=== PATIENT | female | born 1945 | race Caucasian/White ===

== ENCOUNTER 2024-03-03 14:15 | Inpatient (IN) ==
--- NOTE | 2024-03-03 14:25 | Emergency Department Note ---
Impression & Plan Pneumonia, Hypoxia, Acute dehydration, Hypokalemia, Elevated troponin I level ED Provider Note NAME: EVI MOTTA AGE: 79 SEX: F : 1945 ARRIVES VIA: Ambulance INFORMANT: Patient, EMS ED PROVIDER(S): Stevan Frye DO CHIEF COMPLAINT: Shortness of breath HPI: The patient is a 79-year-old female who presented to the emergency department from [facility] from inpatient rehabilitation. The patient was recently admitted there for pneumonia. She was initially seen at [facility]. She initially presented there on February 20. The patient was treated for COVID but also for bacterial pneumonia. She has a history of Parkinson disease. She had altered mental status and had a CAT scan that was done at the previous facility. This showed no acute process according to her paperwork from [facility]. The patient started receiving Zosyn at [facility] for worsening respiratory status. Chest x-ray was done and showed no significant infiltrate. The patient started having worsening altered mental status as well as difficulty breathing. She was noted to have a very low oxygen saturation. She was sent to the emergency department for further evaluation. The patient is not able to give any history at this time. ROS: See above HPI for pertinent positives & negatives. A total of 10 systems reviewed and were otherwise negative. PAST MEDICAL HISTORY: See Below PAST SURGICAL HISTORY: See Below FAMILY HISTORY: See Below SOCIAL HISTORY: See Below HOME MEDICATIONS: See Below ALLERGIES: See Below VITALS: See Below PHYSICAL EXAMINATION: GENERAL: The patient is listless and slow to respond to questions. EYES: The conjunctivae are clear. The pupils are round and reactive. EARS, NOSE, MOUTH AND THROAT: The nose is without any evidence of any deformity. Mucous membranes are dry. NECK: The neck is nontender and supple. RESPIRATORY: Diminished breath sounds are noted in the left lung field. Scattered rhonchi were noted throughout the right. There was tachypnea. CARDIOVASCULAR: Regular rate and rhythm noted there no murmurs rubs or gallops normal S1 normal S2. GASTROINTESTINAL: The abdomen is soft. Abdomen is nontender. MUSCULOSKELETAL/EXTREMITIES: There is no evidence of gross deformity full range of motion is noted in the hips and shoulders. SKIN: Skin was warm and dry. Trace pedal edema was noted bilaterally. NEUROLOGIC: Patient is awake verbal commands. She does not answer questions. MEDICAL DECISION MAKING: The patient is a 79-year-old female who presented to the emergency department for an evaluation of difficulty breathing. The patient was recently diagnosed with pneumonia. She was transferred from an inpatient stay at her previous hospitalization to [facility] only recently. She was also diagnosed with COVID- 19. The patient presents today with worsening symptoms fever and decreased p.o. intake. She was treated with IV fluids and IV antibiotics emergency department. She was reevaluated multiple times. I discussed patient's laboratory and radiographic studies with her. I also discussed her condition with the on-call [facility]ist. They have agreed to evaluate the patient in the emergency department for further management and disposition. Triage Nursing notes reviewed. Prior medical records reviewed Vital Signs: reviewed and remarkable for hypoxia. Differential diagnosis: Reactive airway disease, pneumonia, pneumothorax, COPD, CHF, infections, cardiac ischemia, pulmonary embolism, musculoskeletal, gastrointestinal, as well as other pathologies. ER treatment provided: See below Diagnostics interpreted by me: ECG: EKG was obtained in the emergency department. My interpretation is normal sinus rhythm at 85 bpm. There is no ectopy. Diffuse T wave flattening was noted with nonspecific ST segment abnormalities. No previous tracing was available. Cardiac Monitoring: An order was placed for continuous cardiac monitoring. The monitor shows a rate of 83 beats per with sinus rhythm. Laboratory studies: As stated above and show below. Imaging studies: See below. Radiographic imaging was reviewed by myself Consultation(s): I discussed this case with Dr. Rosen who is on-call for the [facility] group. ED COURSE: Procedures: none Critical Care: I have personally spent greater than 35 minutes of critical care time in the direct management of this patient. This includes bedside care, interpretation of diagnostic studies, and testing, discussion with consultants, patient, and family members, and other required patient management activities. This 35 minutes is in excess of all separately billable procedures. Past Med/Surg History Problem List (Updated 03/03/24 @ 15:40 by Damian Rosen MD) Acute respiratory failure with hypoxia Elevated troponin I level (Acute) Hypokalemia (Acute) Acute dehydration (Acute) Hypoxia (Acute) Pneumonia (Acute) Medical History Hyponatremia Rheumatoid arthritis Glaucoma Parkinsons disease GERD (gastroesophageal reflux disease) Hyperlipidemia Hypertension Asthma Social History Smoking Status: Unknown if ever smoked Feels Safe at Home: Yes Results & Data (ED) Vital Signs Vital Signs - 24 hr 03/03/24 14:17 03/03/24 15:00 03/03/24 15:06 Temperature 37.2 C Temperature Source Oral Pulse Rate 90 84 Pulse Rate from SpO2 Sensor 85 Respiratory Rate 30 H 18 Respiratory Effort / Characteristics Short of Breath Labored Retracting Short of Breath SOB on Exertion Respiratory Depth Retractive Retractive Respiratory Pattern Tachypnea Tachypnea Blood Pressure 136/87 112/84 Blood Pressure Mean 103 93 Pulse Oximetry 90 94 Oxygen Delivery Method Room Air Nasal Cannula Oxygen Flow Rate 2 Sepsis Recent Fever Within 48 Hours Yes Sepsis New/Unexplained Change in Mental Status Yes Sepsis Action Taken by Nursing Physician Notified 03/03/24 15:13 Temperature Temperature Source Pulse Rate 83 Pulse Rate from SpO2 Sensor Respiratory Rate Respiratory Effort / Characteristics Respiratory Depth Respiratory Pattern Blood Pressure Blood Pressure Mean Pulse Oximetry Oxygen Delivery Method Oxygen Flow Rate Sepsis Recent Fever Within 48 Hours Sepsis New/Unexplained Change in Mental Status Sepsis Action Taken by [facility] Medications Current Medication List: was personally reviewed by me Laboratory Data Attestation: I reviewed the patient's lab results. 03/03/24 14:24 03/03/24 14:24 Lab Results 03/03/24 03/03/24 Range/Units 14:24 14:55 WBC 9.96 (4.8-10.8) K/ul RBC 3.38 L (4.20-5.40) M/uL Hgb 10.4 L (12.0-16.0) g/dl Hct 31.0 L (37.0-47.0) % MCV 91.7 (80.0-100.0) fL MCH 30.8 (25.0-34.0) pg MCHC 33.5 (32.0-36.0) g/dL RDW Std Deviation 45.0 (36.4-46.3) fL RDW Coeff of Ailyn 13.4 (11.5-14.5) % Plt Count 144 (130-400) K/uL MPV 11.8 (9.4-12.4) fL Immature Gran % (Auto) 1.0 % Neut % (Auto) 93.1 % Lymph % (Auto) 4.8 % [place] % (Auto) 1.0 % Eos % (Auto) 0.0 % Baso % (Auto) 0.1 % Neut # (Auto) 9.27 H (1.40-6.50) K/uL Lymph # (Auto) 0.48 L (1.20-3.40) K/uL [place] # (Auto) 0.10 L (0.11-0.59) K/uL Eos # (Auto) 0.00 (0.00-0.50) K/uL Baso # (Auto) 0.01 (0.00-0.20) K/uL Immature Gran # (Auto) 0.10 (0.01-0.20) K/uL Polychromasia 1+ PT 13.1 H (9.0-12.0) Seconds INR 1.2 H (0.9-1.1) APTT 29 (21-31) Seconds PTT Ratio 1.1 VBG pH 7.42 H (7.36-7.41) VBG pCO2 29 L (38-50) mmHg VBG pO2 73 mmHg VBG HCO3 19 mmol/L VBG O2 Saturation 97.1 % VBG Base Excess -5.1 mEq/L Sodium 147 H (136-145) mmol/L Potassium 2.4 L* (3.5-5.1) mmol/L Chloride 116 H (98-107) mmol/L Carbon Dioxide 19 L (21-32) mmol/L Anion Gap 12 H (3-11) BUN 35 H (6-23) mg/dl Creatinine 0.72 (0.6-1.2) mg/dl Est Cr Clr Drug Dosing 62.3 ml/min eGFR 86.06 BUN/Creatinine Ratio 48.6 H (10-20) Glucose 156 H (70-99(Fasting)) mg/dl Lactate 1.6 (0.4-2.0) mmol/L Calcium 8.1 L (8.6-10.3) mg/dl Magnesium 1.9 (1.7-2.4) mg/dl Total Bilirubin 0.7 (0.2-1.0) mg/dl Direct Bilirubin 0.2 (0-0.2) mg/dl AST 45 H (13-39) U/L ALT 22 (7-52) U/L Alkaline Phosphatase 84 (34-104) U/L Troponin I High Sens 99.1 H* (0-14) pg/ml C-Reactive Protein 16.54 H (0-0.5) mg/dl Total Protein 6.3 (6.0-8.3) gm/dl Albumin 3.2 L (3.4-5.0) gm/dl Urine Color Yellow Urine Appearance Cloudy A (Clear) Urine pH 6.5 (4.5-7.5) Ur Specific [place] 1.025 (1.000-1.030) Urine Protein 2+ H (Negative) Urine Glucose (UA) Negative (Negative) Urine Ketones Negative (Negative) Urine Blood Negative (Negative) Urine Nitrite Negative (Negative) Urine Bilirubin Negative (Negative) Urine Urobilinogen Negative (Negative) Ur Leukocyte Esterase Trace H (Negative) Urine WBC (Auto) 11-20 H (0-5) /hpf Urine RBC (Auto) >20 H (0-2) /hpf U Hyaline Cast (Auto) 3-5 H (0-2) /lpf U Epithel Cells (Auto) 11-20 H (0-2) /hpf Urine Bacteria (Auto) None Seen (None Seen) Urine Yeast Present A (None Prsent) Administered Medications Piperacillin Sod/Tazobactam Sod (Zosyn) 4.5 gm in 100 mls @ 200 mls/hr IV NOW ONE; Protocol Stop: 03/03/24 15:54 Last Admin: 03/03/24 15:39 Dose: 200 mls/hr Documented By: KEY Sodium Chloride (Nss) 1,000 mls @ 999 mls/hr IV .Q1H1M MICHAEL Stop: 03/03/24 17:30 Last Admin: 03/03/24 15:41 Dose: 999 mls/hr Documented By: Ladan Imaging Data Attestation: I personally reviewed and interpreted this imaging study as follows: My Impression: 1 view chest x-ray was obtained in the emergency department. My interpretation is no free air, bilateral infiltrates were noted, final report below. Radiologist's Impression: Chest X-Ray 03/03/24 14:16 XR chest 1V portable CLINICAL HISTORY: Sepsis. COMPARISON STUDY: No previous studies for comparison. FINDINGS: There is no pneumothorax or pleural effusion. There is slight elevation of the right hemidiaphragm. Cardiac size is normal. Mediastinal contours are normal. Patchy bilateral lower lung airspace opacities are present. There is no evidence for pulmonary edema. Severe osteoarthritis of both glenohumeral joints. IMPRESSION: Patchy bilateral lower lung airspace opacities which favor an infectious process. Radiographic follow-up to ensure resolution is recommended. ACT 112: Negative or not required by law. Electronically signed by: Alexis Caballero M.D. 03/03/2024 3:18 PM Discharge Plan Visit Data Chief Complaint: Illness Stated Complaint: SOB ED Provider: Stevan Frye Discharge Problem: Pneumonia, Hypoxia, Acute dehydration, Hypokalemia, Elevated troponin I level Patient Disposition: Being Evaluated by Hospitalist Forms Stand Alone Forms: [facility] Referrals Referrals: PCP,NO [Primary Care Provider] - Discharge Problem: Pneumonia Qualifiers: Pneumonia type: due to unspecified organism Laterality: bilateral Lung location: unspecified part of lung Qualified Code(s): J18.9 - Pneumonia, unspecified organism
[2024-03-03 14:53] LABS: Base Excess VBG -5.1 mEq/L; HCO3 VBG 19 mmol/L; Oxygen Saturation VBG 97.1 %; PCO2 VBG 29 mmHg (38-50); PO2 VBG 73 mmHg; pH VBG 7.42 (7.36-7.41)
[2024-03-03 15:14] LABS: Hemoglobin 10.4 g/dl (12.0-16.0); Mean Corpuscular Hemoglobin 30.8 pg (25.0-34.0); Mean Corpuscular Hgb Conc 33.5 g/dL (32.0-36.0); Mean Corpuscular Volume 91.7 fL (80.0-100.0); Mean Platelet Volume 11.8 fL (9.4-12.4); Platelet Count 144 K/uL (130-400); RDW Coefficient of Variation 13.4 % (11.5-14.5); Red Blood Count 3.38 M/uL (4.20-5.40); White Blood Count 9.96 K/ul (4.8-10.8)
--- NOTE | 2024-03-03 15:20 | XRay Report ---
XR chest 1V portable CLINICAL HISTORY: Sepsis. COMPARISON STUDY: No previous studies for comparison. FINDINGS: There is no pneumothorax or pleural effusion. There is slight elevation of the right hemidi aphragm. Cardiac size is normal. Mediastinal contours are normal. Patchy bilateral lower lung airspac e opacities are present. There is no evidence for pulmonary edema. Severe osteoarthritis of both elena ohumeral joints. IMPRESSION: Patchy bilateral lower lung airspace opacities which favor an infectious process. Radiog raphic follow-up to ensure resolution is recommended. ACT 112: Negative or not required by law. Electronically signed by: Alexis Caballero M.D. 03/03/2024 3:18 PM
[2024-03-03 15:26] LABS: Albumin Level 3.2 gm/dl (3.4-5.0); BUN Creatinine Ratio 48.6 (10-20); Bilirubin Direct 0.2 mg/dl (0-0.2); Bilirubin,Total 0.7 mg/dl (0.2-1.0); Calcium 8.1 mg/dl (8.6-10.3); Creatinine Clr Calc Pharmacy 62.3 ml/min; Magnesium 1.9 mg/dl (1.7-2.4); Potassium 2.4 mmol/L (3.5-5.1); Total Protein 6.3 gm/dl (6.0-8.3)
[2024-03-03] MEDS ORDERED: VANCOMYCIN HCL 1,400 MG in SODIUM CHLORIDE 0.9% 500 ML IV ONE (15:28)
[2024-03-03] MEDS ORDERED: VANCOMYCIN CONSULT ACTIVE PRN (15:28)
[2024-03-03 15:30] LABS: Appearance Urine Cloudy (Clear); Bacteria Urine Automated None Seen (None Seen); Bilirubin Urine Negative (Negative); Blood Urine Negative (Negative); Color Urine Yellow; Glucose Urine UA Negative (Negative); Ketones Urine Negative (Negative); Leukocyte Esterase Urine Trace (Negative); Nitrite Urine Negative (Negative); Protein Urine 2+ (Negative); RBC Urine Automated >20 /hpf (0-2); Specific Gravity Urine 1.025 (1.000-1.030); Urobilinogen Urine Negative (Negative); pH Urine 6.5 (4.5-7.5)
[2024-03-03 15:30] LABS: Basophils # (auto) 0.01 K/uL (0.00-0.20); Basophils % (auto) 0.1 %; Lymphocytes # (auto) 0.48 K/uL (1.20-3.40); Lymphocytes % (auto) 4.8 %; Neutrophils # (auto) 9.27 K/uL (1.40-6.50); Neutrophils % (auto) 93.1 %; Polychromasia 1+
[2024-03-03 15:31] LABS: Troponin I High Sensitivity 99.1 pg/ml (0-14)
[2024-03-03 15:34] LABS: INR 1.2 (0.9-1.1); Partial Thromboplastin Ratio 1.1; Partial Thromboplastin Time 29 Seconds (21-31); Prothrombin Time 13.1 Seconds (9.0-12.0)
[2024-03-03] MEDS: PIPERACILLIN/TAZOBACTAM 4.5 GM/100 ML BAG IV ONE (15:39)
[2024-03-03] MEDS: SODIUM CHLORIDE 0.9% 1,000 ML IV SCH (15:41)
[2024-03-03 15:43] LABS: C Reactive Protein 16.54 mg/dl (0-0.5)
--- NOTE | 2024-03-03 15:46 | History & Physical Report ---
Date of Service March 03, 2024 Assessment & Plan (1) Acute respiratory failure with hypoxia: Plan: Suspected aspiration with dysphagia secondary to recent COVID and Parkison's No hypercapnia on VBG Appears she was initially doing better at [facility] with eating and drinking more but then became suddenly a lot worse especially after drinking ensure this morning suggestive of new aspiration (2) Pneumonia: Plan: Suspected aspiration, procalcitonin negative IV Zosyn + azithromycin Can discontinue vancomycin if MRSA nasal swab negative (3) Severe acute respiratory syndrome coronavirus 2 (SARS-CoV-2) RNA test result positive at limit of detection: Plan: Initially tested positive on February 12, not suspicious of new infection She does not need isolation but should be in a single room (4) Hypokalemia: Plan: Suspect most likely due to acetazolamide - I am unclear why she is on this medication but suspect most likely glaucoma Will discontinue acetazolamide and replace potassium initially IV and switch to PO if able to place Corsafe If not resolving consider nephrology consult (5) Hypernatremia: Plan: Appears clinically very dry. After initial fluids will place on D5W half NSS and recheck (6) Oropharyngeal dysphagia: Plan: Strict NPO, plan on Corsafe once initially rehydrated (7) Elevated troponin I level: Plan: Suspected demand ischemia, continue to trend (8) Metabolic encephalopathy: Plan: Stop all sedating medications - baclofen, gabapentin Correct electrolytes (9) Rheumatoid arthritis: Plan: On no medications listed for this (10) Parkinsons disease: Plan: After initial fluid resuscitation plan on restarting Sinemet via Corsafe (11) Osteoporosis: Plan: Holding Forteo at time of admission (12) GERD (gastroesophageal reflux disease): Plan: Continue pantoprazole (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 Unable to obtain history from patient due to non-verbal at this time and limited responsiveness. History also limited as patient at outside intitutions and notes not completely available at time of admission. History mainly obtained from over the phone. She initially started having COVID symptoms on February 06. He took her to the ER at [facility] on February 12 and she was confirmed to have COVID-19 at that time. The ER gave IV fluids and she felt improved therefore she was discharged home. Apparently doing well for about a day and then progressively was eating and drinking less and slowly became weaker that she had to return to the ER on February 19. She was diagnosed with bacterial pneumonia and treated with antibiotics. She kept getting significantly weaker during this admission and required a lot of assistance to move and was told there was not much more that could be done in the hospital setting therefore she was transferred to [facility] for acute rehabilitation on February 25. He reports she started to eat and drink more at [facility] and was initially improving although the last few days was becoming more tachypneic. She was started on IV Zosyn at [facility] although I am unclear when this was started. The does not think she ever saw speech and language therapy although [facility] do have oropharyngeal dysphagia listed as a diagnosis. Her notes he gave her an ensure this morning and she was coughing a lot after drinking this and on his was home he was called to say she was being transferred to the hospital. He confirms full code status. Per progress note from today at [facility] the patient had acute onset dyspnea and hypoxiam and noted to have a sodium level of 151 and potassium 2.1 this morning. Patient with known history of dysphagia and dementia and concern was she had aspirated. Acetazolamide not on progress note from today but suspect it had just been discontinued at the time of writing as confirmed with [facility] over the phone that she was still getting this medication with last dose this morning. Allergies Allergy/AdvReac Type Severity Reaction Status Date / Time angiotensin II acetate, human Allergy Anaphylaxis Unverified 03/03/24 18:48 etanercept [From Enbrel] Allergy Anaphylaxis Unverified 03/03/24 18:48 mannitol [From Reclast] Allergy Anaphylaxis Unverified 03/03/24 18:48 olmesartan [From Benicar] Allergy Unknown Unverified 03/03/24 18:48 water for injection,sterile Allergy Anaphylaxis Unverified 03/03/24 18:48 [From Reclast] zoledronic acid Allergy Anaphylaxis Unverified 03/03/24 18:48 [From Reclast] Home Medications Medication Instructions Recorded Confirmed Type acetaminophen 325 mg tablet 650 mg PO QID PRN Pain 03/03/24 03/03/24 History acetazolamide 250 mg tablet 250 mg PO BID 03/03/24 03/03/24 History amlodipine 5 mg tablet 5 mg PO DAILY 03/03/24 03/03/24 History atorvastatin 10 mg tablet 10 mg PO HS 03/03/24 03/03/24 History baclofen 10 mg tablet 10 mg PO QID 03/03/24 03/03/24 History bisacodyl 10 mg rectal suppository 10 mg HI DAILY PRN Constipation 03/03/24 03/03/24 History brimonidine 0.2 %-timolol 0.5 % 1 drp ophthalmic (eye) BID 03/03/24 03/03/24 History eye drops carbidopa 25 mg-levodopa 100 mg 1 tab PO QID 03/03/24 03/03/24 History tablet clopidogrel 75 mg tablet 75 mg PO DAILY 03/03/24 03/03/24 History cyanocobalamin (vitamin B-12) 1,000 mcg PO DAILY 03/03/24 03/03/24 History 1,000 mcg tablet dextrose 50 % in water (D50W) 1 g IV DIRECTED PRN Other 03/03/24 03/03/24 History docusate sodium 100 mg capsule 100 mg PO BID 03/03/24 03/03/24 History dorzolamide 2 % eye drops 1 drp ophthalmic (eye) BID 03/03/24 03/03/24 History enoxaparin 40 mg/0.4 mL 40 mg subcut DAILY 03/03/24 03/03/24 History subcutaneous syringe folic acid 1 mg tablet 1 mg PO DAILY 03/03/24 03/03/24 History gabapentin 100 mg capsule 100 mg PO QAM 03/03/24 03/03/24 History gabapentin 100 mg capsule 200 mg PO HS 03/03/24 03/03/24 History latanoprost 0.005 % eye drops 1 drp ophthalmic (eye) PM 03/03/24 03/03/24 History loratadine 10 mg tablet 10 mg PO DAILY 03/03/24 03/03/24 History magnesium hydroxide 400 mg/5 mL 30 ml PO DAILY PRN Constipation 03/03/24 03/03/24 History oral suspension (Milk of Magnesia) magnesium oxide 400 mg PO BID 03/03/24 03/03/24 History ondansetron 4 mg disintegrating 4 mg PO Q4H PRN Nausea 03/03/24 03/03/24 History tablet pantoprazole 20 mg tablet,delayed 20 mg PO DAILYBB 03/03/24 03/03/24 History release piperacillin-tazobactam 4.5 gram 2.25 g IV Q6H 03/03/24 03/03/24 History intravenous solution polyethylene glycol 3350 17 gram 17 g PO DAILY PRN Constipation 03/03/24 03/03/24 History oral powder packet polymyxin B sulfate 10,000 1 drp ophthalmic (eye) Q4H 03/03/24 03/03/24 History unit-trimethoprim 1 mg/mL eye drops potassium chloride 20 mEq oral 40 meq PO QID 03/03/24 03/03/24 History packet sennosides 8.6 mg-docusate sodium 1 tab PO DAILYBL PRN Constipation 03/03/24 03/03/24 History 50 mg tablet sertraline 50 mg tablet 150 mg PO DAILY 03/03/24 03/03/24 History sodium chloride 0.9 % 0.9 ea IV CONTINOUS 03/03/24 03/03/24 History sodium chloride 0.9 % (flush) 5 ml IV Q8H 03/03/24 03/03/24 History sodium phosphates 19 gram-7 133 ml HI DAILY PRN Constipation 03/03/24 03/03/24 History gram/118 mL enema (Enema) teriparatide 20 mcg/dose (600 20 mcg subcut DAILY 03/03/24 03/03/24 History mcg/2.4 mL) subcutaneous pen injector ubiquinone 90 mg disintegrating 200 mg PO DAILY 03/03/24 03/03/24 History tablet vit C-vit D-zmydar-fbuyflzc-omega 1 cap PO DAILY 03/03/24 03/03/24 History 3 100 mg-15 unit-2 mg-100 mg capsule Past Med/Surg History Problem List (Updated 03/04/24 @ 06:43 by Damian Rosen MD) Hypernatremia Severe acute respiratory syndrome coronavirus 2 (SARS-CoV-2) RNA test result positive at limit of detection Myopathy Metabolic encephalopathy Oropharyngeal dysphagia Acute respiratory failure with hypoxia Elevated troponin I level (Acute) Hypokalemia (Acute) Acute dehydration (Acute) Hypoxia (Acute) Pneumonia (Acute) Medical History (Updated 03/04/24 @ 06:43 by Damian Rosen MD) History of TIA (transient ischemic attack) Osteoporosis Hyponatremia Rheumatoid arthritis Glaucoma Parkinsons disease GERD (gastroesophageal reflux disease) Hyperlipidemia Hypertension Asthma Social History Smoking Status: Unknown if ever smoked Preferred Language: Maltese [employer] Required: No Current Living Situation: Rehab Feels Safe at Home: Yes Review of Systems Review of Systems: Unobtainable due to cognitive status Physical Exam Constitutional: well developed; + not well nourished and no acute distress Eyes: PERRL, conjunctivae normal, anicteric sclerae ENMT: Mouth: + dry oral mucous membranes Neck: trachea midline, no thyromegaly Respiratory: + respiratory distress, + labored breath ing, + uses accessory muscles and + tachypneic Cardiovascular: RRR, no murmur, no edema Gastrointestinal (Abdomen): normal bowel sounds, soft, nontender, no hepatosplenomegaly Skin: no rashes, warm and dry Neurologic: moves all extremities (not to direction), awake (to voice but non verbal) and + confused Psychiatric: Orientation: alert (to voice); + not oriented x 3 Genitourinary: no CVA tenderness Results & Data Results & Data Vital Signs (Past 12 Hours) Vital Signs Temp Pulse Resp BP Pulse Ox O2 Del Method O2 Flow Rate 03/03/24 15:13 83 03/03/24 15:06 84 18 112/84 94 03/03/24 15:00 Nasal Cannula 2 03/03/24 14:17 37.2 C 90 30 H 136/87 90 Room Air Laboratory Results Abnormal lab results 03/03/24 03/03/24 Range/Units 14:24 14:55 RBC 3.38 L (4.20-5.40) M/uL Hgb 10.4 L (12.0-16.0) g/dl Hct 31.0 L (37.0-47.0) % Neut # (Auto) 9.27 H (1.40-6.50) K/uL Lymph # (Auto) 0.48 L (1.20-3.40) K/uL Wallace # (Auto) 0.10 L (0.11-0.59) K/uL PT 13.1 H (9.0-12.0) Seconds INR 1.2 H (0.9-1.1) VBG pH 7.42 H (7.36-7.41) VBG pCO2 29 L (38-50) mmHg Sodium 147 H (136-145) mmol/L Potassium 2.4 L* (3.5-5.1) mmol/L Chloride 116 H (98-107) mmol/L Carbon Dioxide 19 L (21-32) mmol/L Anion Gap 12 H (3-11) BUN 35 H (6-23) mg/dl BUN/Creatinine Ratio 48.6 H (10-20) Glucose 156 H (70-99(Fasting)) mg/dl Calcium 8.1 L (8.6-10.3) mg/dl AST 45 H (13-39) U/L Troponin I High Sens 99.1 H* (0-14) pg/ml Albumin 3.2 L (3.4-5.0) gm/dl Urine Appearance Cloudy A (Clear) Urine Protein 2+ H (Negative) Ur Leukocyte Esterase Trace H (Negative) Urine WBC (Auto) 11-20 H (0-5) /hpf Urine RBC (Auto) >20 H (0-2) /hpf U Hyaline Cast (Auto) 3-5 H (0-2) /lpf U Epithel Cells (Auto) 11-20 H (0-2) /hpf Urine Yeast Present A (None Prsent) Diagnostic Findings XR chest 1V portable CLINICAL HISTORY: Sepsis. COMPARISON STUDY: No previous studies for comparison. FINDINGS: There is no pneumothorax or pleural effusion. There is slight elevation of the right hemidiaphragm. Cardiac size is normal. Mediastinal contours are normal. Patchy bilateral lower lung airspace opacities are present. There is no evidence for pulmonary edema. Severe osteoarthritis of both glenohumeral joints. IMPRESSION: Patchy bilateral lower lung airspace opacities which favor an infectious process. Radiographic follow-up to ensure resolution is recommended. Medications Administered ER Medications Given: Zosyn 4.5 g IV Potassium chloride 10 mEq IV x 2 Vancomycin 1500 mg IV Normal saline 1 L bolus ECG Rate (beats per minute): 85 Rhythm: normal sinus Findings: no acute ischemic change Comparison ECG Date: no prior available Code Status & VTE Plan Code Status Full as discussed with her VTE Prophylaxis Plan VTE Prophylaxis will be ordered: Yes PG Care Time/CCT Total # of Minutes Spent Total Time Spent with Patient: Total time spent is greater than 50% in coordination of care (as documented) at patient's floor/unit and/or counseling patient: Coding Level of Care Code 27665 INT INP/OBS CARE 3/75MIN Diagnoses Acute respiratory failure with hypoxia J96.01 Pneumonia J18.9 Laterality: bilateral Lung location: unspecified part of lung Pneumonia type: due to unspecified organism Severe acute respiratory syndrome coronavirus 2 (SARS-CoV-2) RNA test result positive at limit of detection U07.1 Hypokalemia E87.6 Hypernatremia E87.0 Oropharyngeal dysphagia R13.12 Elevated troponin I level R79.89 Metabolic encephalopathy G93.41 Rheumatoid arthritis M06.9 Parkinsons disease G20.A1 Osteoporosis M81.0 GERD (gastroesophageal reflux disease) K21.9 Myopathy G72.9 History of TIA (transient ischemic attack) Z86.73 (2) Pneumonia Laterality: bilateral Lung location: unspecified part of lung Pneumonia type: due to unspecified organism Qualified Code(s): J18.9 - Pneumonia, unspecified organism
[2024-03-03 16:00] LABS: Influenza A virus by PCR Negative (Neg); Influenza B virus by PCR Negative (Neg); RSV by PCR Negative (Neg); SARS CoV2 RNA(COVID-19) Ceph POSITIVE (Negative)
[2024-03-03] MEDS: POTASSIUM CHLORIDE / WTR 10 MEQ/100 ML PLCT IV SCH ×2 (16:08→19:37)
[2024-03-03] MEDS: LACTATED RINGER'S 1,000 ML IV ONE (16:08)
[2024-03-03] MEDS: VANCOMYCIN HCL 1,500 MG in SODIUM CHLORIDE 0.9% 500 ML IV ONE (16:32)
[2024-03-03] MEDS: AZITHROMYCIN 500 MG in DEXTROSE 5% 250 ML IV STA (19:31)
--- NOTE | 2024-03-03 19:42 | XRay Report ---
KUB CLINICAL HISTORY: feeding tube placement COMPARISON STUDY: None. FINDINGS: The tip of the feeding tube projects over the first portion of duodenum. Bilateral airspace opacities are greater within the right lung. Visualized bowel gas pattern is unremarkable. No eviden ce for free air on this exam. IMPRESSION: 1. Tip of feeding tube projects over the first portion of the duodenum. 2. Bilateral airspace opacities, greater within the right lung. The findings favor pneumonia. ACT 112: Negative or not required by law. Electronically signed by: Alexis Caballero M.D. 03/03/2024 7:40 PM
[2024-03-03] MEDS: PIPERACILLIN/TAZOBACTAM 4.5 GM/100 ML BAG IV SCH (20:02)
[2024-03-03] MEDS ORDERED: CARBIDOPA/LEVODOPA 25/100MG TAB PO SCH (21:00)
[2024-03-03 21:39] LABS: BUN Creatinine Ratio 46.8 (10-20); Creatinine Clr Calc Pharmacy 72.3 ml/min; Phosphorus 2.1 mg/dl (2.5-4.9); Potassium 2.5 mmol/L (3.5-5.1)
[2024-03-03 21:41] LABS: Adenovirus PCR Not Detected (NotDetected); Bordetella parapertussis PCR Not Detected (NotDetected); Bordetella pertussis PCR Not Detected (NotDetected); Chlamydia pneumoniae PCR Not Detected (NotDetected); Coronavirus 229E PCR Not Detected (NotDetected); Coronavirus CoV-2 (COVID19)PCR DETECTED (NotDetected); Coronavirus HKU1 PCR Not Detected (NotDetected); Coronavirus NL63 PCR Not Detected (NotDetected); Coronavirus OC43PCR Not Detected (NotDetected); Human Metapneumovirus PCR Not Detected (NotDetected); Influenza A PCR Not Detected (NotDetected); Influenza B PCR Not Detected (NotDetected); Mycoplasma pneumoniae PCR Not Detected (NotDetected); Parainfluenza Virus 1 PCR Not Detected (NotDetected); Parainfluenza Virus 2 PCR Not Detected (NotDetected); Parainfluenza Virus 3 PCR Not Detected (NotDetected); Parainfluenza Virus 4 PCR Not Detected (NotDetected); Respiratory Syncytial VirusPCR Not Detected (NotDetected); Rhinovirus/Enterovirus PCR Not Detected (NotDetected)
[2024-03-03] MEDS: AZITHROMYCIN 250 MG in DEXTROSE 5% 250 ML IV SCH (21:50)
[2024-03-03] MEDS: CARBIDOPA/LEVODOPA 25/100MG TAB NG SCH (21:59)
[2024-03-03] MEDS: DOCUSATE SODIUM SYRUP 100 MG/10 ML UDC NG SCH (21:59)
[2024-03-03] MEDS: MAGNESIUM OXIDE 400 MG TAB NG SCH (22:00)
[2024-03-03] MEDS: POTASSIUM CHLORIDE PWD 20 MEQ PACK NG SCH (22:00)
[2024-03-03] MEDS: LATANOPROST 0.005% OP SOLN 2.5 ML BTL OP SCH (22:01)
[2024-03-03] MEDS: TRIMETHOPRIM/POLYMYXIN B OP SCH (22:02)
[2024-03-03] MEDS: DORZOLAMIDE HCL 2% OPH SOLN 10 ML BTL OP SCH (22:03)
[2024-03-03 22:38] LABS: Troponin I High Sensitivity 94.5 pg/ml (0-14)
[2024-03-03] MEDS: ENOXAPARIN INJ 40 MG/0.4 ML SYR SQ SCH (23:00)
[2024-03-03] MEDS: SODIUM CHLOR 7% 4 ML NEB NEB SCH (23:47)
[2024-03-04] MEDS: D5W AND 1/2NSS + 20MEQ KCL 20 MEQ/1,000 ML BAG IV SCH (02:07)
[2024-03-04 06:08] LABS: Base Excess VBG -3.6 mEq/L; HCO3 VBG 21 mmol/L; Oxygen Saturation VBG 65.6 %; PCO2 VBG 34 mmHg (38-50); PO2 VBG 38 mmHg; pH VBG 7.39 (7.36-7.41)
[2024-03-04 06:18] LABS: Hematocrit (blood only) 27.1 % (37.0-47.0); Hemoglobin 8.9 g/dl (12.0-16.0); Mean Corpuscular Hemoglobin 30.5 pg (25.0-34.0); Mean Corpuscular Hgb Conc 32.8 g/dL (32.0-36.0); Mean Corpuscular Volume 92.8 fL (80.0-100.0); Mean Platelet Volume 11.6 fL (9.4-12.4); Platelet Count 108 K/uL (130-400); RDW Coefficient of Variation 13.6 % (11.5-14.5); RDW Standard Deviation 46.4 fL (36.4-46.3); Red Blood Count 2.92 M/uL (4.20-5.40); White Blood Count 9.77 K/ul (4.8-10.8)
[2024-03-04] MEDS: LANSOPRAZOLE 30 MG SOLTAB NG SCH (06:19)
[2024-03-04 06:42] LABS: BUN Creatinine Ratio 46.8 (10-20); Basophils # (auto) 0.01 K/uL (0.00-0.20); Basophils % (auto) 0.1 %; Calcium 7.8 mg/dl (8.6-10.3); Immature Granulocytes # (auto) 0.06 K/uL (0.01-0.20); Immature Granulocytes % (auto) 0.6 %; Lymphocytes # (auto) 0.85 K/uL (1.20-3.40); Lymphocytes % (auto) 8.7 %; Monocytes # (auto) 0.11 K/uL (0.11-0.59); Monocytes % (auto) 1.1 %; Neutrophils # (auto) 8.74 K/uL (1.40-6.50); Neutrophils % (auto) 89.5 %; Polychromasia 2+; Potassium 2.6 mmol/L (3.5-5.1)
[2024-03-04 07:01] LABS: Albumin Globulin Ratio 1.1 (0.9-2); Albumin Level 2.8 gm/dl (3.4-5.0); Bilirubin,Total 0.6 mg/dl (0.2-1.0); Globulin 2.6 gm/dl (2.5-4.0); Magnesium 1.7 mg/dl (1.7-2.4); Phosphorus 1.5 mg/dl (2.5-4.9); Total Protein 5.4 gm/dl (6.0-8.3)
[2024-03-04] MEDS ORDERED: POTASSIUM PHOS 3 MMOL/1 ML INFUSION IV STA ×2 (07:21→23:43)
[2024-03-04] MEDS: POTASSIUM CHLORIDE / WTR 10 MEQ/100 ML PLCT IV SCH (07:42)
[2024-03-04] MEDS: SERTRALINE HCL 50 MG TABLET PEG SCH (08:28)
[2024-03-04] MEDS: LORATADINE 10 MG TAB NG SCH (08:28)
[2024-03-04] MEDS: CLOPIDOGREL BISULFATE 75 MG TAB NG SCH (08:28)
[2024-03-04] MEDS: FOLIC ACID 1 MG TAB PO SCH (08:29)
[2024-03-04] MEDS: CYANOCOBALAMIN (B-12) 500 MCG TABLET NG SCH (08:29)
[2024-03-04] MEDS: TRIMETHOPRIM/POLYMYXIN B OP SCH (08:30)
[2024-03-04 09:22] LABS: C Reactive Protein 22.94 mg/dl (0-0.5)
[2024-03-04] MEDS: THIAMINE HCL 200 MG in SODIUM CHLORIDE 0.9% 50 ML IV SCH (11:35)
[2024-03-04] MEDS: POTASSIUM PHOSPHATE 30 MMOL in SODIUM CHLORIDE 0.9% 500 ML IV ONE (13:17)
--- NOTE | 2024-03-04 14:27 | Electrocardiogram Report ---
Test Reason : Blood Pressure : */* mmHG Vent. Rate : 85 BPM Atrial Rate : 85 BPM P-R Int : 126 ms QRS Dur : 80 ms QT Int : 412 ms P-R-T Axes : -3 7 36 degrees QTcB Int : 490 ms Normal sinus rhythm Cannot rule out Anterior infarct , age undetermined ; likely lead placement Otherwise normal ECG No previous ECGs available Confirmed by Lam Collazo ([id number]) on 03/04/2024 2:27:34 PM Referred By: [facility] Confirmed By: Lam Collazo
[2024-03-04] MEDS: TUBE FEEDING WATER FLUSH NG SCH (16:05)
[2024-03-04] MEDS: ACETAMINOPHEN 500 MG TAB PO PRN (20:45)
--- NOTE | 2024-03-04 21:45 | Hospitalist Progress Note ---
Date of Service March 04, 2024 Assessment & Plan (1) Acute respiratory failure with hypoxia: Plan: Suspected aspiration with dysphagia secondary to refeeding syndrome/recent COVID and Parkison's No hypercapnia on VBG Appears she was initially doing better at [facility] with eating and drinking more but then became suddenly a lot worse especially after drinking ensure this morning suggestive of new aspiration Electrolytes are being replenished (2) Pneumonia: Plan: Suspected aspiration, procalcitonin negative IV Zosyn + azithromycin Can discontinue vancomycin if MRSA nasal swab negative (3) Severe acute respiratory syndrome coronavirus 2 (SARS-CoV-2) RNA test result positive at limit of detection: Plan: Initially tested positive on February 12, not suspicious of new infection She does not need isolation but should be in a single room (4) Hypokalemia: Plan: Suspect most likely due to refeeding syndrome/ perhaps may be due to acetazolamide - I am unclear why she is on this medication but suspect most likely glaucoma Will discontinue acetazolamide and replace potassium initially IV and switch to PO if able to place Corsafe If not resolving consider nephrology consult L (5) Hypernatremia: Plan: Appears clinically very dry. After initial fluids will place on D5W half NSS and recheck (6) Oropharyngeal dysphagia: Plan: Strict NPO, plan on Corsafe once initially rehydrated (7) Elevated troponin I level: Plan: Suspected demand ischemia, continue to trend (8) Metabolic encephalopathy: Plan: Stop all sedating medications - baclofen, gabapentin Correct electrolytes (9) Rheumatoid arthritis: Plan: On no medications listed for this (10) Parkinsons disease: Plan: After initial fluid resuscitation plan on restarting Sinemet via Corsafe (11) Osteoporosis: Plan: Holding Forteo at time of admission (12) GERD (gastroesophageal reflux disease): Plan: Continue pantoprazole (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 is at bedside. Review of Systems Review of Systems: All systems reviewed & are unremarkable except as noted in HPI & below Physical Exam Constitutional: well developed; + not well nourished and no acute distress Eyes: PERRL, conjunctivae normal, anicteric sclerae Neck: trachea midline, no thyromegaly Respiratory: normal respiratory effort Cardiovascular: RRR, no murmur, no edema Gastrointestinal (Abdomen): normal bowel sounds, soft, nontender, no hepatosplenomegaly Skin: no rashes, warm and dry Neurologic: moves all extremities (not to direction), awake (to voice but non verbal) and + confused Psychiatric: Orientation: alert (to voice); + not oriented x 3 Genitourinary: no CVA tenderness Results & Data Results & Data Vital Signs (Past 12 Hours) Vital Signs Temp Pulse Pulse Resp BP Pulse Ox O2 Del Method 03/04/24 19:47 79 18 96 Nasal Cannula 03/04/24 16:50 37.5 C 99 H 17 154/88 H 93 Nasal Cannula 03/04/24 12:51 36.4 C L 89 17 163/87 H 94 Nasal Cannula O2 Flow Rate 03/04/24 19:47 2 03/04/24 16:50 2 03/04/24 12:51 2 PG Care Time/CCT Total # of Minutes Spent Total Time Spent with Patient: Total time spent is greater than 50% in coordination of care (as documented) at patient's floor/unit and/or counseling patient: Coding Level of Care Code 12832 SUB INP/OBS CARE 2MIN Diagnoses Acute respiratory failure with hypoxia J96.01 Pneumonia J18.9 Laterality: bilateral Lung location: unspecified part of lung Pneumonia type: due to unspecified organism Severe acute respiratory syndrome coronavirus 2 (SARS-CoV-2) RNA test result positive at limit of detection U07.1 Hypokalemia E87.6 Hypernatremia E87.0 Oropharyngeal dysphagia R13.12 Elevated troponin I level R79.89 Metabolic encephalopathy G93.41 Rheumatoid arthritis M06.9 Parkinsons disease G20.A1 Osteoporosis M81.0 GERD (gastroesophageal reflux disease) K21.9 Myopathy G72.9 History of TIA (transient ischemic attack) Z86.73 (2) Pneumonia Laterality: bilateral Lung location: unspecified part of lung Pneumonia type: due to unspecified organism Qualified Code(s): J18.9 - Pneumonia, unspecified organism
[2024-03-04 23:26] LABS: Magnesium 1.6 mg/dl (1.7-2.4); Phosphorus 1.8 mg/dl (2.5-4.9)
[2024-03-05] MEDS: MAGNESIUM SULFATE / D5W 1 GM/100 ML BAG IV SCH (00:34)
[2024-03-05] MEDS: POTASSIUM PHOSPHATE 30 MMOL in SODIUM CHLORIDE 0.9% 500 ML IV ONE (02:25)
--- NOTE | 2024-03-05 07:52 | XRay Report ---
XR chest 1V portable CLINICAL HISTORY: Increase O2 demand TECHNIQUE: Single frontal radiograph of the chest was obtained. Comparison: Comparison is made to chest radiograph 03/03/2024 FINDINGS: Enteric tube is partially visualized. Calcified aortic knob is seen. Airspace opacities are visible i n the right midlung. Interstitial thickening is seen. No evidence of pleural effusion or pneumothorax . IMPRESSION: Scattered airspace opacities are increased in conspicuity from prior exam compatible with pneumonia/a spiration. ACT 112: Negative or not required by law. Electronically signed by: Chris Murphy M.D. 03/05/2024 7:50 AM
[2024-03-05 07:55] LABS: Basophils # (auto) 0.01 K/uL (0.00-0.20); Basophils % (auto) 0.1 %; Hematocrit (blood only) 27.4 % (37.0-47.0); Hemoglobin 9.4 g/dl (12.0-16.0); Immature Granulocytes # (auto) 0.07 K/uL (0.01-0.20); Immature Granulocytes % (auto) 0.7 %; Lymphocytes # (auto) 0.82 K/uL (1.20-3.40); Lymphocytes % (auto) 8.7 %; Mean Corpuscular Hemoglobin 31.2 pg (25.0-34.0); Mean Corpuscular Hgb Conc 34.3 g/dL (32.0-36.0); Mean Platelet Volume 12.2 fL (9.4-12.4); Monocytes # (auto) 0.09 K/uL (0.11-0.59); Neutrophils # (auto) 8.48 K/uL (1.40-6.50); Neutrophils % (auto) 89.5 %; Platelet Count 114 K/uL (130-400); RDW Coefficient of Variation 13.8 % (11.5-14.5); RDW Standard Deviation 46.8 fL (36.4-46.3); Red Blood Count 3.01 M/uL (4.20-5.40); White Blood Count 9.47 K/ul (4.8-10.8)
[2024-03-05 08:11] LABS: Albumin Level 2.7 gm/dl (3.4-5.0); Bilirubin,Total 0.6 mg/dl (0.2-1.0); Calcium 7.8 mg/dl (8.6-10.3); Creatinine Clr Calc Pharmacy 114.8 ml/min; Globulin 2.7 gm/dl (2.5-4.0); Magnesium 2.4 mg/dl (1.7-2.4); Phosphorus 3.6 mg/dl (2.5-4.9); Potassium 3.6 mmol/L (3.5-5.1); Total Protein 5.4 gm/dl (6.0-8.3)
[2024-03-05] MEDS ORDERED: VANCOMYCIN CONSULT ACTIVE PRN (11:35)
[2024-03-05] MEDS: VANCOMYCIN HCL 1,500 MG in SODIUM CHLORIDE 0.9% 500 ML IV ONE (12:53)
--- NOTE | 2024-03-05 14:09 | Pharmacy Report ---
Pharmacy PK ABX Note - Date of Service March 05, 2024 - Assessment and Plan Assessment 79 year old F ordered vancomycin today for treatment of a Staph sp UTI and possible aspiration pneumonia. She was on vancomycin previously that was discontinued 03/03. It was reordered to start today due to postive urine culture and the patient has also been febrile last evening and today. * Pertinent microbiologic data includes: Staph sp and evelia albicans/dubliniensis growing in the urine, blood cultures are pending, nasal MRSA swab is negative, and respiratory biofire is negative. * Patient also continues on azithromycin and zosyn. Day # 1 of vancomycin therapy. Plan Vancomycin * Loading dose: 1500 mg IV x 1 * Maintenance dose: 1250 mg IV every 12 hours * Regimen is predicted to achieve target AUC/NIKKI of 400-600 mg/L.hr * Trough level will be ordered within the next few day. Pharmacy will continue to follow and will adjust dose/frequency as necessary. Thank you. Pharmacy has transitioned to AUC monitoring for vancomycin. AUC/NIKKI is the pref erred PK/PD target and is associated with decreased risk of nephrotoxicity compared to traditional trough targets.
[2024-03-05 15:20] LABS: BUN Creatinine Ratio 36.2 (10-20); Calcium 7.8 mg/dl (8.6-10.3); Creatinine Clr Calc Pharmacy 95.3 ml/min; Magnesium 2.1 mg/dl (1.7-2.4); Potassium 4.1 mmol/L (3.5-5.1)
[2024-03-05] MEDS: PEPTAMEN 1.5 CAL 1,000 ML BAG NG SCH (17:59)
[2024-03-05] MEDS: VANCOMYCIN HCL 1,250 MG in SODIUM CHLORIDE 0.9% 250 ML IV SCH (21:51)
--- NOTE | 2024-03-06 00:09 | Communication Note ---
Date of Service: March 06, 2024 Called to bedside 2200 d/t increased RR and HR. Patient noted to have increased labored breathing and despite ongoing confusion, is intermittently saying 'help me'. Upon presentation to baseline patient denies any pain, shortness of breath, or subjective fever. Upon chart review, patient febrile throughout day 03/05. Blood cultures obtained 1230 and abx coverage expanded to now include Vancomycin. O2 demand also increasing throughout the day 03/05 (from 2 to 4 to 6, now 9L). Patient meeting three SIRS criteria (fever, tachycardia, tachypnea w/o leukocytosis), concern exists for sepsis given known aspiration pneumonia. Vitals: fever, tachycardia, tachypnea, hypertension Examination: Confusion, minimal conversation, responsive to commands. Heart tachycardic with regular rhythm. Lungs with significant upper airway sounds as well as crackles throughout. Active bowel sounds. NGT intact. Trace LE edema. Distal pulses 2+, capillary refill <2 seconds. Assessment/Plan: - CXR obtained showing progression - ABG obtained and largely unremarkable, pH wnl - CBC, CMP, Mag, Phos, Lactate, CRP, and Procal obtained - 250 mL bolus LR provided w/ improvement of HR from 130 to 110, additional 250 mL bolus provided - Presentation most consistent w/ progressive aspiration, thus tube feedings stopped - WBC count remains wnl and lactate negative, but CRP rising and Procal now positive (negative on admission) - Blood cultures remain pending - Continue Azithromycin, Zosyn, and Vancomycin at this time - Provided Xopinex nebulizer - CTA PE Protocol obtained to evaluate for PE in setting of tachycardia/tachypnea and further characterize extent of aspiration No 03/05 Hospitalist note as of 03/06 200. Resident Activity Tracking Resident Involvement: Resident Care Provided Care Provided: Adult Hospital Medicine
[2024-03-06 00:12] LABS: Base Excess ABG -8.2 mEq/L (-9-1.8); HCO3 ABG 14 mmol/L (19-24); Oxygen Saturation ABG 97.6 % (90-95); PCO2 ABG 20 mmHg (35-46); PO2 ABG 84 mmHg (80-95); pH ABG 7.44 (7.35-7.45)
[2024-03-06 00:15] LABS: Allen Test Pos (Pos)
[2024-03-06 00:45] LABS: Hematocrit (blood only) 28.4 % (37.0-47.0); Hemoglobin 9.6 g/dl (12.0-16.0); Mean Corpuscular Hemoglobin 30.9 pg (25.0-34.0); Mean Corpuscular Hgb Conc 33.8 g/dL (32.0-36.0); Mean Corpuscular Volume 91.3 fL (80.0-100.0); Platelet Count 113 K/uL (130-400); RDW Coefficient of Variation 13.7 % (11.5-14.5); RDW Standard Deviation 45.4 fL (36.4-46.3); Red Blood Count 3.11 M/uL (4.20-5.40); White Blood Count 9.23 K/ul (4.8-10.8)
[2024-03-06 01:00] LABS: Basophils # (auto) 0.01 K/uL (0.00-0.20); Basophils % (auto) 0.1 %; Immature Granulocytes # (auto) 0.07 K/uL (0.01-0.20); Immature Granulocytes % (auto) 0.8 %; Lymphocytes # (auto) 0.37 K/uL (1.20-3.40); Monocytes % (auto) 1.1 %; Neutrophils # (auto) 8.68 K/uL (1.40-6.50); Polychromasia 2+
[2024-03-06 01:01] LABS: BUN Creatinine Ratio 40.4 (10-20); Calcium 7.8 mg/dl (8.6-10.3); Creatinine Clr Calc Pharmacy 95.3 ml/min; Potassium 4.7 mmol/L (3.5-5.1)
[2024-03-06 01:13] LABS: Albumin Globulin Ratio 0.9 (0.9-2); Albumin Level 2.6 gm/dl (3.4-5.0); Bilirubin,Total 0.6 mg/dl (0.2-1.0); Phosphorus 1.1 mg/dl (2.5-4.9); Total Protein 5.6 gm/dl (6.0-8.3)
[2024-03-06 01:17] LABS: C Reactive Protein 27.67 mg/dl (0-0.5)
[2024-03-06] MEDS: LEVALBUTEROL HCL 0.63 MG/3 ML NEB NEB STA (01:21)
[2024-03-06] MEDS ORDERED: SODIUM PHOSPHATE 3 MMOL/1 ML 5 ML VIAL IV STA (01:31)
[2024-03-06] MEDS: OPTIRAY 320 125ml IV ONE (02:00)
[2024-03-06] MEDS: SODIUM CHLORIDE 0.9% IV ONE (02:12)
[2024-03-06] MEDS: SODIUM PHOSPHATE IV ONE (02:12)
[2024-03-06] MEDS ORDERED: methylPREDNISolone 125 MG/2 ML VIAL IV STA (02:34)
[2024-03-06] MEDS ORDERED: SODIUM CHLORIDE 0.9% 250 ML IV PRN (02:35)
--- NOTE | 2024-03-06 03:05 | CT Scan Report ---
Exam(s): CTA CHEST IV Amt: 119 ml opti 320 EXAM: CT Angiography Chest With Intravenous Contrast CLINICAL HISTORY: Reason for exam: PE r/o, known R aspiration. TECHNIQUE: Axial computed tomographic angiography images of the chest with intravenous contrast. CTDI is 23.56 mGy and DLP is 695.9 mGy-cm. Automated exposure control was utilized for the study. A dose lowering technique was utilized adhering to the principles of ALARA. MIP reconstructed images were created and reviewed. COMPARISON: No relevant prior studies available. FINDINGS: Pulmonary arteries: Unremarkable. No pulmonary embolism. Aorta: No acute findings. No thoracic aortic aneurysm. Lungs: Patchy bilateral airspace consolidations, consistent with severe multilobar pneumonia. Small bilateral parapneumonic effusions. Pleural space: Unremarkable. No significant effusion. No pneumothorax. Heart: Unremarkable. No cardiomegaly. No significant pericardial effusion. No evidence of RV dysfunction. Bones/joints: No acute fracture. No dislocation. Soft tissues: Unremarkable. Lymph nodes: Unremarkable. No enlarged lymph nodes. Tubes, lines and devices: Feeding tube terminates in the stomach. IMPRESSION: 1. No pulmonary embolism. 2. Patchy bilateral airspace consolidations, consistent with severe multilobar pneumonia. Small bilateral parapneumonic effusions. 3. Feeding tube terminates in the stomach. Electronically signed by: Vincent Kaplan MD 03/06/24 03:04 AM
[2024-03-06] MEDS: methylPREDNISolone 60 MG in SYRINGE 0 ML IV STA (03:14)
[2024-03-06] MEDS: MoRPHine SULFATE 2 MG/ML CARP IV STA (03:14)
[2024-03-06] MEDS: ALBUMIN 25% 25 GM/100 ML VIAL IV SCH (03:15)
[2024-03-06] MEDS: MoRPHine SULFATE 2 MG/ML CARP ONE (03:25)
[2024-03-06] MEDS: acetaZOLAMIDE 250 MG in SYRINGE 0 ML IV STA (03:34)
[2024-03-06 04:31] LABS: Thyroid Stimulating Hormone 0.402 uIu/ml (0.300-4.500)
--- NOTE | 2024-03-06 04:40 | Critical Care Consultation ---
Date of Consultation March 06, 2024 Assessment & Plan (1) Metabolic encephalopathy: (2) Respiratory failure: (3) Respiratory alkalosis: (4) Metabolic acidosis: (5) Pneumonia: (6) Severe acute respiratory syndrome coronavirus 2 (SARS-CoV-2) RNA test result positive at limit of detection: (7) Electrolyte disturbance: Plan Reason Critically Ill: 79 YOF presents to the ICU for hypocarbic and hypoxic respiratory failure in the setting of prolonged COVID and pneumonia Neuro - Encephalopathy, sedation for mechanical ventilation, hx of myopathy, Hx of Parkinsons, Hx TIA CAM ICU: NEGATIVE - Sedation for mechanical ventilation ERI goal -1: Propofol infusion, fentanyl PRN - reported history of myopathy- possibly related to COVID - difficult at this time to estimate her underlying function and movement with underlying parkinson's as well- consider LP if no improvement - She restarted her carbidopa/levodopa on 03/05/24 - Continue Plavix for TIA - Send CK Cardiac - Tacyhycardia - multifactorial to include electrolyte disturbances, hypoxia, mixed respiratory alkalosis with metabolic acidosis - treat underlying respiratory and metabolic disorder and follow hemodynamic response. BNP 4000 Respiratory - Hypocarbic/Hypoxic respiratory failure, bilateral multifocal pneumonia, prolonged COVID - Required intubation for hypocarbic and hypoxic respiratory failure in setting of pneumonia - CT negative for PE- responded will to PEEP and intubation - Pneumonia -COVID-19 with superimposed bacterial likely -Out of the window for remdesivir Continue with dexamethasone 10 mg on a daily basis CRP 23 GI - Failure to thrive RENAL/LYTES - Respiratory alkalosis, metabolic acidosis, elevated lactate level , hypernatremia and other electrolyte disturbances - Hypernatremia - likely related to decreased free water - re-introduce today - Her metabolic acidosis is multifactorial- she was on Farxiga - which raises the question of euglycemic DKA-urine ketones tracely positive We unfortunately don't have the ability to run hydroxybutyrate at this time - No acute needs - Trevino to gravity ENDO - DMII - Hold Farxega- ICU hyper/hypoglycemic protocol - TSH will check now related to her hypoapnea HEME - No acute needs ID - Sepsis - source pulmonary at this time- bacterial vs. viral vs. aspiration or combination of any of them -Continue with antibiotics - MRSA swab negative - PCT 0.51 -Follow-up urine Legionella - Sputum sample pending - Blood cultures from 03/05/24- NGTD --Urine culture growing coagulase-negative staph and Yael Likely contaminant, doxycycline should cover coagulase-negative staph which is oxacillin resistant LINES/IV ACCESS - PIV x2, DHT, ETT, Trevino catheter Continue use of these lines DVT PROPHYLAXIS - SCDS, Lovenox 40mg daily DISPO: ICU while intubated and sedated. At this time most likely cause for her decline is sepsis with respiratory failure. Supervising Physician Co-Signing Physician Notes I saw and evaluated the patient with ALESIA Roberto, and agree with findings and plan as documented in the note. CT chest 03/06/2024 personally reviewed: Diffuse groundglass opacities appreciated bilaterally upper and lower lobes Small bilateral pleural effusion No pulmonary emboli No significant mediastinal lymphadenopathy At the time of examination patient was on 15 of propofol, her MAP was 65 without being on any vasopressors She was breathing with the vent at 28. RASS -2 Still spiking fever Tmax 38.1 Constitutional: No acute distress HEENT: PERRLA Respiratory system: Recent entry bilaterally, no wheeze, no rhonchi, positive crackles bilaterally CVS: S1-S2 positive, no murmurs or gallops Abdomen: Soft, nontender, nondistended, positive bowel sounds x4 Extremities: +2 pulses bilaterally radialis/ dorsalis pedis, no cyanosis, +1 edema bilateral lower extremity Neuro: Breathing with the vent, RASS -2 Psych: Unable to assess G/U: Positive Trevino --Prophylaxis VTE: Lovenox GI: Lansoprazole Lines: Left radial Diet: Tube feeds Plan: In/out: +2 L, urine output 151 DC Solu-Medrol, give the patient dexamethasone 10 mg on a daily basis Given that the QTc is prolonged, DC azithromycin and give the patient doxycycline 100 mg twice daily for 5 days For hyponatremia will give to 50 mL every 6 hours flushes through the NGT DC vancomycin given nasal MRSA is negative I do think patient's presentation is secondary to severe COVID-19 pneumonia with possible bacterial superinfection I have personally spent 65 minutes of critical care time in the direct management of this patient. This is a life/limb threatening event. This includes time spent evaluating patient, direct bedside care, chart review, placing orders, interpretation of diagnostic studies, discussion with consultants, patient, and family members, as well as other required patient management activities. This time is exclusive of all separately billable procedures, separate from and in addition to any other critical care service time. Thank you for allowing us to participate in the care of this patient. Please refer to my attending physician's documentation for any further recommendations. History of Present Illness Reason for Consultation: Hypocarbic Hypoxic Respiratory Failure Requesting Physician: Walter Chapman MD Attending Physician: Fredy Wallace History of Present Illness 79 YOF with past medical history of : COVID Myopathy, Parkinson's Disease, RA, TIA, Electrolyte disturbances, pneumonia. Patient was initially admitted on 03/03/24 for respiratory failure and pneumonia, from [facility]. Patient was previously treated at end of January for Pneumonia at an outside facility where she completed Azithromycin and Cefdinir. Was called to bedside for respi ratory insufficiency by hospitalist service. Patient was already on BiPAP with HR 120-130s, RR 40s, Spo2 88-95. ABG was notable for Ph of 7.44, CO2, 20 HCO3 14. She has recently received a nebulizer, albumin, diamox and lasix. CTA of the chest was completed- which did not show a PE, however remains with multifocal patchy infiltrates and small effusions. As patient is showing signs of respiratory fatigue with paradoxical breathing, now increasing encephalopathy and hypoxia likely worsened by hypoventilation, decision was made to transfer patient to ICU for intubation. We will be hopeful to match her MV at this time to avoid the underlying metabolic acidosis. Continue to work through underlying causes. Primary service to notify family. CODE: FULL Allergies Allergy/AdvReac Type Severity Reaction Status Date / Time angiotensin II acetate, human Allergy Anaphylaxis Unverified 03/03/24 18:48 etanercept [From Enbrel] Allergy Anaphylaxis Unverified 03/03/24 18:48 mannitol [From Reclast] Allergy Anaphylaxis Unverified 03/03/24 18:48 olmesartan [From Benicar] Allergy Unknown Unverified 03/03/24 18:48 water for injection,sterile Allergy Anaphylaxis Unverified 03/03/24 18:48 [From Reclast] zoledronic acid Allergy Anaphylaxis Unverified 03/03/24 18:48 [From Reclast] Home Medications Medication Instructions Recorded Confirmed Type acetaminophen 325 mg tablet 650 mg PO QID PRN Pain 03/03/24 03/03/24 History acetazolamide 250 mg tablet 250 mg PO BID 03/03/24 03/03/24 History amlodipine 5 mg tablet 5 mg PO DAILY 03/03/24 03/03/24 History atorvastatin 10 mg tablet 10 mg PO HS 03/03/24 03/03/24 History baclofen 10 mg tablet 10 mg PO QID 03/03/24 03/03/24 History bisacodyl 10 mg rectal suppository 10 mg TN DAILY PRN Constipation 03/03/24 03/03/24 History brimonidine 0.2 %-timolol 0.5 % 1 drp ophthalmic (eye) BID 03/03/24 03/03/24 History eye drops carbidopa 25 mg-levodopa 100 mg 1 tab PO QID 03/03/24 03/03/24 History tablet clopidogrel 75 mg tablet 75 mg PO DAILY 03/03/24 03/03/24 History cyanocobalamin (vitamin B-12) 1,000 mcg PO DAILY 03/03/24 03/03/24 History 1,000 mcg tablet dextrose 50 % in water (D50W) 1 g IV DIRECTED PRN Other 03/03/24 03/03/24 History docusate sodium 100 mg capsule 100 mg PO BID 03/03/24 03/03/24 History dorzolamide 2 % eye drops 1 drp ophthalmic (eye) BID 03/03/24 03/03/24 History enoxaparin 40 mg/0.4 mL 40 mg subcut DAILY 03/03/24 03/03/24 History subcutaneous syringe folic acid 1 mg tablet 1 mg PO DAILY 03/03/24 03/03/24 History gabapentin 100 mg capsule 100 mg PO QAM 03/03/24 03/03/24 History gabapentin 100 mg capsule 200 mg PO HS 03/03/24 03/03/24 History latanoprost 0.005 % eye drops 1 drp ophthalmic (eye) PM 03/03/24 03/03/24 History loratadine 10 mg tablet 10 mg PO DAILY 03/03/24 03/03/24 History magnesium hydroxide 400 mg/5 mL 30 ml PO DAILY PRN Constipation 03/03/24 03/03/24 History oral suspension (Milk of Magnesia) magnesium oxide 400 mg PO BID 03/03/24 03/03/24 History ondansetron 4 mg disintegrating 4 mg PO Q4H PRN Nausea 03/03/24 03/03/24 History tablet pantoprazole 20 mg tablet,delayed 20 mg PO DAILYBB 03/03/24 03/03/24 History release piperacillin-tazobactam 4.5 gram 2.25 g IV Q6H 03/03/24 03/03/24 History intravenous solution polyethylene glycol 3350 17 gram 17 g PO DAILY PRN Constipation 03/03/24 03/03/24 History oral powder packet polymyxin B sulfate 10,000 1 drp ophthalmic (eye) Q4H 03/03/24 03/03/24 History unit-trimethoprim 1 mg/mL eye drops potassium chloride 20 mEq oral 40 meq PO QID 03/03/24 03/03/24 History packet sennosides 8.6 mg-docusate sodium 1 tab PO DAILYBL PRN Constipation 03/03/24 03/03/24 History 50 mg tablet sertraline 50 mg tablet 150 mg PO DAILY 03/03/24 03/03/24 History sodium chloride 0.9 % 0.9 ea IV CONTINOUS 03/03/24 03/03/24 History sodium chloride 0.9 % (flush) 5 ml IV Q8H 03/03/24 03/03/24 History sodium phosphates 19 gram-7 133 ml TN DAILY PRN Constipation 03/03/24 03/03/24 H istory gram/118 mL enema (Enema) teriparatide 20 mcg/dose (600 20 mcg subcut DAILY 03/03/24 03/03/24 History mcg/2.4 mL) subcutaneous pen injector ubiquinone 90 mg disintegrating 200 mg PO DAILY 03/03/24 03/03/24 History tablet vit C-vit J-pjnnpq-sdycibjh-omega 1 cap PO DAILY 03/03/24 03/03/24 History 3 100 mg-15 unit-2 mg-100 mg capsule Patient History Medical History (Updated 03/06/24 @ 05:43 by ALESIA Gooden) History of TIA (transient ischemic attack) Osteoporosis Hyponatremia Rheumatoid arthritis Glaucoma Parkinsons disease GERD (gastroesophageal reflux disease) Hyperlipidemia Hypertension Asthma Social History Smoking Status: Unknown if ever smoked Preferred Language: Cymro Communication Ability: Impaired Material Attendant Required: No Current Living Situation: Rehab Feels Safe at Home: Yes Assistive Devices: Walker Review of Systems Review of Systems: callie secondary to encephalopathy Physical Exam Physical Exam: PHYSICAL EXAM: General: awake, alert, no apparent distress Head: Normocephalic, atraumatic ENT: PERRL, EOMI, no pharyngeal exudate, mucous membranes moist Neuro: AAO x 3, speech clear and appropriate, strength intact bilaterally 5/5, sensation intact and equal all extremities and dermatomes, no pronator drift Chest: equal rise and fall of the chest, no accessory muscle use, no heaves or thrills, Clear to auscultation, on room air, Cardiac: Regular rate and rhythm, telemetry reviewed, skin warm dry, cap refill <3 seconds, peripheral pusles +2 no JVD, no murmur, no JVD, no edema GI: NABS x 4 quadrants, soft, nontender to palpation, no rebound, guarding or tenderness : Spontaneously voiding, no pain, no CVA tenderness, Extremities: Normal inspection, no peripheral edema or erythema, calfs nontender to palpation Psych: Normal mood and affect cits Skin: no rash or erythema Results & Data Results & Data Vital Signs (Past 12 Hours) Vital Signs Temp Pulse Pulse Resp BP BP Pulse Ox 03/06/24 03:19 120 H 36 H 124/89 94 03/06/24 02:52 126 H 52 H 145/85 H 88 L 03/06/24 02:45 130 H 46 H 90 03/06/24 02:44 127/72 03/06/24 02:38 37.1 C 128 H 52 H 93 03/06/24 01:21 111 H 40 H 93 03/06/24 00:25 124 H 50 H 137/102 H 93 03/06/24 00:10 36.9 C 128 H 52 H 158/100 H 95 03/05/24 23:19 156/96 H 03/05/24 23:15 38.4 C H 128 H 50 H 94 03/05/24 22:33 37.2 C 126 H 38 H 133/93 93 03/05/24 22:00 131 H 03/05/24 20:54 117 H 24 93 03/05/24 20:45 151/106 H 03/05/24 20:38 37.9 C H 122 H 38 H 93 03/05/24 20:30 37.9 C H 121 H 38 H 151/106 H 93 03/05/24 20:00 O2 Del Method O2 Flow Rate FiO2 03/06/24 03:19 BiPAP 03/06/24 02:52 BiPAP 03/06/24 02:45 100 03/06/24 02:44 03/06/24 02:38 Oxymask 15 03/06/24 01:21 Oxymask 9 03/06/24 00:25 Oxymask 9 03/06/24 00:10 Oxymask 9 03/05/24 23:19 03/05/24 23:15 Nasal Cannula 9 03/05/24 22:33 Nasal Cannula 7 03/05/24 22:00 03/05/24 20:54 Nasal Cannula 6 03/05/24 20:45 03/05/24 20:38 Nasal Cannula 4 03/05/24 20:30 Nasal Cannula 6.0 03/05/24 20:00 Oxymask 9 Laboratory Results Abnormal lab results 03/05/24 03/05/24 03/06/24 Range/Units 07:10 14:26 00:04 RBC 3.01 L (4.20-5.40) M/uL Hgb 9.4 L (12.0-16.0) g/dl POC Hgb (12.0-16.0) g/dl Hct 27.4 L (37.0-47.0) % POC Hct (37-47) % MCHC (32.0-36.0) g/dL RDW Std Deviation 46.8 H (36.4-46.3) fL RDW Coeff of Ailyn (11.5-14.5) % Plt Count 114 L (130-400) K/uL MPV (9.4-12.4) fL Neut # (Auto) 8.48 H (1.40-6.50) K/uL Lymph # (Auto) 0.82 L (1.20-3.40) K/uL Saline # (Auto) 0.09 L (0.11-0.59) K/uL POC pH (7.35-7.45) POC pCO2 (35-46) mmHg POC pO2 (80-95) mmHg POC HCO3 (19-24) samara/L POC Total CO2 (24-31) mmol/L POC Base Excess (-9-1.8) samara/L ABG pH (Temp Correct) (7.35-7.45) ABG pCO2 20 L (35-46) mmHg ABG pCO2 (Temp Corrct (35-46) mmHg ABG HCO3 14 L (19-24) mmol/L POC ABG O2 Sat (90-95) % ABG O2 Saturation 97.6 H (90-95) % VBG pH (7.36-7.41) POC Sodium (135-144) mmol/L Chloride 116 H 118 H (98-107) mmol/L Carbon Dioxide 20 L 17 L (21-32) mmol/L Creatinine 0.39 L 0.47 L (0.6-1.2) mg/dl BUN/Creatinine Ratio 41.0 H 36.2 H (10-20) Glucose 130 H 169 H (70-99(Fasting)) mg/dl Lactate (0.4-2.0) mmol/L Calcium 7.8 L 7.8 L (8.6-10.3) mg/dl Phosphorus 2.0 L D (2.5-4.9) mg/dl C-Reactive Protein (0-0.5) mg/dl Total Protein 5.4 L (6.0-8.3) gm/dl Albumin 2.7 L (3.4-5.0) gm/dl Procalcitonin (0-0.5) ng/ml Crossmatch 03/06/24 03/06/24 03/06/24 Range/Units 00:30 04:33 04:44 RBC 3.11 L 2.85 L (4.20-5.40) M/uL Hgb 9.6 L 8.8 L (12.0-16.0) g/dl POC Hgb (12.0-16.0) g/dl Hct 28.4 L 27.9 L (37.0-47.0) % POC Hct (37-47) % MCHC 31.5 L (32.0-36.0) g/dL RDW Std Deviation 52.6 H (36.4-46.3) fL RDW Coeff of Ailyn 14.7 H (11.5-14.5) % Plt Count 113 L 116 L (130-400) K/uL MPV 12.9 H (9.4-12.4) fL Neut # (Auto) 8.68 H 8.40 H (1.40-6.50) K/uL Lymph # (Auto) 0.37 L (1.20-3.40) K/uL Saline # (Auto) 0.10 L 0.09 L (0.11-0.59) K/uL POC pH (7.35-7.45) POC pCO2 (35-46) mmHg POC pO2 (80-95) mmHg POC HCO3 (19-24) samara/L POC Total CO2 (24-31) mmol/L POC Base Excess (-9-1.8) samara/L ABG pH (Temp Correct) (7.35-7.45) ABG pCO2 (35-46) mmHg ABG pCO2 (Temp Corrct (35-46) mmHg ABG HCO3 (19-24) mmol/L POC ABG O2 Sat (90-95) % ABG O2 Saturation (90-95) % VBG pH 7.18 L (7.36-7.41) POC Sodium (135-144) mmol/L Chloride 120 H (98-107) mmol/L Carbon Dioxide 15 L (21-32) mmol/L Creatinine 0.47 L (0.6-1.2) mg/dl BUN/Creatinine Ratio 40.4 H (10-20) Glucose 209 H (70-99(Fasting)) mg/dl Lactate 2.2 H* (0.4-2.0) mmol/L Calcium 7.8 L (8.6-10.3) mg/dl Phosphorus 1.1 L* (2.5-4.9) mg/dl C-Reactive Protein 27.67 H (0-0.5) mg/dl Total Protein 5.6 L (6.0-8.3) gm/dl Albumin 2.6 L (3.4-5.0) gm/dl Procalcitonin 0.51 H (0-0.5) ng/ml Crossmatch See Detail 03/06/24 Range/Units 05:27 RBC (4.20-5.40) M/uL Hgb (12.0-16.0) g/dl POC Hgb 9.2 L (12.0-16.0) g/dl Hct (37.0-47.0) % POC Hct 27 L (37-47) % MCHC (32.0-36.0) g/dL RDW Std Deviation (36.4-46.3) fL RDW Coeff of Ailyn (11.5-14.5) % Plt Count (130-400) K/uL MPV (9.4-12.4) fL Neut # (Auto) (1.40-6.50) K/uL Lymph # (Auto) (1.20-3.40) K/uL Saline # (Auto) (0.11-0.59) K/uL POC pH 7.16 L* (7.35-7.45) POC pCO2 48 H (35-46) mmHg POC pO2 244 H (80-95) mmHg POC HCO3 17 L (19-24) samara/L POC Total CO2 18 L (24-31) mmol/L POC Base Excess -12.0 L (-9-1.8) samara/L ABG pH (Temp Correct) 7.139 L* (7.35-7.45) ABG pCO2 (35-46) mmHg ABG pCO2 (Temp Corrct 51 H (35-46) mmHg ABG HCO3 (19-24) mmol/L POC ABG O2 Sat 100.0 H (90-95) % ABG O2 Saturation (90-95) % VBG pH (7.36-7.41) POC Sodium 148 H (135-144) mmol/L Chloride (98-107) mmol/L Carbon Dioxide (21-32) mmol/L Creatinine (0.6-1.2) mg/dl BUN/Creatinine Ratio (10-20) Glucose (70-99(Fasting)) mg/dl Lactate (0.4-2.0) mmol/L Calcium (8.6-10.3) mg/dl Phosphorus (2.5-4.9) mg/dl C-Reactive Protein (0-0.5) mg/dl Total Protein (6.0-8.3) gm/dl Albumin (3.4-5.0) gm/dl Procalcitonin (0-0.5) ng/ml Crossmatch Diagnostic Findings Chest X-Ray 03/04/24 21:37 XR chest 1V portable CLINICAL HISTORY: Increase O2 demand TECHNIQUE: Single frontal radiograph of the chest was obtained. Comparison: Comparison is made to chest radiograph 03/03/2024 FINDINGS: Enteric tube is partially visualized. Calcified aortic knob is seen. Airspace opacities are visible in the right midlung. Interstitial thickening is seen. No evidence of pleural effusion or pneumothorax. IMPRESSION: Scattered airspace opacities are increased in conspicuity from prior exam marcel tible with pneumonia/aspiration. ACT 112: Negative or not required by law. Electronically signed by: Chris Murphy M.D. 03/05/2024 7:50 AM Chest CTA 03/06/24 00:37 Exam(s): CTA CHEST IV Amt: 119 ml opti 320 EXAM: CT Angiography Chest With Intravenous Contrast CLINICAL HISTORY: Reason for exam: PE r/o, known R aspiration. TECHNIQUE: Axial computed tomographic angiography images of the chest with intravenous contrast. CTDI is 23.56 mGy and DLP is 695.9 mGy-cm. Automated exposure control was utilized for the study. A dose lowering technique was utilized adhering to the principles of ALARA. MIP reconstructed images were created and reviewed. COMPARISON: No relevant prior studies available. FINDINGS: Pulmonary arteries: Unremarkable. No pulmonary embolism. Aorta: No acute findings. No thoracic aortic aneurysm. Lungs: Patchy bilateral airspace consolidations, consistent with severe multilobar pneumonia. Small bilateral parapneumonic effusions. Pleural space: Unremarkable. No significant effusion. No pneumothorax. Heart: Unremarkable. No cardiomegaly. No significant pericardial effusion. No evidence of RV dysfunction. Bones/joints: No acute fracture. No dislocation. Soft tissues: Unremarkable. Lymph nodes: Unremarkable. No enlarged lymph nodes. Tubes, lines and devices: Feeding tube terminates in the stomach. IMPRESSION: 1. No pulmonary embolism. 2. Patchy bilateral airspace consolidations, consistent with severe multilobar pneumonia. Small bilateral parapneumonic effusions. 3. Feeding tube terminates in the stomach. Electronically signed by: Vincent Kaplan MD 03/06/24 03:04 AM Medications Administered Home Medications acetaminophen 325 mg tablet 650 mg PO QID PRN Pain 03/03/24 [History Confirmed 03/03/24] acetazolamide 250 mg tablet 250 mg PO BID 03/03/24 [History Confirmed 03/03/24] amlodipine 5 mg tablet 5 mg PO DAILY 03/03/24 [History Confirmed 03/03/24] atorvastatin 10 mg tablet 10 mg PO HS 03/03/24 [History Confirmed 03/03/24] baclofen 10 mg tablet 10 mg PO QID 03/03/24 [History Confirmed 03/03/24] bisacodyl 10 mg rectal suppository 10 mg TN DAILY PRN Constipation 03/03/24 [History Confirmed 03/03/24] brimonidine 0.2 %-timolol 0.5 % eye drops 1 drp ophthalmic (eye) BID 03/03/24 [History Confirmed 03/03/24] carbidopa 25 mg-levodopa 100 mg tablet 1 tab PO QID 03/03/24 [History Confirmed 03/03/24] clopidogrel 75 mg tablet 75 mg PO DAILY 03/03/24 [History Confirmed 03/03/24] cyanocobalamin (vitamin B-12) 1,000 mcg tablet 1,000 mcg PO DAILY 03/03/24 [History Confirmed 03/03/24] dextrose 50 % in water (D50W) 1 g IV DIRECTED PRN Other 03/03/24 [History Confirmed 03/03/24] docusate sodium 100 mg capsule 100 mg PO BID 03/03/24 [History Confirmed 03/03/24] dorzolamide 2 % eye drops 1 drp ophthalmic (eye) BID 03/03/24 [History Confirmed 03/03/24] enoxaparin 40 mg/0.4 mL subcutaneous syringe 40 mg subcut DAILY 03/03/24 [History Confirmed 03/03/24] folic acid 1 mg tablet 1 mg PO DAILY 03/03/24 [History Confirmed 03/03/24] gabapentin 100 mg capsule 100 mg PO QAM 03/03/24 [History Confirmed 03/03/24] gabapentin 100 mg capsule 200 mg PO HS 03/03/24 [History Confirmed 03/03/24] latanoprost 0.005 % eye drops 1 drp ophthalmic (eye) PM 03/03/24 [History Confirmed 03/03/24] loratadine 10 mg tablet 10 mg PO DAILY 03/03/24 [History Confirmed 03/03/24] magnesium hydroxide 400 mg/5 mL oral suspension (Milk of Magnesia) 30 ml PO DAILY PRN Constipation 03/03/24 [History Confirmed 03/03/24] magnesium oxide 400 mg PO BID 03/03/24 [History Confirmed 03/03/24] ondansetron 4 mg disintegrating tablet 4 mg PO Q4H PRN Nausea 03/03/24 [History Confirmed 03/03/24] pantoprazole 20 mg tablet,delayed release 20 mg PO DAILYBB 03/03/24 [History Confirmed 03/03/24] piperacillin-tazobactam 4.5 gram intravenous solution 2.25 g IV Q6H 03/03/24 [History Confirmed 03/03/24] polyethylene glycol 3350 17 gram oral powder packet 17 g PO DAILY PRN Constipation 03/03/24 [History Confirmed 03/03/24] polymyxin B sulfate 10,000 unit-trimethoprim 1 mg/mL eye drops 1 drp ophthalmic (eye) Q4H 03/03/24 [History Confirmed 03/03/24] potassium chloride 20 mEq oral packet 40 meq PO QID 03/03/24 [History Confirmed 03/03/24] sennosides 8.6 mg-docusate sodium 50 mg tablet 1 tab PO DAILYBL PRN Constipation 03/03/24 [History Confirmed 03/03/24] sertraline 50 mg tablet 150 mg PO DAILY 03/03/24 [History Confirmed 03/03/24] sodium chloride 0.9 % 0.9 ea IV CONTINOUS 03/03/24 [History Confirmed 03/03/24] sodium chloride 0.9 % (flush) 5 ml IV Q8H 03/03/24 [History Confirmed 03/03/24] sodium phosphates 19 gram-7 gram/118 mL enema (Enema) 133 ml TN DAILY PRN Constipation 03/03/24 [History Confirmed 03/03/24] teriparatide 20 mcg/dose (600 mcg/2.4 mL) subcutaneous pen injector 20 mcg subcut DAILY 03/03/24 [History Confirmed 03/03/24] ubiquinone 90 mg disintegrating tablet 200 mg PO DAILY 03/03/24 [History Confirmed 03/03/24] vit C-vit J-qezsad-wpjuwitc-omega 3 100 mg-15 unit-2 mg-100 mg capsule 1 cap PO DAILY 03/03/24 [History Confirmed 03/03/24] Active Medications Acetaminophen (Acetaminophen 500 Mg Tab) 1,000 mg PO Q8H PRN PRN Reason: Pain or Fever Stop: 04/03/24 20:25 Last Admin: 03/05/24 21:21 Dose: 1,000 mg Carbidopa/Levodopa (Carbidopa/Levodopa 25/100mg Tab) 1 tab NG QID MICHAEL Stop: 04/02/24 20:59 Last Admin: 03/05/24 21:31 Dose: 1 tab Clopidogrel Bisulfate (Clopidogrel Bisulfate 75 Mg Tab) 75 mg NG DAILY MICHAEL Stop: 04/03/24 08:59 Last Admin: 03/05/24 08:35 Dose: 75 mg Docusate Sodium (Docusate Sodium Syrup 100 Mg/10 Ml Udc) 100 mg NG BID MICHAEL Stop: 04/02/24 20:59 Last Admin: 03/05/24 21:31 Dose: Not Given Dorzolamide HCl (Dorzolamide Hcl 2% Oph Soln 10 Ml Btl) 1 drops OP BID MICHAEL Stop: 04/02/24 20:59 Last Admin: 03/05/24 21:56 Dose: 1 drops Enoxaparin Sodium (Enoxaparin Inj 40 Mg/0.4 Ml Syr) 40 mg SQ QPM MICHAEL Stop: 04/02/24 21:59 Last Admin: 03/05/24 21:56 Dose: 40 mg Fentanyl Citrate (Fentanyl Citrate Pf 100 Mcg/2 Ml Vial) 50 mcg IV Q2H PRN PRN Reason: Moderate Pain (4,5,6) on NRS Stop: 03/20/24 04:43 Folic Acid (Folic Acid 1 Mg Tab) 1 mg PO DAILY MICHAEL Stop: 04/03/24 08:59 Last Admin: 03/05/24 08:37 Dose: 1 mg Piperacillin Sod/Tazobactam Sod (Zosyn) 4.5 gm in 100 mls @ 25 mls/hr IV Q8H [facility]; Protocol Stop: 03/10/24 19:59 Last Admin: 03/06/24 05:34 Dose: 25 mls/hr Azithromycin 250 mg/ Dextrose 252.5 mls @ 125 mls/hr IV Q24H MICHAEL Stop: 03/06/24 19:14 Last Infusion: 03/05/24 22:46 Dose: Infused Thiamine HCl 200 mg/ Sodium (Chloride) 52 mls @ 210 mls/hr IV QAM MICHAEL Stop: 04/03/24 10:14 Last Infusion: 03/05/24 08:53 Dose: Infused Vancomycin HCl 1,250 mg/ (Sodium Chloride) 275 mls @ 200 mls/hr IV Q12H [facility] Stop: 03/12/24 20:59 Last Infusion: 03/05/24 23:14 Dose: Infused Sodium Phosphate 45 mmol/ (Sodium Chloride) 1,015 mls @ 135 mls/hr IV 0200 ONE Stop: 03/06/24 09:31 Last Admin: 03/06/24 02:12 Dose: 135 mls/hr Propofol (Diprivan) 1,000 mg in 100 mls @ 8.22 mls/hr IV .[id number] MICHAEL; Protocol Stop: 03/09/24 04:44 Last Titration: 03/06/24 05:38 Dose: 30 mcg/kg/min, 12.3 mls/hr Lansoprazole (Lansoprazole 30 Mg Soltab) 30 mg NG DAILYBB [facility] Stop: 04/03/24 06:29 Last Admin: 03/05/24 04:35 Dose: 30 mg Latanoprost (Latanoprost 0.005% Op Soln 2.5 Ml Btl) 1 drops OP PM MICHAEL Stop: 04/02/24 20:59 Last Admin: 03/05/24 21:56 Dose: 1 drops Loratadine (Loratadine 10 Mg Tab) 10 mg NG DAILY MICHAEL Stop: 04/03/24 08:59 Last Admin: 03/05/24 08:37 Dose: 10 mg Magnesium Oxide (Magnesium Oxide 400 Mg Tab) 400 mg NG BID [facility] Stop: 04/02/24 20:59 Last Admin: 03/05/24 21:51 Dose: 400 mg Miscellaneous (Brimonidine-Timolol 0.2-0.5 % Drops Order Awaiting Action) 1 each N/A QS [facility] Stop: 04/03/24 00:00 Last Admin: 03/06/24 00:39 Dose: Not Given Miscellaneous (Order Awaiting Action: Teriparatide) 1 each N/A QS [facility] Stop: 04/04/24 09:29 Last Admin: 03/06/24 00:39 Dose: Not Given Miscellaneous Information (Vancomycin Consult Active) 1 each N/A UD PRN PRN Reason: Consult Stop: 04/04/24 11:34 Polymyxin/Trimethoprim Sulfate (Trimethoprim/Polymyxin B) 1 drops OP QID MICHAEL Stop: 04/03/24 08:59 Last Admin: 03/05/24 21:55 Dose: 1 drops Potassium Chloride (Potassium Chloride Pwd 20 Meq Pack) 40 meq NG QID [facility] Stop: 04/02/24 20:59 Last Admin: 03/05/24 21:51 Dose: 40 meq Propofol (Propofol Bolus From Bag) 20 mg IV Q5M PRN PRN Reason: Sedation Stop: 03/09/24 04:43 Sertraline HCl (Sertraline Hcl 50 Mg Tablet) 150 mg PEG DAILY [facility] Stop: 04/03/24 08:59 Last Admin: 03/05/24 08:35 Dose: 150 mg Sodium Chloride (Sodium Chlor 7% 4 Ml Neb) 4 ml NEB BIDR [facility] Stop: 04/02/24 22:24 Last Admin: 03/05/24 20:54 Dose: 4 ml Coding Level of Care Code 30545 CRITICAL CARE 1ST 30-74M Diagnoses Metabolic encephalopathy G93.41 Respiratory failure J96.90 Respiratory alkalosis E87.3 Metabolic acidosis E87.20 Pneumonia J18.9 Laterality: bilateral Lung location: unspecified part of lung Pneumonia type: due to unspecified organism Severe acute respiratory syndrome coronavirus 2 (SARS-CoV-2) RNA test result positive at limit of detection U07.1 Electrolyte disturbance E87.8 (5) Pneumonia Laterality: bilateral Lung location: unspecified part of lung Pneumonia type: due to unspecified organism Qualified Code(s): J18.9 - Pneumonia, unspecified organism
[2024-03-06] MEDS ORDERED: STAT IV Infusion **Titration per Protocol STA (04:44)
[2024-03-06] MEDS ORDERED: PROPOFOL BOLUS FROM BAG IV PRN (04:44)
--- NOTE | 2024-03-06 04:44 | Procedure Note ---
Procedure Note Date of Service March 06, 2024 INTUBATION PROCEDURE NOTE: Proceduralist: Franklin DUMAS ([facility]-) Attending: Dr. Freed Sedation/paralytics: Dr. Valenzuela A time-out was completed verifying correct patient, procedure, site, positioning. Patient was evaluated and required intubation for Hypocarbic Hypoxic Respiratory failure Sedative agent used: Etomidate 20mg Paralysis agent used: Rocuronium 40mg Emergent consent was implied given patients rapidly declining clinical status and need for airway protection. The patient was prepared in the appropriate fashion, she was being pre- oxygenated with BiPAP 100% FIo2. Sedation was achieved utilizing Etomidate and Rocuronium, per Dr. Valenzuela's Direction. The patient was easily ventilated using NIPPV with back up rate and 100% oxygen. Once desired effects of medications were observed, a S3 blade was introduced into the airway, following a grade I view, A 7.5 [place] endotracheal tube was placed under direct video laryngoscopy at 23 cm at the lip. The stylette was removed and balloon was inflated with 10mL of air. Appropriate Colorimetric change was appreciated. Bilateral breath sounds were heard without air sounds in the abdomen. Dr. Valenzuela was present for the entire procedure. Post Intubation Chest X-ray confirms placement without pneumothorax. Patient tolerated the procedure well and there were no immediate complications. [facility] [place] Codes (Charges) Resuscitation Resuscitation: 81764 Endotracheal Intubation, emergency Coding CPT Codes Resuscitation - Resuscitation: 17794 Endotracheal Intubation, emergency ([id number]) Additional Codes Date of Service (PG.SURGERY)
--- NOTE | 2024-03-06 04:44 | Procedure Note ---
Procedure Note Date of Service March 06, 2024 ARTERIAL LINE PROCEDURE NOTE: Procedure: Arterial Line Placement Proceduralist: Franklin DUMAS ([facility]-) Attending: Dr. Freed Indication: Monitoring on Pressors Anesthesia: [x]Lidocaine 1% Emergent Consent was implied as patient is a full code requiring intubation and mechanical ventilation, she is in need of frequent blood draws and hemodynamic monitoring, benefits greatly outweigh risks at this time. A time-out was completed verifying correct patient, procedure, site, positioning. Allens test was performed to ensure adequate perfusion. Ultrasound guidance was used to operating room surgical technician the vessel and once adequate target identified, the Patients LEFT wrist was prepped and draped in the usual sterile fashion. Ultrasound was then used to aid needle placement, under direct visualization, a 20g Arrow arterial line was introduced into the LEFT RADIAL artery. Brisk blood return was noted and the wire was advanced without resistance, the catheter was then threaded, and the needle was removed with appropriate blood return. Pressure tubing was attached noting a good arterial waveform. The patient tolerated the procedure well. The line was sutured in place and covered with sterile dressing. Blood Loss: Minimal Complications: None Artery Identified: YES Complications: NONE Patient tolerated procedure: [facility]LL [facility] [place] Procedure Codes (Charges) Tubes, Drains, and Vasc Access Procedure 1: Tubes, Drains, and Vasc Access: [id number] Arterial Cath/Cannulation Sampling/Monitoring/Transfusion Coding CPT Codes Tubes, Drains, and Vasc Access - Tubes, Drains, and Vasc Access: [id number] Arterial Cath/Cannulation Sampling/Monitoring/Transfusion ([id number]) Additional Codes Date of Service (PG.SURGERY)
[2024-03-06 04:49] LABS: HCO3 VBG 16 mmol/L; Oxygen Saturation VBG < 60.0 %; PCO2 VBG 43 mmHg (38-50); PO2 VBG 39 mmHg; pH VBG 7.18 (7.36-7.41)
--- NOTE | 2024-03-06 04:49 | Communication Note ---
Date of Service: March 06, 2024 Patient ultimately required BiPAP and subsequent intubation to support oxygenation as she was becoming fatigued a/w tachypnea. Patient transferred to ICU. Called and spoke to , Bandar, and provided update. He noted that he travels 3 hours from [place] and that he may not be able to come in today due to the long drive. Preferred contact number [phone] in case of emergency or status change.
[2024-03-06 05:15] LABS: Hematocrit (blood only) 27.9 % (37.0-47.0); Hemoglobin 8.8 g/dl (12.0-16.0); Mean Corpuscular Hemoglobin 30.9 pg (25.0-34.0); Mean Corpuscular Hgb Conc 31.5 g/dL (32.0-36.0); Mean Corpuscular Volume 97.9 fL (80.0-100.0); Mean Platelet Volume 12.9 fL (9.4-12.4); Platelet Count 116 K/uL (130-400); RDW Coefficient of Variation 14.7 % (11.5-14.5); RDW Standard Deviation 52.6 fL (36.4-46.3); Red Blood Count 2.85 M/uL (4.20-5.40); White Blood Count 9.77 K/ul (4.8-10.8)
[2024-03-06 05:16] LABS: Basophils # (auto) 0.01 K/uL (0.00-0.20); Basophils % (auto) 0.1 %; Immature Granulocytes # (auto) 0.07 K/uL (0.01-0.20); Immature Granulocytes % (auto) 0.7 %; Lymphocytes % (auto) 12.3 %; Monocytes # (auto) 0.09 K/uL (0.11-0.59); Monocytes % (auto) 0.9 %; Poikilocytosis Present; Polychromasia 1+
[2024-03-06] MEDS: propofoL 1,000 MG/100 ML VIAL IV SCH (05:23)
[2024-03-06] MEDS: FUROSEMIDE INJ 20 MG/2 ML VIAL IV ONE (05:26)
[2024-03-06] MEDS: PROPOFOL IV EMULSION 10 MG/ML 100 ML VIAL IV ONE (05:28)
[2024-03-06] MEDS: SODIUM BICARB 8.4% INJ 50 MEQ/50 ML SYR IV ONE (05:33)
[2024-03-06 05:39] LABS: iSTAT Art Bld Gas pCO2 Correct 51 mmHg (35-46); iSTAT Art Bld Gas pH Corrected 7.139 (7.35-7.45); iSTAT Arterial Blood Gas HCO3 17 meg/L (19-24); iSTAT Arterial Blood Gas pCO2 48 mmHg (35-46); iSTAT Arterial Blood Gas pH 7.16 (7.35-7.45); iSTAT Arterial Blood Gas pO2 244 mmHg (80-95); iSTAT Arterial Blood Gas pO2 C 253; iSTAT Carbon Dioxide 18 mmol/L (24-31); iSTAT FiO2 100 %; iSTAT Hematocrit 27 % (37-47); iSTAT Hemoglobin 9.2 g/dl (12.0-16.0); iSTAT Potassium 4.6 mmol/L (3.3-5.0); iSTAT Site Art Line; iSTAT Sodium 148 mmol/L (135-144)
[2024-03-06 05:46] LABS: Alanine Aminotransferase 19 U/L (7-52); Albumin Globulin Ratio 1.2 (0.9-2); Albumin Level 3.3 gm/dl (3.4-5.0); Alkaline Phosphatase 79 U/L (34-104); Bilirubin,Total 0.7 mg/dl (0.2-1.0); Blood Urea Nitrogen 20 mg/dl (6-23); Calcium 7.7 mg/dl (8.6-10.3); Carbon Dioxide 15 mmol/L (21-32); Chloride 118 mmol/L (98-107); Creatinine Clr Calc Pharmacy 89.6 ml/min; Globulin 2.8 gm/dl (2.5-4.0); Glucose 152 mg/dl (70-99(Fasting)); Phosphorus 3.7 mg/dl (2.5-4.9); Total Protein 6.1 gm/dl (6.0-8.3)
[2024-03-06] MEDS: SODIUM BICARB 8.4% INJ 50 MEQ/50 ML SYR IV STA (05:48)
[2024-03-06] MEDS ORDERED: RAPID SEQUENCE INDUCTION BAG PRN (06:02)
--- NOTE | 2024-03-06 06:25 | Hospitalist Progress Note ---
Date of Service March 05, 2024 Assessment & Plan (1) Acute respiratory failure with hypoxia: Plan: Suspected aspiration with dysphagia secondary to refeeding syndrome/recent COVID and Parkison's No hypercapnia on VBG Appears she was initially doing better at [facility] with eating and drinking more but then became suddenly a lot worse especially after drinking ensure this morning suggestive of new aspiration Electrolytes are being replenished. Patient developed more fevers on 11/03, Added vancomycin, repeated cultures due to tacycardia and fever. (2) Pneumonia: Plan: Suspected aspiration, procalcitonin negative IV Zosyn + azithromycin Can discontinue vancomycin if MRSA nasal swab negative (3) Severe acute respiratory syndrome coronavirus 2 (SARS-CoV-2) RNA test result positive at limit of detection: Plan: Initially tested positive on February 12, not suspicious of new infection She does not need isolation but should be in a single room (4) Hypokalemia: Plan: Suspect most likely due to refeeding syndrome/ perhaps may be due to acet azolamide - I am unclear why she is on this medication but suspect most likely glaucoma Will discontinue acetazolamide Continue to aggressively replenish electrolytes L (5) Hypernatremia: Plan: Appears clinically very dry. After initial fluids will place on D5W half NSS and recheck (6) Oropharyngeal dysphagia: Plan: Strict NPO, plan on Corsafe once initially rehydrated (7) Elevated troponin I level: Plan: Suspected demand ischemia, continue to trend (8) Metabolic encephalopathy: Plan: Stop all sedating medications - baclofen, gabapentin Correct electrolytes (9) Rheumatoid arthritis: Plan: On no medications listed for this (10) Parkinsons disease: Plan: After initial fluid resuscitation plan on restarting Sinemet via Corsafe (11) Osteoporosis: Plan: Holding Forteo at time of admission (12) GERD (gastroesophageal reflux disease): Plan: Continue pantoprazole (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 Physical Exam Constitutional: + ill appearing Eyes: PERRL, conjunctivae normal, anicteric sclerae Neck: trachea midline, no thyromegaly Respiratory: normal respiratory effort Cardiovascular: RRR, no murmur, no edema Gastrointestinal (Abdomen): normal bowel sounds, soft, nontender, no hepatosplenomegaly Skin: no rashes, warm and dry Neurologic: moves all extremities (not to direction), awake (to voice but non verbal) and + confused Psychiatric: Orientation: + not oriented x 3 Genitourinary: no CVA tenderness Results & Data Results & Data Vital Signs (Past 12 Hours) Vital Signs Temp Pulse Pulse Resp BP BP Pulse Ox 03/06/24 05:27 28 H 03/06/24 04:44 119 H 28 H 99 03/06/24 03:19 120 H 36 H 124/89 94 03/06/24 02:52 126 H 52 H 145/85 H 88 L 03/06/24 02:45 130 H 46 H 90 03/06/24 02:44 127/72 03/06/24 02:38 37.1 C 128 H 52 H 93 03/06/24 01:21 111 H 40 H 93 03/06/24 00:25 124 H 50 H 137/102 H 93 03/06/24 00:10 36.9 C 128 H 52 H 158/100 H 95 03/05/24 23:19 156/96 H 03/05/24 23:15 38.4 C H 128 H 50 H 94 03/05/24 22:33 37.2 C 126 H 38 H 133/93 93 03/05/24 22:00 131 H 03/05/24 20:54 117 H 24 93 03/05/24 20:45 151/106 H 03/05/24 20:38 37.9 C H 122 H 38 H 93 03/05/24 20:30 37.9 C H 121 H 38 H 151/106 H 93 03/05/24 20:00 O2 Del Method O2 Flow Rate FiO2 03/06/24 05:27 60 03/06/24 04:44 100 03/06/24 03:19 BiPAP 03/06/24 02:52 BiPAP 03/06/24 02:45 100 03/06/24 02:44 03/06/24 02:38 Oxymask 15 03/06/24 01:21 Oxymask 9 03/06/24 00:25 Oxymask 9 03/06/24 00:10 Oxymask 9 03/05/24 23:19 03/05/24 23:15 Nasal Cannula 9 03/05/24 22:33 Nasal Cannula 7 03/05/24 22:00 03/05/24 20:54 Nasal Cannula 6 03/05/24 20:45 03/05/24 20:38 Nasal Cannula 4 03/05/24 20:30 Nasal Cannula 6.0 03/05/24 20:00 Oxymask 9 PG Care Time/CCT Total # of Minutes Spent Total Time Spent with Patient: Total time spent is greater than 50% in coordination of care (as documented) at patient's floor/unit and/or counseling patient: Coding Level of Care Code 64969 SUB INP/OBS CARE 3/50MIN Diagnoses Acute respiratory failure with hypoxia J96.01 Pneumonia J18.9 Laterality: bilateral Lung location: unspecified part of lung Pneumonia type: due to unspecified organism Severe acute respiratory syndrome coronavirus 2 (SARS-CoV-2) RNA test result positive at limit of detection U07.1 Hypokalemia E87.6 Hypernatremia E87.0 Oropharyngeal dysphagia R13.12 Elevated troponin I level R79.89 Metabolic encephalopathy G93.41 Rheumatoid arthritis M06.9 Parkinsons disease G20.A1 Osteoporosis M81.0 GERD (gastroesophageal reflux disease) K21.9 Myopathy G72.9 History of TIA (transient ischemic attack) Z86.73 (2) Pneumonia Laterality: bilateral Lung location: unspecified part of lung Pneumonia type: due to unspecified organism Qualified Code(s): J18.9 - Pneumonia, unspecified organism
[2024-03-06 06:26] LABS: Appearance Urine Cloudy (Clear); Bacteria Urine Automated None Seen (None Seen); Bilirubin Urine Negative (Negative); Blood Urine Negative (Negative); Color Urine Yellow; Glucose Urine UA Trace (Negative); Ketones Urine Trace (Negative); Leukocyte Esterase Urine Negative (Negative); Nitrite Urine Negative (Negative); Protein Urine 2+ (Negative); Specific Gravity Urine 1.041 (1.000-1.030); Urobilinogen Urine Negative (Negative); WBC Urine Automated 0-5 /hpf (0-5); pH Urine 5.5 (4.5-7.5)
[2024-03-06 06:28] LABS: Potassium 4.2 mmol/L (3.5-5.1)
[2024-03-06 06:30] LABS: iSTAT Art Bld Gas pCO2 Correct 38 mmHg (35-46); iSTAT Arterial Blood Gas HCO3 18 meg/L (19-24); iSTAT Arterial Blood Gas pCO2 36 mmHg (35-46); iSTAT Arterial Blood Gas pO2 120 mmHg (80-95); iSTAT Arterial Blood Gas pO2 C 128; iSTAT Carbon Dioxide 19 mmol/L (24-31); iSTAT FiO2 60 %; iSTAT Hematocrit 25 % (37-47); iSTAT Hemoglobin 8.5 g/dl (12.0-16.0); iSTAT Site Art Line; iSTAT Sodium 149 mmol/L (135-144)
--- NOTE | 2024-03-06 06:50 | XRay Report ---
XR chest 1V portable HISTORY: 79 years-old Female increased O2 demand COMPARISON: CTA chest 03/06/2024 TECHNIQUE: AP view of the chest FINDINGS: Enteric tube course into the stomach with distal tip outside the [id number]. Small pleural effusio ns. No pneumothorax. Multilobar distribution bilateral mixed interstitial and alveolar opacities, rig ht greater than left. Heart is upper limits of normal in size. Degenerative changes of the shoulders and spine. Mild right hemidiaphragmatic elevation. IMPRESSION: 1. Right greater than left mixed interstitial and alveolar opacities may represent asymmetric pulmona ry edema versus multifocal pneumonia. 2. Small pleural effusions. ACT 112: Negative or not required by law. The above report was generated using voice recognition software. It may contain grammatical, syntax o r spelling errors. Electronically signed by: Adalid Luz M.D. 03/06/2024 6:48 AM
--- NOTE | 2024-03-06 07:01 | XRay Report ---
XR chest 1V portable CLINICAL HISTORY: tube placement TECHNIQUE: Single frontal radiograph of the chest was obtained. Comparison: Comparison is made to chest radiograph 03/05/2024 FINDINGS: Endotracheal tube terminates 2.6 cm in the jazmin. Enteric tube terminates below the diaphragm. The c ardiomediastinal silhouette is normal. Multifocal airspace opacities are similar in extent to prior e xam. Small left pleural effusion cannot be excluded. IMPRESSION: Multifocal airspace opacities may represent atelectasis, pneumonia, and/or aspiration. ACT 112: Negative or not required by law. Electronically signed by: Chris Murphy M.D. 03/06/2024 7:00 AM
[2024-03-06 07:56] LABS: Acanthocytes 1+
[2024-03-06] MEDS: ACETAMINOPHEN 1,000 MG/100 ML VIAL IV PRN (08:40)
[2024-03-06] MEDS: ICU Protocol for HYPERglycemia SCH (08:42)
--- NOTE | 2024-03-06 09:17 | Hospitalist Progress Note ---
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 secondary to parkinsons disease was on TF (2) Metabolic encephalopathy: Plan: secondary to infection, Stop all sedating medications - baclofen, gabapentin Correct electrolytes thiamine given (3) Elevated troponin I level: Plan: Suspected demand ischemia, continue to trend Echo 03/06 without RWMA (4) Severe acute respiratory syndrome coronavirus 2 (SARS-CoV-2) RNA test result positive at limit of detection: Plan: Initially tested positive on February 12, not suspicious of new infection (5) Parkinsons disease: Plan: After initial fluid resuscitation plan on restarting Sinemet via Corsafe (6) Hypernatremia: Plan: Appears clinically very dry. After initial fluids will place on D5W half NSS and recheck Plan VTE Prophylaxis - Lovenox 40mg SQ daily GERD on pantoprozole Osteoporosis, on forteo on hold Diet - strict NPO Admission and Anticipated Discharge Date Admission Date: March 03, 2024 Subjective intubated and sedated Physical Exam Physical Exam: Resting comfortably ventilating easily Card exam is regular no defined loud murmurs Abdomen is soft nontender tube feeds are running Results & Data Results & Data Vital Signs (Past 12 Hours) Vital Signs Temp Pulse Pulse Resp BP BP BP 03/06/24 09:00 100.0 F H 94 H 23 03/06/24 09:00 149/80 H 03/06/24 09:00 149/80 H 03/06/24 08:39 100.2 F H 118 H 20 03/06/24 08:30 137/75 03/06/24 08:30 137/75 03/06/24 08:30 137/75 03/06/24 08:24 100.2 F H 96 H 28 H 03/06/24 08:03 100.4 F H 95 H 28 H 03/06/24 08:00 131/78 03/06/24 08:00 131/78 03/06/24 08:00 94 H 149/80 H 03/06/24 07:51 100.4 F H 97 H 28 H 03/06/24 07:30 100.2 F H 94 H 28 H 03/06/24 07:30 135/72 03/06/24 07:30 135/72 03/06/24 07:10 118/64 03/06/24 07:10 118/64 03/06/24 07:10 118/64 03/06/24 07:06 100.2 F H 96 H 28 H 03/06/24 07:03 100.2 F H 96 H 28 H 03/06/24 07:00 138/71 03/06/24 06:32 03/06/24 06:24 100.6 F H 108 H 19 03/06/24 06:15 107/58 L 03/06/24 06:15 107/58 L 03/06/24 06:15 100.9 F H 102 H 28 H 03/06/24 05:54 100.0 F H 113 H 28 H 03/06/24 05:45 99.5 F 119 H 28 H 03/06/24 05:33 101.7 F H 124 H 28 H 03/06/24 05:27 101.7 F H 134 H 28 H 03/06/24 05:27 28 H 03/06/24 05:15 134 H 28 H 03/06/24 04:57 28 H 03/06/24 04:55 134/75 03/06/24 04:55 134/75 03/06/24 04:55 134/75 03/06/24 04:45 135 H 28 H 03/06/24 04:44 119 H 28 H 03/06/24 04:42 136 H 28 H 03/06/24 04:39 137 H 28 H 03/06/24 04:35 141/90 H 03/06/24 04:25 122/93 03/06/24 04:25 122/93 03/06/24 04:20 134/86 03/06/24 04:18 135 H 18 03/06/24 04:03 134 H 42 H 03/06/24 03:51 150 H 46 H 03/06/24 03:42 03/06/24 03:33 120 H 43 H 03/06/24 03:19 120 H 36 H 124/89 03/06/24 03:18 121 H 40 H 03/06/24 02:52 126 H 52 H 145/85 H 03/06/24 02:45 130 H 46 H 03/06/24 02:44 127/72 03/06/24 02:38 98.8 F 128 H 52 H 03/06/24 02:21 116 H 39 H 03/06/24 02:18 114 H 32 H 03/06/24 01:21 111 H 40 H 03/06/24 00:25 124 H 50 H 137/102 H 03/06/24 00:10 98.4 F 128 H 52 H 158/100 H 03/05/24 23:19 156/96 H 03/05/24 23:15 101.1 F H 128 H 50 H 03/05/24 22:33 99.0 F 126 H 38 H 133/93 03/05/24 22:00 131 H Pulse Ox O2 Del Method O2 Flow Rate FiO2 03/06/24 09:00 94 Mechanical Vent 45 03/06/24 09:00 03/06/24 09:00 03/06/24 08:39 94 Mechanical Vent 45 03/06/24 08:30 03/06/24 08:30 03/06/24 08:30 03/06/24 08:24 94 Mechanical Vent 45 03/06/24 08:03 95 Mechanical Vent 45 03/06/24 08:00 03/06/24 08:00 03/06/24 08:00 03/06/24 07:51 96 Mechanical Vent 45 03/06/24 07:30 95 Mechanical Vent 45 03/06/24 07:30 03/06/24 07:30 03/06/24 07:10 03/06/24 07:10 03/06/24 07:10 03/06/24 07:06 94 03/06/24 07:03 93 Mechanical Vent 45 03/06/24 07:00 03/06/24 06:32 45 03/06/24 06:24 98 03/06/24 06:15 03/06/24 06:15 03/06/24 06:15 98 03/06/24 05:54 95 03/06/24 05:45 94 03/06/24 05:33 97 03/06/24 05:27 99 03/06/24 05:27 60 03/06/24 05:15 03/06/24 04:57 03/06/24 04:55 03/06/24 04:55 03/06/24 04:55 03/06/24 04:45 97 03/06/24 04:44 99 100 03/06/24 04:42 98 03/06/24 04:39 98 03/06/24 04:35 03/06/24 04:25 03/06/24 04:25 03/06/24 04:20 03/06/24 04:18 91 03/06/24 04:03 94 03/06/24 03:51 83 L 03/06/24 03:42 92 03/06/24 03:33 99 03/06/24 03:19 94 BiPAP 03/06/24 03:18 98 03/06/24 02:52 88 L BiPAP 03/06/24 02:45 90 100 03/06/24 02:44 03/06/24 02:38 93 Oxymask 15 03/06/24 02:21 03/06/24 02:18 03/06/24 01:21 93 Oxymask 9 03/06/24 00:25 93 Oxymask 9 03/06/24 00:10 95 Oxymask 9 03/05/24 23:19 03/05/24 23:15 94 Nasal Cannula 9 03/05/24 22:33 93 Nasal Cannula 7 03/05/24 22:00 Laboratory Results Reviewed CBC reviewed chemistry PG Care Time/CCT Total # of Minutes Spent Total Time Spent with Patient: Total time spent is greater than 50% in coordination of care (as documented) at patient's floor/unit and/or counseling patient: Coding Level of Care Code 22426 SUB INP/OBS CARE 2/35MIN Diagnoses Acute respiratory failure with hypoxia J96.01 Metabolic encephalopathy G93.41 Elevated troponin I level R79.89 Severe acute respiratory syndrome coronavirus 2 (SARS-CoV-2) RNA test result positive at limit of detection U07.1 Parkinsons disease G20.A1 Hypernatremia E87.0
[2024-03-06] MEDS: DOXYCYCLINE HYCLATE 100 MG in DEXTROSE 5% MINI-B 100 ML IV SCH (09:38)
[2024-03-06] MEDS: methylPREDNISolone 40 MG in SYRINGE 0 ML IV SCH (09:40)
[2024-03-06] MEDS ORDERED: methylPREDNISolone 1000 MG/16 ML IV SCH (10:00)
[2024-03-06] MEDS: dexAMETHasone 10 MG in SYRINGE 0 ML IV SCH (10:54)
[2024-03-06] MEDS: PEPTAMEN 1.5 CAL 1,000 ML BAG OG SCH (11:39)
[2024-03-06] MEDS: TUBE FEEDING WATER FLUSH OG SCH (11:47)
[2024-03-06] MEDS ORDERED: GLUCOSE 10 TAB/TUBE PO PRN (12:00)
[2024-03-06] MEDS ORDERED: DEXTROSE 50% 50 ML SYRINGE IV PRN (12:00)
[2024-03-06] MEDS ORDERED: GLUCOSE 40% GEL 15 GM TUBE PO PRN (12:00)
[2024-03-06] MEDS ORDERED: GLUCAGON FOR INJ 1 MG VIAL SQ PRN (12:00)
[2024-03-06] MEDS ORDERED: CARBOHYDRATES FOR HYPOGLYCEMIA PO PRN (12:00)
[2024-03-06] MEDS: INSULIN ASPART PER UNIT CHARGE SC SCH (12:17)
--- NOTE | 2024-03-06 14:04 | XCELERA ---
[id number] \\[id number]
[2024-03-06 14:59] LABS: iSTAT Art Bld Gas pCO2 Correct 26 mmHg (35-46); iSTAT Art Bld Gas pH Corrected 7.414 (7.35-7.45); iSTAT Arterial Blood Gas HCO3 17 meg/L (19-24); iSTAT Arterial Blood Gas pCO2 26 mmHg (35-46); iSTAT Arterial Blood Gas pH 7.42 (7.35-7.45); iSTAT Arterial Blood Gas pO2 151 mmHg (80-95); iSTAT Arterial Blood Gas pO2 C 152; iSTAT Carbon Dioxide 17 mmol/L (24-31); iSTAT FiO2 45 %; iSTAT Hematocrit 19 % (37-47); iSTAT Hemoglobin 6.5 g/dl (12.0-16.0); iSTAT Potassium 3.9 mmol/L (3.3-5.0); iSTAT Site Art Line; iSTAT Sodium 147 mmol/L (135-144)
[2024-03-06] MEDS ORDERED: ROCURONIUM BROMIDE 10 MG/ML 5 ML VIAL IV ONE (16:18)
[2024-03-06] MEDS ORDERED: ETOMIDATE 2 MG/ML 20 ML VIAL IV ONE (16:18)
[2024-03-06] MEDS: fentaNYL citrate PF 100 MCG/2 ML VIAL IV PRN (16:21)
[2024-03-06 17:35] LABS: Hematocrit (blood only) 21.3 % (37.0-47.0); Hemoglobin 7.3 g/dl (12.0-16.0)
[2024-03-06] MEDS: ICU ELECTROLYTE REPLACEMENT PROTOCOL SCH (21:18)
[2024-03-06] MEDS: BRIMONIDINE TARTRATE/TIMOLOL OP SCH (21:27)
[2024-03-07 05:24] LABS: BUN Creatinine Ratio 66.7 (10-20); C Reactive Protein 18.79 mg/dl (0-0.5); Calcium 8.1 mg/dl (8.6-10.3); Creatinine Clr Calc Pharmacy 106.6 ml/min; Potassium 4.4 mmol/L (3.5-5.1)
[2024-03-07] MEDS ORDERED: SODIUM PHOSPHATE 3 MMOL/1 ML INFUSION IV STA (05:37)
[2024-03-07 05:40] LABS: Hematocrit (blood only) 21.4 % (37.0-47.0); Mean Corpuscular Hemoglobin 30.7 pg (25.0-34.0); Mean Corpuscular Hgb Conc 32.7 g/dL (32.0-36.0); Mean Corpuscular Volume 93.9 fL (80.0-100.0); Mean Platelet Volume 12.7 fL (9.4-12.4); Nucleated RBC # (auto) 0.02 K/uL (0.00-0.12); Nucleated RBC % (auto) 0.3 %; Platelet Count 71 K/uL (130-400); RDW Coefficient of Variation 13.9 % (11.5-14.5); RDW Standard Deviation 47.4 fL (36.4-46.3); Red Blood Count 2.28 M/uL (4.20-5.40); White Blood Count 5.96 K/ul (4.8-10.8)
[2024-03-07 05:49] LABS: Immature Granulocytes # (auto) 0.04 K/uL (0.01-0.20); Immature Granulocytes % (auto) 0.7 %; Lymphocytes # (auto) 0.44 K/uL (1.20-3.40); Lymphocytes % (auto) 7.4 %; Monocytes # (auto) 0.11 K/uL (0.11-0.59); Monocytes % (auto) 1.8 %; Neutrophils # (auto) 5.37 K/uL (1.40-6.50); Neutrophils % (auto) 90.1 %; RBC Morphology Unremarkable
[2024-03-07] MEDS ORDERED: SODIUM CHLORIDE 0.9% 250 ML IV PRN (07:01)
[2024-03-07] MEDS: SODIUM PHOSPHATE 15 MMOL in SODIUM CHLORIDE 0.9% 250 ML IV ONE (07:46)
[2024-03-07 08:06] LABS: iSTAT Art Bld Gas pCO2 Correct 24 mmHg (35-46); iSTAT Art Bld Gas pH Corrected 7.416 (7.35-7.45); iSTAT Arterial Blood Gas HCO3 16 meg/L (19-24); iSTAT Arterial Blood Gas pCO2 24 mmHg (35-46); iSTAT Arterial Blood Gas pH 7.42 (7.35-7.45); iSTAT Arterial Blood Gas pO2 88 mmHg (80-95); iSTAT Arterial Blood Gas pO2 C 88; iSTAT Carbon Dioxide 16 mmol/L (24-31); iSTAT Hematocrit 20 % (37-47); iSTAT Hemoglobin 6.8 g/dl (12.0-16.0); iSTAT Potassium 4.1 mmol/L (3.3-5.0); iSTAT Site Art Line; iSTAT Sodium 146 mmol/L (135-144)
[2024-03-07] MEDS: OPTIRAY 320 100ml IV ONE (09:02)
--- NOTE | 2024-03-07 10:06 | CT Scan Report ---
ABDOMEN AND PELVIS CT WITH IV CONTRAST CT DOSE: 1294.99 mGy.cm HISTORY: Acute onset abdominal pain with possible GI bleed R/O BLEED TECHNIQUE: Multiaxial CT images of the abdomen and pelvis were performed following the IV administrat ion of 94 cc of Optiray, A dose lowering technique was utilized adhering to the principles of ALARA. COMPARISON STUDY: CTA chest 03/06/2024 FINDINGS: Streak artifact related to the hip arthroplasties limits the exam. Mild cardiomegaly. Small -to-moderate layering pleural effusions have slightly increased in size. Multifocal groundglass and a lveolar opacities of the lungs redemonstrated suggestive of multifocal pneumonia. Study is degraded b y respiratory motion artifact. No pneumatosis or pneumoperitoneum. Unremarkable spleen, mildly atroph ic pancreas and left adrenal gland. Right adrenal gland calcifications appear chronic. Mildly distend ed gallbladder. The liver is within normal limits. 1.6 cm inferior right hepatic lobe cyst. Patency o f the portal vein. There are a few scattered subcentimeter left renal calcifications. 2.5 cm hypodensity of the mid infe rior pole left kidney suggestive of a probable cyst. No hydronephrosis. Decompressed urinary bladder with Trevino catheter. Atherosclerosis of the aorta without aneurysm. No lymphadenopathy. A feeding tub e is noted with distal tip terminating within the duodenum. No bowel obstruction. Fluid-filled nondil ated loops of both large and small bowel are present. Fluid-filled noninflamed appendix. Mild general ized body wall edema. Degenerative changes of the spine. IMPRESSION: 1. Limited exam as above. 2. Cwjfy-sg-njunkchj pleural effusions have mildly increased in size. There are persistent multifocal pulmonary opacities favoring multifocal pneumonia. 3. No bowel obstruction or bowel wall thickening. 4. Nondilated fluid-filled loops of large and small bowel may be physiologic or represent an ileus ve rsus enteritis with diarrheal illness. 5. Distal tip of feeding tube terminates in the duodenum. 6. Additional findings as above. ACT 112: Negative or not required by law. The above report was generated using voice recognition software. It may contain grammatical, syntax o r spelling errors. Electronically signed by: Adalid Luz M.D. 03/07/2024 10:04 AM
[2024-03-07] MEDS ORDERED: LOPERAMIDE HCL 2 MG CAP PO PRN (10:11)
[2024-03-07] MEDS: TERIPARATIDE INJ SQ SCH (10:33)
--- NOTE | 2024-03-07 11:31 | Critical Care Progress Note ---
Date of Service March 07, 2024 Assessment & Plan (1) Metabolic encephalopathy: (2) Respiratory failure: (3) Respiratory alkalosis: (4) Metabolic acidosis: (5) Pneumonia: (6) Severe acute respiratory syndrome coronavirus 2 (SARS-CoV-2) RNA test result positive at limit of detection: (7) Electrolyte disturbance: Plan Reason Critically Ill: 79 YOF presents to the ICU for hypocarbic and hypoxic respiratory failure in the setting of prolonged COVID and pneumonia Neuro - Encephalopathy, sedation for mechanical ventilation, hx of myopathy, Hx of Parkinsons, Hx TIA CAM ICU: NEGATIVE - Sedation for mechanical ventilation ERI goal -1: Propofol infusion, fentanyl PRN - reported history of myopathy- possibly related to COVID - She restarted her carbidopa/levodopa on 03/05/24 - Holding Plavix in the setting of drop in H&H - Send CK Cardiac - Tacyhycardia - multifactorial to include electrolyte disturbances, hypoxia, mixed respiratory alkalosis with metabolic acidosis - treat underlying respiratory and metabolic disorder and follow hemodynamic response. BNP 4000 Respiratory - Hypocarbic/Hypoxic respiratory failure, bilateral multifocal pneumonia, prolonged COVID - Required intubation for hypocarbic and hypoxic respiratory failure in setting of pneumonia - CT negative for PE- responded will to PEEP and intubation - Pneumonia -COVID-19 with superimposed bacterial likely -Out of the window for remdesivir Continue with dexamethasone 10 mg on a daily basis CRP 23 GI - Failure to thrive RENAL/LYTES - Respiratory alkalosis, metabolic acidosis, elevated lactate level , hypernatremia and other electrolyte disturbances - Hypernatremia - likely related to decreased free water - Her metabolic acidosis is multifactorial- including her diarrhea - No acute needs - Trevino to gravity ENDO - DMII - Hold Farxega- ICU hyper/hypoglycemic protocol - TSH will check now related to her hypoapnea HEME - No acute needs ID - Sepsis - source pulmonary at this time- bacterial vs. viral vs. aspiration or combination of any of them -Continue with antibiotics - MRSA swab negative - PCT 0.51 -Follow-up urine Legionella - Sputum sample pending - Blood cultures from 03/05/24- NGTD --Urine culture growing coagulase-negative staph and Yael Likely contaminant, doxycycline should cover coagulase-negative staph which is oxacillin resistant LINES/IV ACCESS - PIV x2, DHT, ETT, Trevino catheter, LEFT Radial arterial line, RIGHT IJ CVL Continue use of these lines DVT PROPHYLAXIS - SCDS, Hold on anticoagulation 2/2 drop in H&H and progressive thrombocytopenia. DISPO: ICU while intubated and sedated. At this time most likely cause for her decline is sepsis with respiratory failure. Admission and Anticipated Discharge Date Admission Date: March 03, 2024 Supervising Physician Co-Signing Physician Notes I saw and evaluated the patient with Roger Abdalla PA-C, and agree with findings and plan as documented in the note. CT chest 03/06/2024 personally reviewed: Diffuse groundglass opacities appreciated bilaterally upper and lower lobes Small bilateral pleural effusion No pulmonary emboli No significant mediastinal lymphadenopathy Patient seen and examined at bedside. She was not 30 of propofol, getting boluses of fentanyl as needed Her respiratory rate was 38 at the time of examination Still spiking low-grade fever. She has been having diarrhea. Her MAP was in the 100s when I saw her Constitutional: No acute distress HEENT: PERRLA Respiratory system: Recent entry bilaterally, no wheeze, no rhonchi, positive crackles bilaterally CVS: S1-S2 positive, no murmurs or gallops Abdomen: Soft, nontender, nondistended, positive bowel sounds x4 Extremities: +2 pulses bilaterally radialis/ dorsalis pedis, no cyanosis, +1 edema bilateral lower extremity Neuro: Breathing with the vent, RASS -2 Psych: Unable to assess G/U: Positive Trevino --Prophylaxis VTE: Lovenox GI: Pantoprazole Lines: Left radial, right IJ Diet: Tube feeds Plan: In/out: +572, urine output 535 Patient has been having diarrhea but C. difficile was negative couple of days ago. Loperamide will be added to patient's regimen Continue with dexamethasone Metabolic acidosis is likely from diarrhea. Phosphorus being replaced. The reason for patient's increased respiratory rate is probably central as well as fever. It would be difficult to liberate the patient from ventilator given the respiratory rate Patient hemoglobin has been trending down. CT abdominal pelvis did not show any signs of bleed. Fibrinogen is within normal limit, I doubt DIC. I have personally spent 46 minutes of critical care time in the direct manage ment of this patient. This is a life/limb threatening event. This includes time spent evaluating patient, direct bedside care, chart review, placing orders, interpretation of diagnostic studies, discussion with consultants, patient, and family members, as well as other required patient management activities. This time is exclusive of all separately billable procedures, separate from and in addition to any other critical care service time. Thank you for allowing us to participate in the care of this patient. Please refer to my attending physician's documentation for any further recommendations. Subjective Patient seen evaluated bedside. No adverse events overnight. H&H trended down. Review of Systems Review of Systems: callie secondary to encephalopathy Physical Exam Physical Exam: VITAL SIGNS - Vital signs and nursing notes were reviewed. GENERAL - 79-year-old female appearing her stated age who is in no acute distress. Intubated and sedated. SKIN - Without rashes. HEAD - NC/AT. EYES - PERRL with EOMI bilaterally. EARS - No deformities of external structures noted on gross examination bilaterally. NOSE - Midline and without cyanosis. No epistaxis or purulent drainage noted. MOUTH/OROPHARYNX - ETT/OGT in place. Without perioral cyanosis. NECK - Neck with FROM. Supple to palpation. LUNGS - Chest wall symmetric without accessory muscle use, intercostals retractions, or central cyanosis. Bibasilar rales. CARDIAC - RRR with S1/S2. No murmur, rubs, or gallops appreciated. ABDOMEN - Abdominal contour flat without pulsations or visible masses. BS normoactive all four quadrants. No tenderness, palpable masses, hepatosplenomegaly, or ascites noted. EXTREMITIES - No clubbing or peripheral cyanosis. No pretibial edema present. +3/5 radial and dorsalis pedis pulses palpated throughout. NEUROLOGIC - No focal neurological deficits appreciated. Results & Data Results & Data Vital Signs (Past 12 Hours) Vital Signs Pulse Resp Pulse Ox FiO2 03/07/24 11:06 74 26 H 97 30 03/07/24 09:21 100 03/07/24 07:37 72 30 H 99 30 03/07/24 05:20 30 10/09/24 02:50 69 31 H 97 30 Coding Level of Care Code 23725 SUB INP/OBS CARE 2/35MIN Diagnoses Metabolic encephalopathy G93.41 Respiratory failure J96.90 Respiratory alkalosis E87.3 Metabolic acidosis E87.20 Pneumonia J18.9 Laterality: bilateral Lung location: unspecified part of lung Pneumonia type: due to unspecified organism Severe acute respiratory syndrome coronavirus 2 (SARS-CoV-2) RNA test result positive at limit of detection U07.1 Electrolyte disturbance E87.8 (5) Pneumonia Laterality: bilateral Lung location: unspecified part of lung Pneumonia type: due to unspecified organism Qualified Code(s): J18.9 - Pneumonia, unspecified organism
--- NOTE | 2024-03-07 12:26 | Procedure Note ---
Procedure Note Date of Service March 07, 2024 Procedure: Internal Jugular Central Line Placement Attending: Dr. Freed APC: Roger Abdalla PA-C Indication: Central Drug Administration, Poor Venous Access, Multiple Lab Draws Necessary, etc. Anesthesia: Lidocaine 1% Emergent consent implied in the setting of loss of peripheral access, need for aggressive medications, frequent blood draws, etc. A time-out was completed verifying correct patient, procedure, site, positioning, and implants(s) or special equipment if applicable. Patient's RIGHT Neck was cleansed and draped in the typical sterile fashion using Chloraprep. The Internal Jugular Vein and Carotid Artery were identified using ultrasound. The superficial tissue was anesthetized using 5.0 mL of 1% lidocaine without epinephrine under direct visualization with the ultrasound. After adequate anesthetization was achieved, the Internal Jugular vein was cannulated under direct ultrasound guidance using an introducer needle on a syringe. Good venous blood return was maintained prior to removal of syringe from introducer needle. Using Seldinger Technique, a guide wire was advanced through the introducer needle without resistance. The introducer needle was removed and ultrasound images were obtained of the guide wire within the Internal Jugular Vein and saved to the patient's medical record. The dilator was advanced to the vessel without resistance. The dilator was exchanged for the triple lumen catheter which was advanced into the vessel without resistance. The guide wire was removed intact from the catheter without issue. Claves were placed on each catheter tip with confirmation of good blood flow from each lumen. Each port was easily flushed with sterile saline. The catheter was placed at 15 cm and sutured in place. BioPatch was applied to the catheter and a sterile Tegaderm dressing was applied over the catheter with careful attention to sterility. Patient tolerated procedure well. No immediate complications were met. Post procedure x-ray was completed, placement was appropriate and no pneumothorax was noted. Images obtained are saved for permanent record Procedural Ultrasound Guidance: Procedure Date: Indication: Poor peripheral access, need for pressors, frequent lab draws, etc. Attending: Dr. Freed APC: Roger Abdalla PA-C Artery AND Vein visualized: YES Compressible Vein: YES Guidewire or Short Catheter seen in vein prior to dilation: YES Line confirmed in Vein with ultrasound: YES Images obtained are saved for permanent record. [facility] [place] Codes (Charges) Tubes, Drains, and Vasc Access Procedure 1: Tubes, Drains, and Vasc Access: [id number] Insertion Of Non-tunneled Catheter Age 7 Yrs> Procedure 2: Tubes, Drains, and Vasc Access: [id number] Ultrasound Guidance For Vascular Coding CPT Codes Tubes, Drains, and Vasc Access - Tubes, Drains, and Vasc Access: [id number] Insertion Of Non-tunneled Catheter Age 7 Yrs> ([id number]) Tubes, Drains, and Vasc Access - Tubes, Drains, and Vasc Access: [id number] Ultrasound Guidance For Vascular ([id number]) Additional Codes Date of Service ([facility].SURGERY)
--- NOTE | 2024-03-07 12:52 | XRay Report ---
XR chest 1V portable CLINICAL HISTORY: central line placement. TECHNIQUE: Single frontal radiograph of the chest was obtained. Comparison: Comparison is made to chest radiograph 03/06/2024 FINDINGS: Lines and tubes are stable. Right IJ catheter terminates in the mid SVC. The cardiomediastinal silhou ette is stable. Multifocal airspace opacities are seen. No definite pleural effusions. IMPRESSION: Right IJ catheter is in satisfactory position. Redemonstration of multifocal airspace opacities. ACT 112: Negative or not required by law. Electronically signed by: Chris Murphy M.D. 03/07/2024 12:50 PM
[2024-03-07] MEDS: FUROSEMIDE INJ 20 MG/2 ML VIAL IV ONE ×2 (14:44→20:00)
[2024-03-07] MEDS ORDERED: STAT IV Infusion **Titration per Protocol STA (15:35)
[2024-03-07] MEDS: fentaNYL citrate 2,500 MCG/250 ML BAG IV SCH (15:45)
[2024-03-07 15:50] LABS: Albumin Level 2.7 gm/dl (3.4-5.0); Bilirubin Direct 0.2 mg/dl (0-0.2); Bilirubin,Total 0.4 mg/dl (0.2-1.0); Total Protein 5.3 gm/dl (6.0-8.3)
[2024-03-07] MEDS: fentaNYL citrate 2,500 MCG/250 ML BAG IV ONE (15:55)
[2024-03-07 16:03] LABS: Fibrinogen 833 mg/dl (184-400)
--- NOTE | 2024-03-07 18:34 | Hospitalist Progress Note ---
Date of Service March 07, 2024 Assessment & Plan (1) Acute respiratory failure with hypoxia: Plan: Suspected aspiration with dysphagia Severe distress requiring intubation and ventilation 03/[address] chest negative for PE did show multifocal pneumonia in context of recent COVID infection doxycycline/ zosyn concern with oropharyngeal dysphagia, nurse office was following secondary to parkinsons disease was on TF (2) Metabolic encephalopathy: Plan: secondary to infection, suspect sepsis poa from respiratory or urine source legionella testing pending mrsa negative Stop all sedating medications - baclofen, gabapentin urine growing evelia and Cogulase negative staph (3) Elevated troponin I level: Plan: Suspected demand ischemia, continue to trend Echo 03/06 without RWMA elevated bnp maybe from volume resusitation (4) Severe acute respiratory syndrome coronavirus 2 (SARS-CoV-2) RNA test result positive at limit of detection: Plan: Initially tested positive on February 12, not suspicious of new infection on decadron (5) Parkinsons disease: Plan: After initial fluid resuscitation restarting Sinemet via Corsafe (6) Hypernatremia: Plan: improving with ivf Plan VTE Prophylaxis -hold chemoprophylasix and plavis with newfound anemia, no appa rent acute blood loss GERD on pantoprozole Osteoporosis, on forteo on hold Diet - strict NPO Admission and Anticipated Discharge Date Admission Date: March 03, 2024 Subjective sedated Physical Exam Physical Exam: Resting comfortably ventilating easily Card exam is regular no defined loud murmurs Abdomen is soft nontender tube feeds are running Results & Data Results & Data Vital Signs (Past 12 Hours) Vital Signs Temp Pulse Resp BP Pulse Ox O2 Del Method FiO2 03/07/24 17:26 80 03/07/24 17:23 99.3 F 80 25 H 122/89 97 03/07/24 17:00 99.3 F 82 25 H 98 03/07/24 17:00 30 03/07/24 16:30 99.3 F 86 29 H 135/78 95 03/07/24 16:24 99.3 F 80 27 H 96 03/07/24 16:00 125/89 03/07/24 16:00 82 121/89 03/07/24 16:00 99.1 F 84 29 H 125/89 98 03/07/24 15:49 99.1 F 80 28 H 142/75 H 98 03/07/24 15:42 99.1 F 79 24 100 03/07/24 15:24 99.0 F 82 31 H 144/77 H 95 03/07/24 15:23 81 20 98 30 03/07/24 15:22 156/78 H 03/07/24 15:22 156/78 H 03/07/24 15:21 99.0 F 81 29 H 97 03/07/24 15:12 99.0 F 79 24 97 03/07/24 15:06 99.0 F 82 32 H 145/77 H 95 03/07/24 14:57 98.8 F 85 35 H 98 03/07/24 14:31 139/78 03/07/24 14:31 139/78 03/07/24 14:30 98.8 F 82 27 H 98 03/07/24 14:24 98.8 F 86 35 H 96 03/07/24 14:22 125/90 03/07/24 14:21 98.8 F 84 35 H 100 Mechanical Vent 30 03/07/24 14:06 98.8 F 84 32 H 100 Mechanical Vent 30 03/07/24 14:06 98.8 F 81 33 H 139/78 100 03/07/24 13:36 99.0 F 83 33 H 96 Mechanical Vent 30 03/07/24 13:36 99.0 F 84 31 H 114/81 96 03/07/24 13:27 99.0 F 81 29 H 97 Mechanical Vent 30 03/07/24 13:21 99.0 F 83 33 H 115/80 96 03/07/24 13:06 99.0 F 82 33 H 97 Mechanical Vent 30 03/07/24 13:04 98.8 F 81 33 H 121/81 96 03/07/24 13:00 30 03/07/24 12:03 80 39 H 91 Mechanical Vent 30 03/07/24 12:00 80 122/84 03/07/24 11:06 74 26 H 97 30 03/07/24 11:00 78 34 H 99 Mechanical Vent 30 03/07/24 10:12 78 32 H 98 Mechanical Vent 30 03/07/24 09:24 75 34 H 99 Mechanical Vent 30 03/07/24 09:21 100 03/07/24 08:03 98.8 F 72 28 H 99 Mechanical Vent 30 03/07/24 08:01 186/93 H 03/07/24 08:01 186/93 H 03/07/24 08:00 Mechanical Vent 35 03/07/24 08:00 84 114/81 03/07/24 07:54 98.6 F 78 31 H 98 Mechanical Vent 45 03/07/24 07:37 72 30 H 99 30 03/07/24 07:00 98.1 F 71 26 H 98 Mechanical Vent 45 PG Care Time/CCT Total # of Minutes Spent Total Time Spent with Patient: Total time spent is greater than 50% in coordination of care (as documented) at patient's floor/unit and/or counseling patient: Coding Level of Care Code 86291 SUB INP/OBS CARE 3/50MIN Diagnoses Acute respiratory failure with hypoxia J96.01 Metabolic encephalopathy G93.41 Elevated troponin I level R79.89 Severe acute respiratory syndrome coronavirus 2 (SARS-CoV-2) RNA test result positive at limit of detection U07.1 Parkinsons disease G20.A1 Hypernatremia E87.0
[2024-03-07] MEDS: BANATROL TF 60 ML LIQUID PKT PEG SCH (20:10)
[2024-03-07] MEDS: PANTOprazole 40 MG in SYRINGE BID IV SCH (20:13)
[2024-03-08 04:20] LABS: BUN Creatinine Ratio 43.3 (10-20); C Reactive Protein 13.31 mg/dl (0-0.5); Calcium 7.9 mg/dl (8.6-10.3); Creatinine Clr Calc Pharmacy 74.3 ml/min; Magnesium 1.9 mg/dl (1.7-2.4); Phosphorus 2.7 mg/dl (2.5-4.9); Potassium 4.9 mmol/L (3.5-5.1)
[2024-03-08 04:26] LABS: iSTAT Art Bld Gas pCO2 Correct 32 mmHg (35-46); iSTAT Art Bld Gas pH Corrected 7.324 (7.35-7.45); iSTAT Arterial Blood Gas HCO3 16 meg/L (19-24); iSTAT Arterial Blood Gas pCO2 31 mmHg (35-46); iSTAT Arterial Blood Gas pH 7.33 (7.35-7.45); iSTAT Arterial Blood Gas pO2 73 mmHg (80-95); iSTAT Arterial Blood Gas pO2 C 76; iSTAT Carbon Dioxide 17 mmol/L (24-31); iSTAT FiO2 30 %; iSTAT Hematocrit 31 % (37-47); iSTAT Hemoglobin 10.5 g/dl (12.0-16.0); iSTAT Potassium 4.7 mmol/L (3.3-5.0); iSTAT Site Art Line; iSTAT Sodium 142 mmol/L (135-144)
[2024-03-08 04:55] LABS: Basophils # (auto) 0.01 K/uL (0.00-0.20); Basophils % (auto) 0.1 %; Hematocrit (blood only) 32.9 % (37.0-47.0); Hemoglobin 11.3 g/dl (12.0-16.0); Immature Granulocytes # (auto) 0.08 K/uL (0.01-0.20); Immature Granulocytes % (auto) 1.1 %; Lymphocytes # (auto) 0.27 K/uL (1.20-3.40); Lymphocytes % (auto) 3.7 %; Mean Corpuscular Hemoglobin 30.8 pg (25.0-34.0); Mean Corpuscular Hgb Conc 34.3 g/dL (32.0-36.0); Mean Corpuscular Volume 89.6 fL (80.0-100.0); Mean Platelet Volume 12.4 fL (9.4-12.4); Monocytes # (auto) 0.09 K/uL (0.11-0.59); Monocytes % (auto) 1.2 %; Neutrophils % (auto) 93.9 %; Nucleated RBC # (auto) 0.03 K/uL (0.00-0.12); Nucleated RBC % (auto) 0.4 %; Platelet Count 81 K/uL (130-400); RBC Morphology Unremarkable; RDW Coefficient of Variation 14.9 % (11.5-14.5); RDW Standard Deviation 49.1 fL (36.4-46.3); Red Blood Count 3.67 M/uL (4.20-5.40); White Blood Count 7.25 K/ul (4.8-10.8)
[2024-03-08] MEDS: MAGNESIUM SULFATE / D5W 1 GM/100 ML BAG IV SCH (05:00)
--- NOTE | 2024-03-08 07:04 | Hospitalist Progress Note ---
Date of Service March 08, 2024 Assessment & Plan (1) Acute respiratory failure with hypoxia: Plan: Suspected aspiration with dysphagia Severe distress requiring intubation and ventilation 03/[address] chest negative for PE did show multifocal pneumonia in context of recent COVID infection doxycycline/ zosyn concern with oropharyngeal dysphagia, obstetrics specialist was following secondary to parkinsons disease was on TF low grade temp, blood cultures x 4 negative at this time, urine with CoNS resistent to oxacillin, and evelia, discuss antibiotics with ICU (2) Metabolic encephalopathy: Plan: secondary to infection, suspect sepsis poa from respiratory or urine source legionella testing pending mrsa negative Stop all sedating medications - baclofen, gabapentin urine growing evelia and Cogulase negative staph should be covered by doxycycline (3) Elevated troponin I level: Plan: Suspected demand ischemia, continue to trend Echo 03/06 without RWMA elevated bnp maybe from volume resusitation (4) Severe acute respiratory syndrome coronavirus 2 (SARS-CoV-2) RNA test result positive at limit of detection: Plan: Initially tested positive on February 12, not suspicious of new infection on decadron (5) Parkinsons disease: Plan: After initial fluid resuscitation restarted Sinemet via Corsafe (6) Hypernatremia: Plan: improving free water flushes Plan VTE Prophylaxis -hold chemoprophylaxis and Plavix with newfound anemia, no apparent acute blood loss GERD on pantoprazole Osteoporosis, on Forteo on hold Diet -TF Admission and Anticipated Discharge Date Admission Date: March 03, 2024 Subjective intubated and ventilated low grade temps urine has grown [employer] resistant to oxacillin and evelia, did de escalate vanco in last few days Physical Exam Physical Exam: Resting comfortably ventilating easily Card exam is regular no defined loud murmurs Abdomen is soft nontender tube feeds are running Results & Data Results & Data Vital Signs (Past 12 Hours) Vital Signs Temp Pulse Resp BP Pulse Ox O2 Del Method FiO2 03/08/24 06:03 100.2 F H 83 26 H 90 03/08/24 06:00 128/88 03/08/24 05:18 100.2 F H 82 22 97 03/08/24 05:00 131/89 03/08/24 05:00 40 03/08/24 04:54 100.0 F H 83 26 H 94 03/08/24 04:03 99.9 F H 82 24 95 03/08/24 04:00 123/72 03/08/24 04:00 123/72 03/08/24 04:00 80 131/56 L 03/08/24 03:57 99.9 F H 79 23 94 03/08/24 03:03 99.7 F H 80 22 95 03/08/24 03:00 103/82 03/08/24 03:00 103/82 03/08/24 03:00 103/82 03/08/24 02:39 99.7 F H 81 17 93 03/08/24 02:07 80 26 H 91 30 03/08/24 02:03 99.5 F 78 22 94 03/08/24 02:00 117/69 03/08/24 02:00 117/69 03/08/24 01:57 99.5 F 79 22 94 03/08/24 01:03 99.9 F H 80 23 93 03/08/24 01:00 102/72 03/08/24 01:00 102/72 03/08/24 01:00 30 03/08/24 00:57 100.0 F H 80 20 93 03/08/24 00:06 100.6 F H 85 23 92/70 L 93 03/08/24 00:00 94 H 115/96 03/07/24 23:57 100.8 F H 86 25 H 93 03/07/24 23:27 94 H 03/07/24 23:26 86 03/07/24 23:03 100.6 F H 89 24 91 03/07/24 23:03 89 23 92 30 03/07/24 23:01 133/89 03/07/24 22:51 101.1 F H 93 H 26 H 90 03/07/24 22:03 100.9 F H 93 H 27 H 91 03/07/24 22:01 157/72 H 03/07/24 21:57 100.9 F H 92 H 27 H 91 03/07/24 21:06 100.8 F H 94 H 28 H 93 03/07/24 21:01 148/85 H 03/07/24 21:00 30 03/07/24 20:51 100.8 F H 98 H 23 96 03/07/24 20:45 100.6 F H 105 H 24 139/85 92 03/07/24 20:00 Mechanical Vent 30 03/07/24 20:00 140/71 03/07/24 20:00 93 H 30 H 98 30 03/07/24 19:03 100.2 F H 90 30 H 134/97 91 Laboratory Results review cbc review chemistry PG Care Time/CCT Total # of Minutes Spent Total Time Spent with Patient: Total time spent is greater than 50% in coordination of care (as documented) at patient's floor/unit and/or counseling patient: Coding Level of Care Code 94362 SUB INP/OBS CARE 3/50MIN Diagnoses Acute respiratory failure with hypoxia J96.01 Metabolic encephalopathy G93.41 Elevated troponin I level R79.89 Severe acute respiratory syndrome coronavirus 2 (SARS-CoV-2) RNA test result positive at limit of detection U07.1 Parkinsons disease G20.A1 Hypernatremia E87.0
[2024-03-08] MEDS: SODIUM BICARB 8.4% INJ 50 MEQ/50 ML SYR IV STA (08:45)
--- NOTE | 2024-03-08 08:56 | Critical Care Progress Note ---
Date of Service March 08, 2024 Assessment & Plan (1) Metabolic encephalopathy: (2) Respiratory failure: (3) Respiratory alkalosis: (4) Metabolic acidosis: (5) Pneumonia: (6) Severe acute respiratory syndrome coronavirus 2 (SARS-CoV-2) RNA test result positive at limit of detection: (7) Electrolyte disturbance: Plan Reason Critically Ill: 79 YOF presents to the ICU for hypocarbic and hypoxic respiratory failure in the setting of prolonged COVID and pneumonia Neuro - Encephalopathy, sedation for mechanical ventilation, hx of myopathy, Hx of Parkinsons, Hx TIA CAM ICU: Unable to assess secondary to sedation - Sedation for mechanical ventilation ERI goal -1: Propofol infusion, fentanyl PRN - reported history of myopathy- possibly related to COVID - She restarted her carbidopa/levodopa on 03/05/24 - Holding Plavix in the setting of drop in H&H - Send CK Cardiac - Tacyhycardia - multifactorial to include electrolyte disturbances, hypoxia, mixed respiratory alkalosis with metabolic acidosis - treat underlying respiratory and metabolic disorder and follow hemodynamic response. BNP 4000 Respiratory - Hypocarbic/Hypoxic respiratory failure, bilateral multifocal pneumonia, prolonged COVID - Required intubation for hypocarbic and hypoxic respiratory failure in setting of pneumonia - CT negative for PE- responded will to PEEP and intubation - Pneumonia -COVID-19 with superimposed bacterial likely -Out of the window for remdesivir Continue with dexamethasone 10 mg on a daily basis CRP 23 GI - Failure to thrive RENAL/LYTES - Respiratory alkalosis, metabolic acidosis, elevated lactate level , hypernatremia and other electrolyte disturbances - Hypernatremia - likely related to decreased free water - Her metabolic acidosis is multifactorial- including her diarrhea. Received bicarb today for - No acute needs - Trevino to gravity ENDO - DMII - [facility] hyper/hypoglycemic protocol - TSH will check now related to her hypoapnea HEME - No acute needs ID - Sepsis - source pulmonary at this time- bacterial vs. viral vs. aspiration or combination of any of them -Continue with antibiotics - MRSA swab negative - PCT 0.51 -Follow-up urine Legionella - Sputum sample pending - Blood cultures from 03/05/24- NGTD --Urine culture growing coagulase-negative staph and Yael Likely contaminant, doxycycline should cover coagulase-negative staph which is oxacillin resistant LINES/IV ACCESS - PIV x2, DHT, ETT, Trevino catheter, LEFT Radial arterial line, RIGHT IJ CVL Continue use of these lines DVT PROPHYLAXIS - SCDS, Hold on anticoagulation 2/2 drop in H&H and progressive thrombocytopenia. DISPO: ICU while intubated and sedated. At this time most likely cause for her decline is sepsis with respiratory failure. Admission and Anticipated Discharge Date Admission Date: March 03, 2024 Supervising Physician Co-Signing Physician Notes I saw and evaluated the patient with Roger Abdalla PA-C, and agree with findings and plan as documented in the note. CT chest 03/06/2024 personally reviewed: Diffuse groundglass opacities appreciated bilaterally upper and lower lobes Small bilateral pleural effusion No pulmonary emboli No significant mediastinal lymphadenopathy Patient seen and examined at bedside. No acute distress, no adverse events overnight She was on 45 propofol and 75 fentanyl. MAP was in the 90s Left radial A-line was not working well. New right radial A-line placed today Constitutional: No acute distress HEENT: PERRLA Respiratory system: Recent entry bilaterally, no wheeze, no rhonchi, positive crackles bilaterally CVS: S1-S2 positive, no murmurs or gallops Abdomen: Soft, nontender, nondistended, positive bowel sounds x4 Extremities: +2 pulses bilaterally radialis/ dorsalis pedis, no cyanosis, +1 edema bilateral lower extremity Neuro: Breathing with the vent, RASS -2 Psych: Unable to assess G/U: Positive Trevino --Prophylaxis VTE: IPC secondary to drop in hemoglobin GI: Pantoprazole Lines: Right radial, right IJ Diet: Tube feeds Plan: In/out: -674, urine output 2465 Chest x-ray from today shows worsening opacities, it was an expiratory film. Sputum culture is growing Yael which is most likely a contaminant I will order fungal cultures from the blood Diarrhea has resolved 20 mg of Lasix will be given today Continue with dexamethasone By Given to the patient was updated on the phone I have personally spent 38 minutes of critical care time in the direct management of this patient. This is a life/limb threatening event. This includes time spent evaluating patient, direct bedside care, chart review, placing orders, interpretation of diagnostic studies, discussion with consultants, patient, and family members, as well as other required patient management activities. This time is exclusive of all separately billable procedures, separate from and in addition to any other critical care service time. Thank you for allowing us to participate in the care of this patient. Please refer to my attending physician's documentation for any further recommendations. Subjective Patient seen and evaluated bedside. She remains intubated and sedated. No significant adverse events overnight. Review of Systems Review of Systems: callie secondary to encephalopathy Physical Exam Physical Exam: VITAL SIGNS - Vital signs and nursing notes were reviewed. GENERAL - 79-year-old female appearing her stated age who is in no acute distress. Intubated and sedated. SKIN - Without rashes. HEAD - NC/AT. EYES - PERRL with EOMI bilaterally. EARS - No deformities of external structures noted on gross examination bilaterally. NOSE - Midline and without cyanosis. No epistaxis or purulent drainage noted. MOUTH/OROPHARYNX - ETT/OGT in place. Without perioral cyanosis. NECK - Neck with FROM. Supple to palpation. LUNGS - Chest wall symmetric without accessory muscle use, intercostals retractions, or central cyanosis. Bibasilar rales. CARDIAC - RRR with S1/S2. No murmur, rubs, or gallops appreciated. ABDOMEN - Abdominal contour flat without pulsations or visible masses. BS normoactive all four quadrants. No tenderness, palpable masses, hepatosplenomegaly, or ascites noted. EXTREMITIES - No clubbing or peripheral cyanosis. No pretibial edema present. +3/5 radial and dorsalis pedis pulses palpated throughout. NEUROLOGIC - No focal neurological deficits appreciated. Results & Data Results & Data Vital Signs (Past 12 Hours) Vital Signs Temp Pulse Resp BP Pulse Ox FiO2 03/08/24 07:36 90 24 90 40 03/08/24 06:03 37.9 C H 83 26 H 90 03/08/24 06:00 128/88 03/08/24 05:18 37.9 C H 82 22 97 03/08/24 05:00 131/89 03/08/24 05:00 40 03/08/24 04:54 37.8 C H 83 26 H 94 03/08/24 04:03 37.7 C H 82 24 95 03/08/24 04:00 123/72 03/08/24 04:00 123/72 03/08/24 04:00 80 131/56 L 03/08/24 03:57 37.7 C H 79 23 94 03/08/24 03:03 37.6 C H 80 22 95 03/08/24 03:00 103/82 03/08/24 03:00 103/82 03/08/24 03:00 103/82 03/08/24 02:39 37.6 C H 81 17 93 03/08/24 02:07 80 26 H 91 30 03/08/24 02:03 37.5 C 78 22 94 03/08/24 02:00 117/69 03/08/24 02:00 117/69 03/08/24 01:57 37.5 C 79 22 94 03/08/24 01:03 37.7 C H 80 23 93 03/08/24 01:00 102/72 03/08/24 01:00 102/72 03/08/24 01:00 30 03/08/24 00:57 37.8 C H 80 20 93 03/08/24 00:06 38.1 C H 85 23 92/70 L 93 03/08/24 00:00 94 H 115/96 03/07/24 23:57 38.2 C H 86 25 H 93 03/07/24 23:27 94 H 03/07/24 23:26 86 03/07/24 23:03 38.1 C H 89 24 91 03/07/24 23:03 89 23 92 30 03/07/24 23:01 133/89 03/07/24 22:51 38.4 C H 93 H 26 H 90 03/07/24 22:03 38.3 C H 93 H 27 H 91 03/07/24 22:01 157/72 H 03/07/24 21:57 38.3 C H 92 H 27 H 91 03/07/24 21:06 38.2 C H 94 H 28 H 93 03/07/24 21:01 148/85 H 03/07/24 21:00 30 Coding Level of Care Code 26943 CRITICAL CARE 1ST 30-74M Diagnoses Metabolic encephalopathy G93.41 Respiratory failure J96.90 Respiratory alkalosis E87.3 Metabolic acidosis E87.20 Pneumonia J18.9 Laterality: bilateral Lung location: unspecified part of lung Pneumonia type: due to unspecified organism Severe acute respiratory syndrome coronavirus 2 (SARS-CoV-2) RNA test result positive at limit of detection U07.1 Electrolyte disturbance E87.8 (5) Pneumonia Laterality: bilateral Lung location: unspecified part of lung Pneumonia type: due to unspecified organism Qualified Code(s): J18.9 - Pneumonia, unspecified organism
--- NOTE | 2024-03-08 09:40 | XRay Report ---
XR chest 1V portable CLINICAL HISTORY: increase need for 02 COMPARISON STUDY: Chest CT March 06, 2024. Chest radiograph March 07, 2024. FINDINGS: Tip of endotracheal tube is 3.5 cm above the jazmin. Tip of feeding tube is below the lower aspect of this image but at least within the gastric antrum. Right internal jugular central line rem ains in place. There is no pneumothorax. Small bilateral pleural effusions are unchanged. Multifocal bilateral airspace opacities are similar to prior exam. There is associated interstitial thickening. IMPRESSION: 1. Satisfactory positioning of lines and tubes. 2. Persistent extensive bilateral airspace opacities with interstitial thickening. The findings favor multifocal pneumonia. Pulmonary edema could appear similar. 3. No pneumothorax. Small bilateral pleural effusions. ACT 112: Negative or not required by law. Electronically signed by: Alexis Caballero M.D. 03/08/2024 9:38 AM
[2024-03-08 10:13] LABS: Potassium Random Urine 73.3 mmol/L
[2024-03-08] MEDS: FUROSEMIDE INJ 20 MG/2 ML VIAL IV STA (11:07)
--- NOTE | 2024-03-08 12:58 | Procedure Note ---
Procedure Note Date of Service March 08, 2024 Procedure: Arterial Line Placement Attending: Dr. Freed APC: Roger Abdalla PA-C Indication: Hemodynamic monitoring Anesthesia: Lidocaine 1% Emergent Consent implied in the setting of clinical deterioration and need for close hemodynamic monitoring, ABG monitoring, frequent lab draws, etc. Previously placed radial arterial line became nonfunctional and had to be removed. A time-out was completed verifying correct patient, procedure, site, positioning, and implant(s) or special equipment if applicable. Jay's test was performed to ensure adequate perfusion. Patient's RIGHT wrist was prepped and draped in the usual sterile fashion. Ultrasound guidance was used to aid needle placement. A 20g Arrow arterial line was introduced into the RIGHT Radial artery. Catheter was threaded, and the needle was removed with appropriate blood return. Good waveform was observed. The patient tolerated the procedure well. Blood Loss: Minimal Complications: None Procedural Ultrasound Guidance: Procedure Date: Indication: Hemodynamic Monitoring, Frequent ABGs/Lab draws. Attending: Dr. Freed APC: Roger Abdalla PA-C Artery Identified: YES Line confirmed in Artery with ultrasound: YES Complications: NONE Patient tolerated procedure: WELL [facility] Procedure Codes (Charges) Tubes, Drains, and Vasc Access Procedure 1: Tubes, Drains, and Vasc Access: [id number] Arterial Cath/Cannulation Sampling/Monitoring/Transfusion Coding CPT Codes Tubes, Drains, and Vasc Access - Tubes, Drains, and Vasc Access: [id number] Arterial Cath/Cannulation Sampling/Monitoring/Transfusion ([id number]) Additional Codes Date of Service ([facility]SURGERY)
[2024-03-08] MEDS ORDERED: STAT IV Infusion **Titration per Protocol STA (13:58)
[2024-03-08] MEDS: NOREPINEPHRINE/D5W 4 MG/250 ML PLCT IV SCH (14:07)
--- NOTE | 2024-03-09 | Magnetic Resonance Report ---
Exam(s): MRI HEAD Without Contrast EXAM: MR Head Without Intravenous Contrast CLINICAL HISTORY: Reason for exam: eval for mass or central cause for tachypnea. TECHNIQUE: Magnetic resonance images of the head/brain without intravenous contrast in multiple planes. COMPARISON: No relevant prior studies available. FINDINGS: Brain: There is a large right and small left occipital lobe acute ischemic injury without evidence of hemorrhagic transformation. There are numerous tiny foci of acute ischemic injury in the cerebrum and cerebellum. Advanced nonspecific white matter changes. Ventricles: Advanced ventriculomegaly. Bones/joints: Unremarkable. No acute fracture. Sinuses: Unremarkable as visualized. No acute sinusitis. Mastoid air cells: There is a small amount of fluid in the ethmoid air cells. No mastoid effusion. Orbits: Bilateral lens replacements. IMPRESSION: Large right and small left bilateral occipital lobe acute ischemic injuries with numerous tiny foci of acute ischemic injury throughout the cerebrum and cerebellum concerning for embolic phenomena. Recommend CT angiogram of the head and neck and echocardiogram further evaluation. No evidence of hemorrhagic transformation. Communications: Verify Receipt Electronically signed by: Kimberli Hooker MD 03/08/24 23:59 PM
--- NOTE | 2024-03-09 03:27 | CT Scan Report ---
Exam(s): CTA HEAD With Contrast IV Amt: 118 ML OPTIRAY 320 EXAM: CT Angiography Head With Intravenous Contrast CLINICAL HISTORY: Reason for exam: multiple embolic CVAs on MRI. TECHNIQUE: Axial computed tomographic angiography images of the head with intravenous contrast. CTDI is 22.84 mGy and DLP is 455.73 mGy-cm. Automated exposure control was utilized for the study. A dose lowering technique was utilized adhering to the principles of ALARA. MIP reconstructed images were created and reviewed. CONTRAST: Patient received 118 ML OPTIRAY 320 of IV contrast COMPARISON: No relevant prior studies available. FINDINGS: The dural venous sinuses are patent. Right internal carotid artery: No acute findings. Intracranial segment is patent with no significant stenosis. No aneurysm. Right anterior cerebral artery: Unremarkable. No occlusion or significant stenosis. No aneurysm. Right middle cerebral artery: Unremarkable. No occlusion or significant stenosis. No aneurysm. Right posterior cerebral artery: Unremarkable. No occlusion or significant stenosis. No aneurysm. Right vertebral artery: Unremarkable as visualized. Left internal carotid artery: No acute findings. Intracranial segment is patent with no significant stenosis. No aneurysm. Left anterior cerebral artery: Unremarkable. No occlusion or significant stenosis. No aneurysm. Left middle cerebral artery: Unremarkable. No occlusion or significant stenosis. No aneurysm. Left posterior cerebral artery: Unremarkable. No occlusion or significant stenosis. No aneurysm. Left vertebral artery: Unremarkable as visualized. Basilar artery: Unremarkable. No occlusion or significant stenosis. No aneurysm. IMPRESSION: Negative CT angiogram of the head. Electronically signed by: Kimberli Hooker MD 03/09/24 03:26 AM
--- NOTE | 2024-03-09 03:29 | CT Scan Report ---
Exam(s): CTA NECK With Contrast IV Amt: 118 ML OPTIRAY 320 EXAM: CT Angiography Neck With Intravenous Contrast CLINICAL HISTORY: Reason for exam: multiple embolic cvas on MRI. TECHNIQUE: Routine carotid CT angiography protocol was performed with intravenous contrast. NASCET criteria using the distal ICAs for comparison were used for evaluation of stenoses. CTDI is 22.84 mGy and DLP is 455.73 mGy-cm. Automated exposure control was utilized for the study. A dose lowering technique was utilized adhering to the principles of ALARA. MIP reconstructed images were created and reviewed. CONTRAST: Patient received 118 ML OPTIRAY 320 of IV contrast COMPARISON: None. FINDINGS: VASCULATURE: Right common carotid artery: Unremarkable. No occlusion or significant stenosis. No dissection. Right internal carotid artery: Unremarkable. Extracranial segment is patent with no occlusion or significant stenosis. No dissection. Right external carotid artery: Unremarkable. No occlusion. Right vertebral artery: Unremarkable. No occlusion or significant stenosis. No dissection. Left common carotid artery: Unremarkable. No occlusion or significant stenosis. No dissection. Left internal carotid artery: Unremarkable. Extracranial segment is patent with no occlusion or significant stenosis. No dissection. Left external carotid artery: Unremarkable. No occlusion. Left vertebral artery: Unremarkable. No occlusion or significant stenosis. No dissection. NECK: Bones/joints: Unremarkable. No acute fracture. Soft tissues: Unremarkable. Lung apices: Bilateral pulmonary infiltrates with pleural effusions. CAROTID STENOSIS REFERENCE USING NASCET CRITERIA: % ICA stenosis = (1 - narrowest ICA diameter/diameter of distal cervical ICA) x 100. Mild - <50% stenosis. Moderate - 50-69% stenosis. Severe - 70-94% stenosis. Near occlusion - 95-99% stenosis. Occluded - 100% stenosis. IMPRESSION: Negative CTA neck. Electronically signed by: Kimberli Hooker MD 03/09/24 03:28 AM
[2024-03-09] MEDS ORDERED: PROPOFOL BOLUS FROM BAG IV PRN (05:05)
[2024-03-09] MEDS ORDERED: STAT IV Infusion **Titration per Protocol STA (05:05)
[2024-03-09] MEDS: propofoL 1,000 MG/100 ML VIAL IV SCH (05:12)
[2024-03-09 05:47] LABS: Hematocrit (blood only) 32.7 % (37.0-47.0); Hemoglobin 10.6 g/dl (12.0-16.0); Mean Corpuscular Hemoglobin 29.9 pg (25.0-34.0); Mean Corpuscular Hgb Conc 32.4 g/dL (32.0-36.0); Mean Corpuscular Volume 92.1 fL (80.0-100.0); Platelet Count 51 K/uL (130-400); RDW Coefficient of Variation 15.4 % (11.5-14.5); RDW Standard Deviation 51.9 fL (36.4-46.3); Red Blood Count 3.55 M/uL (4.20-5.40); White Blood Count 5.53 K/ul (4.8-10.8)
[2024-03-09 05:51] LABS: BUN Creatinine Ratio 51.1 (10-20); C Reactive Protein 27.4 mg/dl (0-0.5); Calcium 7.5 mg/dl (8.6-10.3); Creatinine Clr Calc Pharmacy 93.8 ml/min; Magnesium 2.1 mg/dl (1.7-2.4); Phosphorus 2.8 mg/dl (2.5-4.9); Potassium 4.9 mmol/L (3.5-5.1)
[2024-03-09 05:58] LABS: Immature Granulocytes # (auto) 0.06 K/uL (0.01-0.20); Immature Granulocytes % (auto) 1.1 %; Lymphocytes # (auto) 0.27 K/uL (1.20-3.40); Lymphocytes % (auto) 4.9 %; Monocytes # (auto) 0.05 K/uL (0.11-0.59); Monocytes % (auto) 0.9 %; Neutrophils # (auto) 5.15 K/uL (1.40-6.50); Neutrophils % (auto) 93.1 %; Polychromasia 1+
--- NOTE | 2024-03-09 07:05 | XRay Report ---
XR chest 1V portable CLINICAL HISTORY: f/u COMPARISON STUDY: Chest CT March 06, 2024. Chest radiograph March 08, 2024. FINDINGS: Tip of endotracheal tube is 3.6 cm above the jazmin. Tip of feeding tube is at least within the body of the stomach. Right internal jugular central line remains in place. There is no pneumotho rax. Small bilateral pleural effusions persist. Cardiomediastinal silhouette is stable. Multifocal bi lateral airspace opacities and interstitial thickening persists. IMPRESSION: 1. Satisfactory positioning of lines and tubes. 2. Extensive bilateral airspace opacities and interstitial thickening, similar to prior exam. The fin dings favor multifocal pneumonia although pulmonary edema could appear similar. 3. Small bilateral pleural effusions. No pneumothorax. ACT 112: Negative or not required by law. Electronically signed by: Alexis Caballero M.D. 03/09/2024 7:04 AM
--- NOTE | 2024-03-09 08:05 | Hospitalist Progress Note ---
Date of Service March 09, 2024 Assessment & Plan (1) Embolic stroke: Plan: Pt had MRI 03/08 with confirmed acute embolic CVA-large right and small lfeft occipital lobe ischemic injury with multiple tiny foci of injury throughout the cerebrum and cerebellum, no hemorrhagic transformation on plavix, depending on course may consider statin , ABCD2 score is low so single antiplatelet agent recommended echo and CTA without origin, maybe some subacute component, could be initial event? 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 was on TF low grade temp, blood cultures x 4 negative at this time, urine with CoNS resistent to oxacillin, and evelia, discuss antibiotics with ICU (3) Metabolic encephalopathy: Plan: secondary to infection, suspect sepsis poa from respiratory or urine source legionella testing pending mrsa negative Stop all sedating medications - baclofen, gabapentin urine growing evelia and Cogulase negative staph should be covered by doxycycline (4) Elevated troponin I level: Plan: Suspected demand ischemia, continue to trend Echo 03/06 without RWMA elevated bnp maybe from volume resusitation (5) Severe acute respiratory syndrome coronavirus 2 (SARS-CoV-2) RNA test result positive at limit of detection: Plan: Initially tested positive on February 12, not suspicious of new infection on decadron (6) Parkinsons disease: Plan: After initial fluid resuscitation restarted Sinemet via Corsafe (7) Hypernatremia: Plan: resolved (8) Anemia: Plan: of undetermined source or cause no obvious blood loss s/p 2 u prbc Plan VTE Prophylaxis - GERD on pantoprazole Osteoporosis, on Forteo on hold Diet -TF Admission and Anticipated Discharge Date Admission Date: March 03, 2024 Subjective Large bilateral embolic stroke, Palliative care involved as pre illness functional status was poor, Family will coordinate possible compassionate extubation, may involve [facility] hospice Physical Exam Physical Exam: Resting comfortably ventilating easily Card exam is regular no defined loud murmurs Abdomen is soft nontender tube feeds are running Results & Data Results & Data Vital Signs (Past 12 Hours) Vital Signs Temp Pulse Resp BP Pulse Ox O2 Del Method FiO2 03/09/24 07:39 81 21 96 50 03/09/24 06:09 100.2 F H 77 20 99 03/09/24 06:00 150/70 H 03/09/24 05:57 100.2 F H 77 19 97 03/09/24 05:12 100.0 F H 75 20 96 03/09/24 05:00 135/76 03/09/24 05:00 50 03/09/24 04:51 99.9 F H 75 18 97 03/09/24 04:06 99.7 F H 71 20 98 03/09/24 04:00 124/74 03/09/24 04:00 67 131/84 03/09/24 03:45 99.7 F H 71 20 98 03/09/24 03:00 131/84 03/09/24 03:00 131/84 03/09/24 03:00 131/84 03/09/24 03:00 99.5 F 67 20 98 03/09/24 02:40 66 20 98 50 03/09/24 02:03 99.3 F 66 24 99 03/09/24 02:00 129/76 03/09/24 02:00 129/76 03/09/24 02:00 129/76 03/09/24 01:57 99.3 F 67 24 99 03/09/24 01:39 140/86 03/09/24 01:27 99.3 F 68 21 100 03/09/24 01:26 157/88 H 03/09/24 01:26 157/88 H 03/09/24 01:12 99.3 F 69 20 99 03/09/24 01:00 99.1 F 69 20 98 03/09/24 01:00 162/84 H 03/09/24 01:00 50 03/09/24 00:56 146/94 H 03/09/24 00:51 99.1 F 20 97 03/09/24 00:48 99.1 F 20 03/09/24 00:00 133/76 03/09/24 00:00 133/76 03/09/24 00:00 133/76 03/09/24 00:00 73 03/08/24 23:54 99.5 F 66 20 99 03/08/24 23:26 73 03/08/24 23:05 135/74 03/08/24 23:00 99.9 F H 66 20 100 03/08/24 22:36 99.9 F H 74 18 97 03/08/24 22:35 73 21 97 50 03/08/24 22:16 145/85 H 03/08/24 22:16 145/85 H 03/08/24 22:15 99.7 F H 81 24 03/08/24 22:06 77 20 95 03/08/24 21:25 69 03/08/24 21:03 100.0 F H 66 20 94 03/08/24 21:00 50 03/08/24 20:00 Mechanical Vent 50 03/08/24 20:00 100.0 F H 69 20 90 03/08/24 20:00 68 03/08/24 19:59 106/75 Laboratory Results review cbc review chemistry PG Care Time/CCT Total # of Minutes Spent Total Time Spent with Patient: Total time spent is greater than 50% in coordination of care (as documented) at patient's floor/unit and/or counseling patient: Coding Level of Care Code 52826 SUB INP/OBS CARE 3/50MIN Diagnoses Embolic stroke I63.9 Acute respiratory failure with hypoxia J96.01 Metabolic encephalopathy G93.41 Elevated troponin I level R79.89 Severe acute respiratory syndrome coronavirus 2 (SARS-CoV-2) RNA test result positive at limit of detection U07.1 Parkinsons disease G20.A1 Hypernatremia E87.0 Anemia D64.9
--- NOTE | 2024-03-09 08:13 | Critical Care Progress Note ---
Date of Service March 09, 2024 Assessment & Plan (1) Metabolic encephalopathy: (2) Respiratory failure: (3) Respiratory alkalosis: (4) Metabolic acidosis: (5) Pneumonia: (6) Severe acute respiratory syndrome coronavirus 2 (SARS-CoV-2) RNA test result positive at limit of detection: (7) Electrolyte disturbance: (8) Acute CVA (cerebrovascular accident): (9) Dementia: (10) Anemia: Plan Reason Critically Ill: 79 YOF presents to the ICU for hypocarbic and hypoxic respiratory failure in the setting of prolonged COVID and pneumonia Neuro - Encephalopathy, sedation for mechanical ventilation, hx of myopathy, Hx of Parkinsons, Hx TIA CAM ICU: Unable to assess secondary to sedation Sedation with propofol and fentanyl --Multiple acute strokes bilaterally affecting the cerebellum as well as cerebrum Appreciated on MRI 03/08/2024 Etiology is most likely embolic 2D echo did not show any vegetations Neck CTA was negative CTA chest was negative for any emboli in the aorta Blood cultures are negative No shunt on the bubble study New nausea on board Recommend heparin drip -- Recent worsening and more mental status in the last 2-3 months Probably Parkinson's related dementia - Sedation for mechanical ventilation ERI goal -1: Propofol infusion, fentanyl PRN - reported history of myopathy- possibly related to COVID - She restarted her carbidopa/levodopa on 03/05/24 - Holding Plavix in the setting of drop in H&H Cardiac - Tacyhycardia - multifactorial to include electrolyte disturbances, hypoxia, mixed respiratory alkalosis with metabolic acidosis - treat underlying respiratory and metabolic disorder and follow hemodynamic response. BNP 4000 Respiratory - Hypocarbic/Hypoxic respiratory failure, bilateral multifocal pneumonia, prolonged COVID - Required intubation for hypocarbic and hypoxic respiratory failure in setting of pneumonia - CT negative for PE- responded will to PEEP and intubation CT chest 03/06/2024 personally reviewed: Diffuse groundglass opacities appreciated bilaterally upper and lower lobes Small bilateral pleural effusion No pulmonary emboli No significant mediastinal lymphadenopathy - Pneumonia -COVID-19 with superimposed bacterial likely -Out of the window for remdesivir Continue with dexamethasone 10 mg on a daily basis CRP 23 GI - Failure to thrive RENAL/LYTES - Respiratory alkalosis, metabolic acidosis, elevated lactate level , hypernatremia and other electrolyte disturbances Monitor BUNs/creatinine Avoid nephrotoxic medication - No acute needs - Trevino to gravity [facility]O - [facility]ogly[facility] - TSH will check now related to her hypoapnea HEME - No acute needs ID - Sepsis - source pulmonary at this time- bacterial vs. viral vs. aspiration or combination of any of them, ? Fungal -Continue with antibiotics - MRSA swab negative - PCT 0.51 -Follow-up urine Legionella - Sputum sample pending - Blood cultures from 03/05/24- NGTD --Urine culture growing coagulase-negative staph and Yael Likely contaminant, doxycycline should cover coagulase-negative staph which is oxacillin resistant --Prophylaxis VTE: IPC secondary to drop in hemoglobin GI: Pantoprazole Lines: Right radial, right IJ Diet: Tube feeds Plan: In/out:+685, urine output 1625 Chest x-ray from today shows worsening opacities, it was an expiratory film. I will start the patient on caspofungin today empirically Do not have a clear reason for multiple embolic stroke. Neck CTA was negative CTA chest was negative for any emboli in the aorta Bubble study was also negative Usually 1 the patient to be on heparin drip but given the platelets of only 51 and patient had a drop in hemoglobin we will hold back on heparin drip. Case was discussed with neurology Dr. Michelle Will give 20 mg of Lasix Continue with dexamethasone Overall prognosis of the patient is guarded. was updated on the phone I have personally spent 42 minutes of critical care time in the direct management of this patient. This is a life/limb threatening event. This includes time spent evaluating patient, direct bedside care, chart review, placing orders, interpretation of diagnostic studies, discussion with consultants, patient, and family members, as well as other required patient management activities. This time is exclusive of all separately billable procedures, separate from and in addition to any other critical care service time. Thank you for allowing us to participate in the care of this patient. Please refer to my attending physician's documentation for any further recommendations. Admission and Anticipated Discharge Date Admission Date: March 03, 2024 Subjective Patient seen and examined at bedside. No acute distress, notable symptoms overnight She was on 45 propofol 100 of fentanyl She was breathing about the vent Not following any commands Not on any vasopressors Still spiking fever Review of Systems 2 Review of Systems: Unobtainable due to endotracheal tube Physical Exam 2 Physical Exam: Constitutional: No acute distress HEENT: Left pupil sluggish response, right pupil dilated with sluggish response Respiratory system: Decreased air entry bilaterally, no wheeze, no rhonchi, positive crackles bilaterally CVS: S1-S2 positive, no murmurs or gallops Abdomen: Soft, nontender, nondistended, positive bowel sounds x4 Extremities: +2 pulses bilaterally radialis/ dorsalis pedis, no cyanosis, +1 edema bilateral lower extremity Neuro: Breathing with the vent, RASS -2 Psych: Unable to assess G/U: Positive Trevino Skin: no rashes, warm and dry Lymphatic: no cervical or axillary lymphadenopathy Results & Data Results & Data Vital Signs (Past 12 Hours) Vital Signs Temp Pulse Resp BP Pulse Ox FiO2 03/09/24 07:39 81 21 96 50 03/09/24 06:09 37.9 C H 77 20 99 03/09/24 06:00 150/70 H 03/09/24 05:57 37.9 C H 77 19 97 03/09/24 05:12 37.8 C H 75 20 96 03/09/24 05:00 135/76 03/09/24 05:00 50 03/09/24 04:51 37.7 C H 75 18 97 03/09/24 04:06 37.6 C H 71 20 98 03/09/24 04:00 124/74 03/09/24 04:00 67 131/84 03/09/24 03:45 37.6 C H 71 20 98 03/09/24 03:00 131/84 03/09/24 03:00 131/84 03/09/24 03:00 131/84 03/09/24 03:00 37.5 C 67 20 98 03/09/24 02:40 66 20 98 50 03/09/24 02:03 37.4 C 66 24 99 03/09/24 02:00 129/76 03/09/24 02:00 129/76 03/09/24 02:00 129/76 03/09/24 01:57 37.4 C 67 24 99 03/09/24 01:39 140/86 03/09/24 01:27 37.4 C 68 21 100 03/09/24 01:26 157/88 H 03/09/24 01:26 157/88 H 03/09/24 01:12 37.4 C 69 20 99 03/09/24 01:00 37.3 C 69 20 98 03/09/24 01:00 162/84 H 03/09/24 01:00 50 03/09/24 00:56 146/94 H 03/09/24 00:51 37.3 C 20 97 03/09/24 00:48 37.3 C 20 03/09/24 00:00 133/76 03/09/24 00:00 133/76 03/09/24 00:00 133/76 03/09/24 00:00 73 03/08/24 23:54 37.5 C 66 20 99 03/08/24 23:26 73 03/08/24 23:05 135/74 03/08/24 23:00 37.7 C H 66 20 100 03/08/24 22:36 37.7 C H 74 18 97 03/08/24 22:35 73 21 97 50 03/08/24 22:16 145/85 H 03/08/24 22:16 145/85 H 03/08/24 22:15 37.6 C H 81 24 03/08/24 22:06 77 20 95 03/08/24 21:25 69 03/08/24 21:03 37.8 C H 66 20 94 03/08/24 21:00 50 Laboratory Results 03/09/24 04:15 03/09/24 04:13 Coding Level of Care Code 69903 CRITICAL CARE 1ST 30-74M Diagnoses Metabolic encephalopathy G93.41 Respiratory failure J96.90 Respiratory alkalosis E87.3 Metabolic acidosis E87.20 Pneumonia J18.9 Laterality: bilateral Lung location: unspecified part of lung Pneumonia type: due to unspecified organism Severe acute respiratory syndrome coronavirus 2 (SARS-CoV-2) RNA test result positive at limit of detection U07.1 Electrolyte disturbance E87.8 Acute CVA (cerebrovascular accident) I63.9 Dementia F03.90 Anemia D64.9 (5) Pneumonia Laterality: bilateral Lung location: unspecified part of lung Pneumonia type: due to unspecified organism Qualified Code(s): J18.9 - Pneumonia, unspecified organism
[2024-03-09] MEDS: FUROSEMIDE INJ 20 MG/2 ML VIAL IV ONE (08:33)
[2024-03-09] MEDS: ACETAMINOPHEN 1,000 MG/100 ML VIAL IV PRN (09:32)
[2024-03-09] MEDS: fentaNYL BOLUS from BAG IV PRN (09:40)
[2024-03-09] MEDS: CASPOFUNGIN 70 MG in SODIUM CHLORIDE 0.9% 250 ML IV ONE (10:57)
--- NOTE | 2024-03-09 11:00 | Neurology Consultation ---
Date of Consultation March 09, 2024 Assessment & Plan (1) Acute CVA (cerebrovascular accident): (2) Parkinsons disease: (3) Dementia: Plan Patient has an underlying history of at least moderate Parkinson's disease with dementia. The patient has had multiple strokes of varying sizes most particularly the posterior fossa bilaterally but also in anterior circulation bilaterally as well. Right posterior cerebral artery territory has a bigger infarct but there is some occlusion of that artery. There are quite a number of acute and subacute strokes of the small nature. Given the vascular territories involved this has to be embolic in nature. Origin would be the heart or the aortic arch most likely. I note that the echocardiogram was largely unremarkable but bubble studies were being done. Patient had COVID and may have had a hypercoagulable state leading to multiple strokes throughout her central nervous system. It is impossible to tell from the MRI whether these lesions are infectious or bland. They note the fever but no source of infection has been specifically identified Overall prognosis is guarded to somewhat poor from a neurologic standpoint. On top of that she has an underlying diagnosis of Parkinson's disease and dementia which is progressive as well Recommendations: 1. Consider heparin to prevent further emboli. 2. Clopidogrel and other antiplatelet medication would not be indicated for treatment and/or prevention of embolic strokes. Clopidogrel would be of help for preventing small vessel ischemic disease or small strokes from a hypercoagulable state. 3. Continue Parkinson medication via NG tube. Convert to p.o. when able 4. I will follow Overall, I spent a total of 100 minutes with this case including review of records, review of MRI films, direct evaluation the patient, report generation, and discussion of the case with the RN at bedside and doctors Federico Freed, and Sophie including differential diagnosis and treatment options. History of Present Illness Reason for Consultation: Patient is a 79-year-old who I was asked to see at the request of Dr. Freed, for neurologic consultation regarding stroke Requesting Physician: Dr. Freed Attending Physician: Carlos Barrios MD History of Present Illness This patient has a past medical history of Parkinson's disease and dementia. There is also evidence of dysphagia. I have no details regarding the extent and severity of these conditions but the patient was on carbidopa/levodopa, 25/100, 1 tablet 4 times a day as an outpatient. She was also on gabapentin 100 mg in the morning and 200 mg at night and sertraline 150 mg each evening. I do not have any information regarding mood disorders. The patient had a COVID infection that started February 06. She was admitted to [facility] for some breathing difficulties February 12 but discharged home. She was doing well again until February 19 when she was readmitted to [facility] and diagnosed with bilateral pneumonia. There was a question regarding aspiration as well. She was discharged to [facility] February 21 and again did well for a couple of days but over time had progressive problems with eating and drinking, confusion, activities of daily living, tachypnea. She was transferred to [facility] March 03. The patient was intubated March 06. She was never very responsive On March 08, the patient had an MRI of the brain. I reviewed these films with Dr. Caballero radiology and she has multiple scattered strokes, likely embolic. They are in anterior and posterior circulation bilaterally. They are of varying degrees of brightness suggesting that some may be subacute while others more acute. There is a larger stroke in the right posterior cerebral artery territory greater than the left. There is some moderate old small vessel is chemia in general that was seen. CT angiography of the head and neck were largely unremarkable although there was some occlusion with distal reconstitution in the right posterior cerebral artery. This was noted by Dr. Caballero and not on the official report from the outside radiologist. An echocardiogram was obtained on March 06 and was largely unremarkable although a bubble study is being done now. Patient is intubated and on propofol. I asked the nurse to discontinue the propofol to see if I could obtain a reasonable neurologic examination. Allergies Allergy/AdvReac Type Severity Reaction Status Date / Time angiotensin II acetate, human Allergy Anaphylaxis Unverified 03/03/24 18:48 etanercept [From Enbrel] Allergy Anaphylaxis Unverified 03/03/24 18:48 mannitol [From Reclast] Allergy Anaphylaxis Unverified 03/03/24 18:48 olmesartan [From Benicar] Allergy Unknown Unverified 03/03/24 18:48 water for injection,sterile Allergy Anaphylaxis Unverified 03/03/24 18:48 [From Reclast] zoledronic acid Allergy Anaphylaxis Unverified 03/03/24 18:48 [From Reclast] Home Medications Medication Instructions Recorded Confirmed Type acetaminophen 325 mg tablet 650 mg PO QID PRN Pain 03/03/24 03/03/24 History acetazolamide 250 mg tablet 250 mg PO BID 03/03/24 03/03/24 History amlodipine 5 mg tablet 5 mg PO DAILY 03/03/24 03/03/24 History atorvastatin 10 mg tablet 10 mg PO HS 03/03/24 03/03/24 History baclofen 10 mg tablet 10 mg PO QID 03/03/24 03/03/24 History bisacodyl 10 mg rectal suppository 10 mg ID DAILY PRN Constipation 03/03/24 03/03/24 History brimonidine 0.2 %-timolol 0.5 % 1 drp ophthalmic (eye) BID 03/03/24 03/03/24 History eye drops carbidopa 25 mg-levodopa 100 mg 1 tab PO QID 03/03/24 03/03/24 History tablet clopidogrel 75 mg tablet 75 mg PO DAILY 03/03/24 03/03/24 History cyanocobalamin (vitamin B-12) 1,000 mcg PO DAILY 03/03/24 03/03/24 History 1,000 mcg tablet dextrose 50 % in water (D50W) 1 g IV DIRECTED PRN Other 03/03/24 03/03/24 History docusate sodium 100 mg capsule 100 mg PO BID 03/03/24 03/03/24 History dorzolamide 2 % eye drops 1 drp ophthalmic (eye) BID 03/03/24 03/03/24 History enoxaparin 40 mg/0.4 mL 40 mg subcut DAILY 03/03/24 03/03/24 History subcutaneous syringe folic acid 1 mg tablet 1 mg PO DAILY 03/03/24 03/03/24 History gabapentin 100 mg capsule 100 mg PO QAM 03/03/24 03/03/24 History gabapentin 100 mg capsule 200 mg PO HS 03/03/24 03/03/24 History latanoprost 0.005 % eye drops 1 drp ophthalmic (eye) PM 03/03/24 03/03/24 History loratadine 10 mg tablet 10 mg PO DAILY 03/03/24 03/03/24 History magnesium hydroxide 400 mg/5 mL 30 ml PO DAILY PRN Constipation 03/03/24 03/03/24 History oral suspension (Milk of Magnesia) magnesium oxide 400 mg PO BID 03/03/24 03/03/24 History ondansetron 4 mg disintegrating 4 mg PO Q4H PRN Nausea 03/03/24 03/03/24 History tablet pantoprazole 20 mg tablet,delayed 20 mg PO DAILYBB 03/03/24 03/03/24 History release piperacillin-tazobactam 4.5 gram 2.25 g IV Q6H 03/03/24 03/03/24 History intravenous solution polyethylene glycol 3350 17 gram 17 g PO DAILY PRN Constipation 03/03/24 03/03/24 History oral powder packet polymyxin B sulfate 10,000 1 drp ophthalmic (eye) Q4H 03/03/24 03/03/24 History unit-trimethoprim 1 mg/mL eye drops potassium chloride 20 mEq oral 40 meq PO QID 03/03/24 03/03/24 History packet sennosides 8.6 mg-docusate sodium 1 tab PO DAILYBL PRN Constipation 03/03/24 03/03/24 History 50 mg tablet sertraline 50 mg tablet 150 mg PO DAILY 03/03/24 03/03/24 History sodium chloride 0.9 % 0.9 ea IV CONTINOUS 03/03/24 03/03/24 History sodium chloride 0.9 % (flush) 5 ml IV Q8H 03/03/24 03/03/24 History sodium phosphates 19 gram-7 133 ml ID DAILY PRN Constipation 03/03/24 03/03/24 History gram/118 mL enema (Enema) teriparatide 20 mcg/dose (600 20 mcg subcut DAILY 03/03/24 03/03/24 History mcg/2.4 mL) subcutaneous pen injector ubiquinone 90 mg disintegrating 200 mg PO DAILY 03/03/24 03/03/24 History tablet vit C-vit Z-vlzmjm-scrntrfy-omega 1 cap PO DAILY 03/03/24 03/03/24 History 3 100 mg-15 unit-2 mg-100 mg capsule Patient History Medical History History of TIA (transient ischemic attack) Osteoporosis Hyponatremia Rheumatoid arthritis Glaucoma Parkinsons disease GERD (gastroesophageal reflux disease) Hyperlipidemia Hypertension Asthma Social History Smoking Status: Unknown if ever smoked Preferred Language: Senegalese Communication Ability: Impaired Car Dispatcher Required: No Current Living Situation: Rehab Feels Safe at Home: Yes Assistive Devices: Walker Review of Systems Review of Systems: Unobtainable due to endotracheal tube and Unobtainable due to reduced consciousness Exam (Neuro) Physical Exam: The patient's exam 15 to 20 minutes after stopping the propofol showed that she could flicker her eyes some with shout and gentle shaking. She would not have any spontaneous movements of her limbs. Patient is breathing at a rate of approximately 24 and the ventilator is set at 20. Blood pressure was 134/52 and pulse was 92 and regular. Temperature was 38.4 earlier this morning and patient was given acetaminophen. O2 saturation was 95%. Eyes open passively and eyes are skewed with the left eye abducting and the right eye looking more straight ahead. Pupils were 2 to 3 mm on the left and reactive and 4 to 5 mm on the right and not reactive. The patient has a history of glaucoma and procedures in the right eye. Corneal reflexes were not appreciated bilaterally. With passive movement of the head and holding the eyelids open there was some positive oculocephalic movements in a vertical but not horizontal plane. Neck was fairly supple but she was intubated. Patient had a little grimacing with pressure on the supraorbital notches bilaterally. Patient had a positive gag to direct stimulation and a positive cough to suctioning. When she coughed with the suctioning she would contract all 4 limbs. Limb tone is decreased in all 4 limbs. There are no spontaneous movements and no abnormal involuntary movements seen. Reflexes were 2/4 in the biceps and triceps tendons bilaterally and 1/4 in the brachioradialis tendons bilaterally. Quadriceps and Achilles tendon reflexes were absent bilaterally. Toes were upgoing with plantar stimulation bilaterally. The patient had some withdrawal to deep pain in the upper and lower extremities bilaterally. Results & Data Vital Signs (Past 12 Hours) Vital Signs Temp Pulse Resp BP Pulse Ox FiO2 03/09/24 10:20 94 H 23 95 50 03/09/24 09:02 50 03/09/24 08:09 38.3 C H 82 20 99 03/09/24 07:39 81 21 96 50 03/09/24 07:06 38.1 C H 79 20 99 03/09/24 06:09 37.9 C H 77 20 99 03/09/24 06:00 150/70 H 03/09/24 05:57 37.9 C H 77 19 97 03/09/24 05:12 37.8 C H 75 20 96 03/09/24 05:00 135/76 03/09/24 05:00 50 03/09/24 04:51 37.7 C H 75 18 97 03/09/24 04:06 37.6 C H 71 20 98 03/09/24 04:00 124/74 03/09/24 04:00 67 131/84 03/09/24 03:45 37.6 C H 71 20 98 03/09/24 03:00 131/84 03/09/24 03:00 131/84 03/09/24 03:00 131/84 03/09/24 03:00 37.5 C 67 20 98 03/09/24 02:40 66 20 98 50 03/09/24 02:03 37.4 C 66 24 99 03/09/24 02:00 129/76 03/09/24 02:00 129/76 03/09/24 02:00 129/76 03/09/24 01:57 37.4 C 67 24 99 03/09/24 01:39 140/86 03/09/24 01:27 37.4 C 68 21 100 03/09/24 01:26 157/88 H 03/09/24 01:26 157/88 H 03/09/24 01:12 37.4 C 69 20 99 03/09/24 01:00 37.3 C 69 20 98 03/09/24 01:00 162/84 H 03/09/24 01:00 50 03/09/24 00:56 146/94 H 03/09/24 00:51 37.3 C 20 97 03/09/24 00:48 37.3 C 20 03/09/24 00:00 133/76 03/09/24 00:00 133/76 03/09/24 00:00 133/76 03/09/24 00:00 73 03/08/24 23:54 37.5 C 66 20 99 03/08/24 23:26 73 03/08/24 23:05 135/74 03/08/24 23:00 37.7 C H 66 20 100 PG Care Time/CCT Total # of Minutes Spent Total Time Spent with Patient: Total time spent is greater than 50% in coordination of care (as documented) at patient's floor/unit and/or counseling patient: Coding Level of Care Code 52553 INT INP/OBS CARE MIN Diagnoses Acute CVA (cerebrovascular accident) I63.9 Parkinsons disease G20.A1 Dementia F03.90 Time Spent (min) 100
--- NOTE | 2024-03-09 12:03 | XCELERA ---
[id number] \\[email or web address]_[email or web address]\[id number]
--- NOTE | 2024-03-09 14:07 | Palliative Care Consultation ---
Date of Consultation March 09, 2024 Assessment & Plan (1) Dyspnea and respiratory abnormalities: For Palliative extubation Anticipate hi intensity symptom burden given severity of illness and clinical findings/she is not overbreathing the vent Recommend GIP for optimizing EOL symptom burden (2) Discussion about advance care planning held with family member: An urgent, telephonic ACP discussion was held with Karolyn's . I spoke with Dr Snell ([facility] a neuropsychologist) by phone for 25min. We discussed her declining status of the past few years,recent covid challenges, and the Mri Brain findings. He states he is not surprised to hear there are more complications and the extent of the brain findings he knows is not curable/fixable. He wants to focus on comfort. He is clear she would not want to live like this and be dependent on others for all her care and not be of her own mind. We spoke about palliative extubation and he is in agreement, but needs to speak with their 4 children first (they are [place] of state) but feels they will also agree. I advised her anticipated survival is likely short, hours to days. He states she would not want any of this and she has been steadily declining for past 2-3 years. This isnt the life shed want for herself in anyway. She is DNR/DNI/no escalation. Hes unsure he wants to be here, but is open to having a phone placed to her ear so he can say goodbye. He will be calling back this afternoon with a definite answer. He adds that they just recently lost their 47yo son to stage IV esoph cancer. Dr. Snell is suffering. I will add reccs for extubation protocol meds. Ill be unavailable (no computer access) 345pm to about 7pm tonight. (3) Altered mental status: (4) Weakness generalized: (5) Severe acute respiratory syndrome coronavirus 2 (SARS-CoV-2) RNA test result positive at limit of detection: (6) Embolic stroke: (7) Acute hypoxemic respiratory failure: (8) Parkinson's disease dementia: Plan Palliative extubation anticipated, will update teams with time/date preference. No escalation of care. If she acutely worsens, transition to [employer] Anticipate hi intensity symptom burden given severity of illness and clinical findings/she is not overbreathing the vent Recommend GIP for optimizing EOL symptom burden For palliative extubation, I suggest the following regimen: * Suggest Dilaudid 1mg IV prior to extubation then 0.5-1mg q5min prn resp distress, pain or air hunger; titrate dose to effect in increments of 0.5-1mg until effective relief is obtained. Please consider an infusion if sx persist. * Ativan 1mg IV prior to extubation, then q30min prn agitation, restlessness, myoclonus * If there is anxiety or agitation +/- terminal delirium, please begin Versed infusion as follows: Versed 2 mg IV bolus, then Versed drip at 1mg/hr. Titrate by 0.5 to 1mg increments until relief is achieved. * Levsin 0.5mg IV 20 min prior to extubation then 0.25mg IV q4h prn for secretions OR Robinul 0.4mg IV 15min prior to extubation then q3-4hr PRN thereafter * Titrate medications to control labored respirations and achieve the desired state of sedation prior to extubation. Testing the eyelid reflex is a common method of quickly assessing level of consciousness. * Have additional medication drawn up and ready to administer at the bedside if needed. * After ventilator withdrawal: Most respiratory distress ensues in the first few hours after the extubation. If distress is noted, utilize additional bolus doses of opioids and benzodiazepines (e.g. morphine 5-10 mg IV push q 10 min, and/or midazolam, 2-4 mg IV push q 10 min, until distress is relieved). You can adjust infusion rates to maintain relief but remember infusion rates have a delayed effect. Therefore, avoid relying on infusion rates to control distress seen after the extubation. * Specific dosages are less important than the goal of symptom relief. A goal should be to keep the respiratory rate < 30 and eliminate grimacing, agitation, and labored respirations. Updated teams. Thank you for allowing me to participate in the ongoing care of this patient. Please page with any additional concerns. Michael Braden DNP Director, Palliative Medicine History of Present Illness Reason for Consultation: Strokes Attending Physician: Carlos Barrios MD History of Present Illness Karolyn is a 79yo female with PD, past TIA, declining PS Recent COVID 02/12 now with recurrent resp failure, multilobar PNA, sepsis, fevers progressive neuro decline per for 2-3 years now with bowel and bladder incont, falls, ambulatory dysfxn, declining appetite, weakness, inc co nfusion/agitation/restlessness c/w Parkinson's Dementia Brain MRI shows multiple bilat embolic infarcts/no clear source - echo/bubble/chest CT negative for source she is thrombocytopenic and heparin cannot be given overall very poor prognosis Allergies Allergy/AdvReac Type Severity Reaction Status Date / Time angiotensin II acetate, human Allergy Anaphylaxis Unverified 03/03/24 18:48 etanercept [From Enbrel] Allergy Anaphylaxis Unverified 03/03/24 18:48 mannitol [From Reclast] Allergy Anaphylaxis Unverified 03/03/24 18:48 olmesartan [From Benicar] Allergy Unknown Unverified 03/03/24 18:48 water for injection,sterile Allergy Anaphylaxis Unverified 03/03/24 18:48 [From Reclast] zoledronic acid Allergy Anaphylaxis Unverified 03/03/24 18:48 [From Reclast] Home Medications Medication Instructions Recorded Confirmed Type acetaminophen 325 mg tablet 650 mg PO QID PRN Pain 03/03/24 03/03/24 History acetazolamide 250 mg tablet 250 mg PO BID 03/03/24 03/03/24 History amlodipine 5 mg tablet 5 mg PO DAILY 03/03/24 03/03/24 History atorvastatin 10 mg tablet 10 mg PO HS 03/03/24 03/03/24 History baclofen 10 mg tablet 10 mg PO QID 03/03/24 03/03/24 History bisacodyl 10 mg rectal suppository 10 mg NE DAILY PRN Constipation 03/03/24 03/03/24 History brimonidine 0.2 %-timolol 0.5 % 1 drp ophthalmic (eye) BID 03/03/24 03/03/24 History eye drops carbidopa 25 mg-levodopa 100 mg 1 tab PO QID 03/03/24 03/03/24 History tablet clopidogrel 75 mg tablet 75 mg PO DAILY 03/03/24 03/03/24 History cyanocobalamin (vitamin B-12) 1,000 mcg PO DAILY 03/03/24 03/03/24 History 1,000 mcg tablet dextrose 50 % in water (D50W) 1 g IV DIRECTED PRN Other 03/03/24 03/03/24 History docusate sodium 100 mg capsule 100 mg PO BID 03/03/24 03/03/24 History dorzolamide 2 % eye drops 1 drp ophthalmic (eye) BID 03/03/24 03/03/24 History enoxaparin 40 mg/0.4 mL 40 mg subcut DAILY 03/03/24 03/03/24 History subcutaneous syringe folic acid 1 mg tablet 1 mg PO DAILY 03/03/24 03/03/24 History gabapentin 100 mg capsule 100 mg PO QAM 03/03/24 03/03/24 History gabapentin 100 mg capsule 200 mg PO HS 03/03/24 03/03/24 History latanoprost 0.005 % eye drops 1 drp ophthalmic (eye) PM 03/03/24 03/03/24 Histor y loratadine 10 mg tablet 10 mg PO DAILY 03/03/24 03/03/24 History magnesium hydroxide 400 mg/5 mL 30 ml PO DAILY PRN Constipation 03/03/24 03/03/24 History oral suspension (Milk of Magnesia) magnesium oxide 400 mg PO BID 03/03/24 03/03/24 History ondansetron 4 mg disintegrating 4 mg PO Q4H PRN Nausea 03/03/24 03/03/24 History tablet pantoprazole 20 mg tablet,delayed 20 mg PO DAILYBB 03/03/24 03/03/24 History release piperacillin-tazobactam 4.5 gram 2.25 g IV Q6H 03/03/24 03/03/24 History intravenous solution polyethylene glycol 3350 17 gram 17 g PO DAILY PRN Constipation 03/03/24 03/03/24 History oral powder packet polymyxin B sulfate 10,000 1 drp ophthalmic (eye) Q4H 03/03/24 03/03/24 History unit-trimethoprim 1 mg/mL eye drops potassium chloride 20 mEq oral 40 meq PO QID 03/03/24 03/03/24 History packet sennosides 8.6 mg-docusate sodium 1 tab PO DAILYBL PRN Constipation 03/03/24 03/03/24 History 50 mg tablet sertraline 50 mg tablet 150 mg PO DAILY 03/03/24 03/03/24 History sodium chloride 0.9 % 0.9 ea IV CONTINOUS 03/03/24 03/03/24 History sodium chloride 0.9 % (flush) 5 ml IV Q8H 03/03/24 03/03/24 History sodium phosphates 19 gram-7 133 ml NE DAILY PRN Constipation 03/03/24 03/03/24 History gram/118 mL enema (Enema) teriparatide 20 mcg/dose (600 20 mcg subcut DAILY 03/03/24 03/03/24 History mcg/2.4 mL) subcutaneous pen injector ubiquinone 90 mg disintegrating 200 mg PO DAILY 03/03/24 03/03/24 History tablet vit C-vit J-dscgxg-omygzeet-omega 1 cap PO DAILY 03/03/24 03/03/24 History 3 100 mg-15 unit-2 mg-100 mg capsule Patient History Medical History History of TIA (transient ischemic attack) Osteoporosis Hyponatremia Rheumatoid arthritis Glaucoma Parkinsons disease GERD (gastroesophageal reflux disease) Hyperlipidemia Hypertension Asthma Social History Smoking Status: Unknown if ever smoked Preferred Language: Slovenian Communication Ability: Impaired Customer Support Executive Required: No Current Living Situation: Rehab Feels Safe at Home: Yes Assistive Devices: Walker Review of Systems Review of Systems: Unobtainable due to reduced consciousness Physical Exam Physical Exam: Intubated/+ ETT to vent does not overbreathe the vent grimacing and withdrawing to noxious mild inc resp effort intermittently tachy at times, HR 90-100s abd soft diffuse weakness pallor, clammy skin unresponsive - no purposeful response to verbal, withdraws to noxious Results & Data Vital Signs (Past 12 Hours) Vital Signs Temp Pulse Resp BP Pulse Ox O2 Del Method FiO2 03/09/24 13:20 50 03/09/24 11:06 38.1 C H 99 H 22 97 03/09/24 10:57 38.3 C H 107 H 21 93 03/09/24 10:20 94 H 23 95 50 03/09/24 10:00 152/80 H 03/09/24 10:00 38.4 C H 92 H 20 96 03/09/24 09:02 50 03/09/24 09:00 160/88 H 03/09/24 09:00 38.3 C H 86 19 98 03/09/24 08:09 38.3 C H 82 20 99 03/09/24 07:39 81 21 96 50 03/09/24 07:30 Mechanical Vent 50 03/09/24 07:06 38.1 C H 79 20 99 03/09/24 06:09 37.9 C H 77 20 99 03/09/24 06:00 150/70 H 03/09/24 05:57 37.9 C H 77 19 97 03/09/24 05:12 37.8 C H 75 20 96 03/09/24 05:00 135/76 03/09/24 05:00 50 03/09/24 04:51 37.7 C H 75 18 97 03/09/24 04:06 37.6 C H 71 20 98 03/09/24 04:00 124/74 03/09/24 04:00 67 131/84 03/09/24 03:45 37.6 C H 71 20 98 03/09/24 03:00 131/84 03/09/24 03:00 131/84 03/09/24 03:00 131/84 03/09/24 03:00 37.5 C 67 20 98 03/09/24 02:40 66 20 98 50 03/09/24 02:03 37.4 C 66 24 99 03/09/24 02:00 129/76 03/09/24 02:00 129/76 03/09/24 02:00 129/76 03/09/24 01:57 37.4 C 67 24 99 Laboratory Results 03/09/24 03/09/24 03/09/24 Range/Units 12:04 04:15 04:13 WBC 5.53 (4.8-10.8) K/ul RBC 3.55 L (4.20-5.40) M/uL Hgb 10.6 L (12.0-16.0) g/dl POC Hgb (12.0-16.0) g/dl Hct 32.7 L (37.0-47.0) % POC Hct (37-47) % MCV 92.1 (80.0-100.0) fL MCH 29.9 (25.0-34.0) pg MCHC 32.4 (32.0-36.0) g/dL RDW Std Deviation 51.9 H (36.4-46.3) fL RDW Coeff of Ailyn 15.4 H (11.5-14.5) % Plt Count 51 L (130-400) K/uL MPV (9.4-12.4) fL Immature Gran % (Auto) 1.1 % Neut % (Auto) 93.1 % Lymph % (Auto) 4.9 % Madison % (Auto) 0.9 % Eos % (Auto) 0.0 % Baso % (Auto) 0.0 % Neut # (Auto) 5.15 (1.40-6.50) K/uL Lymph # (Auto) 0.27 L (1.20-3.40) K/uL Madison # (Auto) 0.05 L (0.11-0.59) K/uL Eos # (Auto) 0.00 (0.00-0.50) K/uL Baso # (Auto) 0.00 (0.00-0.20) K/uL Immature Gran # (Auto) 0.06 (0.01-0.20) K/uL Absolute Nucleated RBC (0.00-0.12) K/uL Nucleated RBC % (auto) % RBC Morphology Polychromasia 1+ Poikilocytosis Acanthocytes (Spur) PT (9.0-12.0) Seconds INR (0.9-1.1) APTT (21-31) Seconds PTT Ratio Fibrinogen (184-400) mg/dl Factor VIII Activity (55 - 145) % Sample Site POC pH (7.35-7.45) POC pCO2 (35-46) mmHg POC pO2 (80-95) mmHg POC HCO3 (19-24) smaara/L POC Total CO2 (24-31) mmol/L POC Base Excess (-9-1.8) samara/L ABG pH (7.35-7.45) ABG pH (Temp Correct) (7.35-7.45) ABG pCO2 (35-46) mmHg ABG pCO2 (Temp Corrct (35-46) mmHg ABG pO2 (80-95) mmHg POC ABG pO2 at Pt Temp ABG HCO3 (19-24) mmol/L POC ABG O2 Sat (90-95) % ABG O2 Saturation (90-95) % ABG Base Excess (-9-1.8) mEq/L Jay Test (Pos) VBG pH (7.36-7.41) VBG pCO2 (38-50) mmHg VBG pO2 mmHg VBG HCO3 mmol/L VBG O2 Saturation % VBG Base Excess mEq/L Oxygen Given O2 Delivery Device POC O2 Rate Minute Ventilation POC FiO2 % Tidal Volume PEEP POC Sodium (135-144) mmol/L Sodium 139 (136-145) mmol/L POC Potassium (3.3-5.0) mmol/L Potassium 4.9 (3.5-5.1) mmol/L Chloride 111 H (98-107) mmol/L Carbon Dioxide 22 (21-32) mmol/L Anion Gap 6 (3-11) BUN 24 H (6-23) mg/dl Creatinine 0.47 L (0.6-1.2) mg/dl Est Cr Clr Drug Dosing 93.8 ml/min eGFR 97.99 BUN/Creatinine Ratio 51.1 H (10-20) Glucose 149 H (70-99(Fasting)) mg/dl POC Glucose 178 H (70-99) mg/dl POC Glucose (other) (70-99) mg/dl Lactate (0.4-2.0) mmol/L Calcium 7.5 L (8.6-10.3) mg/dl Phosphorus 2.8 (2.5-4.9) mg/dl Magnesium 2.1 (1.7-2.4) mg/dl Total Bilirubin (0.2-1.0) mg/dl Direct Bilirubin (0-0.2) mg/dl AST (13-39) U/L ALT (7-52) U/L Alkaline Phosphatase (34-104) U/L Lactate Dehydrogenase (86-244) U/L Total Creatine Kinase (26-192) U/L Troponin I High Sens (0-14) pg/ml C-Reactive Protein 27.40 H (0-0.5) mg/dl B-Natriuretic Peptide (0-100) pg/ml Total Protein (6.0-8.3) gm/dl Albumin (3.4-5.0) gm/dl Globulin (2.5-4.0) gm/dl Albumin/Globulin Ratio (0.9-2) Procalcitonin (0-0.5) ng/ml TSH (0.300-4.500) uIu/ml Urine Color Urine Appearance (Clear) Urine pH (4.5-7.5) Ur Specific Beecher (1.000-1.030) Urine Protein (Negative) Urine Glucose (UA) (Negative) Urine Ketones (Negative) Urine Blood (Negative) Urine Nitrite (Negative) Urine Bilirubin (Negative) Urine Urobilinogen (Negative) Ur Leukocyte Esterase (Negative) Urine WBC (Auto) (0-5) /hpf Urine RBC (Auto) (0-2) /hpf U Hyaline Cast (Auto) (0-2) /lpf U Epithel Cells (Auto) (0-2) /hpf Urine Bacteria (Auto) (None Seen) Urine Yeast (None Prsent) Urine Osmolality (500-800) mOsm/kg Ur Random Creatinine mg/dl Ur Random Sodium mmol/L Ur Random Potassium mmol/L Ur Random Chloride mmol/L Nasal Screen MRSA (PCR) (Negative) Stool Occult Bld Scrn (Negative) Stl C. diff Tox B Gene (Neg) Adenovirus (PCR) (NotDetected) B. pertussis DNA (PCR) (NotDetected) B.parapertussis DNA PCR (NotDetected) C. pneumoniae DNA (PCR) (NotDetected) Coronavirus OC43 (PCR) (NotDetected) Coronavirus HKU1 (PCR) (NotDetected) Coronavirus 229E (PCR) (NotDetected) SARS-CoV-2 (PCR) (Negative) Coronavirus NL63 (PCR) (NotDetected) Human Metapneumovir PCR (NotDetected) Influenza Type A (PCR) (Neg) Influenza Type B (PCR) (Neg) Urine Legionella Ag M. pneumoniae (PCR) (NotDetected) Parainfluenza 1 (PCR) (NotDetected) Parainfluenza 2 (PCR) (NotDetected) Parainfluenza 3 (PCR) (NotDetected) Parainfluenza 4 (PCR) (NotDetected) RSV (RT-PCR) (Neg) RSV (PCR) (NotDetected) Entero/Rhino (PCR) (NotDetected) Ref Lab Test Result Blood Type Blood Type Recheck Antibody Screen Crossmatch 03/09/24 03/08/24 03/08/24 Range/Units 01:06 18:11 12:08 WBC (4.8-10.8) K/ul RBC (4.20-5.40) M/uL Hgb (12.0-16.0) g/dl POC Hgb (12.0-16.0) g/dl Hct (37.0-47.0) % POC Hct (37-47) % MCV (80.0-100.0) fL MCH (25.0-34.0) pg MCHC (32.0-36.0) g/dL RDW Std Deviation (36.4-46.3) fL RDW Coeff of Ailyn (11.5-14.5) % Plt Count (130-400) K/uL MPV (9.4-12.4) fL Immature Gran % (Auto) % Neut % (Auto) % Lymph % (Auto) % Madison % (Auto) % Eos % (Auto) % Baso % (Auto) % Neut # (Auto) (1.40-6.50) K/uL Lymph # (Auto) (1.20-3.40) K/uL Madison # (Auto) (0.11-0.59) K/uL Eos # (Auto) (0.00-0.50) K/uL Baso # (Auto) (0.00-0.20) K/uL Immature Gran # (Auto) (0.01-0.20) K/uL Absolute Nucleated RBC (0.00-0.12) K/uL Nucleated RBC % (auto) % RBC Morphology Polychromasia Poikilocytosis Acanthocytes (Spur) PT (9.0-12.0) Seconds INR (0.9-1.1) APTT (21-31) Seconds PTT Ratio Fibrinogen (184-400) mg/dl Factor VIII Activity (55 - 145) % Sample Site POC pH (7.35-7.45) POC pCO2 (35-46) mmHg POC pO2 (80-95) mmHg POC HCO3 (19-24) samara/L POC Total CO2 (24-31) mmol/L POC Base Excess (-9-1.8) samara/L ABG pH (7.35-7.45) ABG pH (Temp Correct) (7.35-7.45) ABG pCO2 (35-46) mmHg ABG pCO2 (Temp Corrct (35-46) mmHg ABG pO2 (80-95) mmHg POC ABG pO2 at Pt Temp ABG HCO3 (19-24) mmol/L POC ABG O2 Sat (90-95) % ABG O2 Saturation (90-95) % ABG Base Excess (-9-1.8) mEq/L Jay Test (Pos) VBG pH (7.36-7.41) VBG pCO2 (38-50) mmHg VBG pO2 mmHg VBG HCO3 mmol/L VBG O2 Saturation % VBG Base Excess mEq/L Oxygen Given O2 Delivery Device POC O2 Rate Minute Ventilation POC FiO2 % Tidal Volume PEEP POC Sodium (135-144) mmol/L Sodium (136-145) mmol/L POC Potassium (3.3-5.0) mmol/L Potassium (3.5-5.1) mmol/L Chloride (98-107) mmol/L Carbon Dioxide (21-32) mmol/L Anion Gap (3-11) BUN (6-23) mg/dl Creatinine (0.6-1.2) mg/dl Est Cr Clr Drug Dosing ml/min eGFR BUN/Creatinine Ratio (10-20) Glucose (70-99(Fasting)) mg/dl POC Glucose 205 H 166 H (70-99) mg/dl POC Glucose (other) 163 H (70-99) mg/dl Lactate (0.4-2.0) mmol/L Calcium (8.6-10.3) mg/dl Phosphorus (2.5-4.9) mg/dl Magnesium (1.7-2.4) mg/dl Total Bilirubin (0.2-1.0) mg/dl Direct Bilirubin (0-0.2) mg/dl AST (13-39) U/L ALT (7-52) U/L Alkaline Phosphatase (34-104) U/L Lactate Dehydrogenase (86-244) U/L Total Creatine Kinase (26-192) U/L Troponin I High Sens (0-14) pg/ml C-Reactive Protein (0-0.5) mg/dl B-Natriuretic Peptide (0-100) pg/ml Total Protein (6.0-8.3) gm/dl Albumin (3.4-5.0) gm/dl Globulin (2.5-4.0) gm/dl Albumin/Globulin Ratio (0.9-2) Procalcitonin (0-0.5) ng/ml TSH (0.300-4.500) uIu/ml Urine Color Urine Appearance (Clear) Urine pH (4.5-7.5) Ur Specific Beecher (1.000-1.030) Urine Protein (Negative) Urine Glucose (UA) (Negative) Urine Ketones (Negative) Urine Blood (Negative) Urine Nitrite (Negative) Urine Bilirubin (Negative) Urine Urobilinogen (Negative) Ur Leukocyte Esterase (Negative) Urine WBC (Auto) (0-5) /hpf Urine RBC (Auto) (0-2) /hpf U Hyaline Cast (Auto) (0-2) /lpf U Epithel Cells (Auto) (0-2) /hpf Urine Bacteria (Auto) (None Seen) Urine Yeast (None Prsent) Urine Osmolality (500-800) mOsm/kg Ur Random Creatinine mg/dl Ur Random Sodium mmol/L Ur Random Potassium mmol/L Ur Random Chloride mmol/L Nasal Screen MRSA (PCR) (Negative) Stool Occult Bld Scrn (Negative) Stl C. diff Tox B Gene (Neg) Adenovirus (PCR) (NotDetected) B. pertussis DNA (PCR) (NotDetected) B.parapertussis DNA PCR (NotDetected) C. pneumoniae DNA (PCR) (NotDetected) Coronavirus OC43 (PCR) (NotDetected) Coronavirus HKU1 (PCR) (NotDetected) Coronavirus 229E (PCR) (NotDetected) SARS-CoV-2 (PCR) (Negative) Coronavirus NL63 (PCR) (NotDetected) Human Metapneumovir PCR (NotDetected) Influenza Type A (PCR) (Neg) Influenza Type B (PCR) (Neg) Urine Legionella Ag M. pneumoniae (PCR) (NotDetected) Parainfluenza 1 (PCR) (NotDetected) Parainfluenza 2 (PCR) (NotDetected) Parainfluenza 3 (PCR) (NotDetected) Parainfluenza 4 (PCR) (NotDetected) RSV (RT-PCR) (Neg) RSV (PCR) (NotDetected) Entero/Rhino (PCR) (NotDetected) Ref Lab Test Result Blood Type Blood Type Recheck Antibody Screen Crossmatch 03/08/24 03/08/24 03/08/24 Range/Units 09:00 03:48 03:36 WBC 7.25 (4.8-10.8) K/ul RBC 3.67 L (4.20-5.40) M/uL Hgb 11.3 L D (12.0-16.0) g/dl POC Hgb 10.5 L (12.0-16.0) g/dl Hct 32.9 L (37.0-47.0) % POC Hct 31 L (37-47) % MCV 89.6 (80.0-100.0) fL MCH 30.8 (25.0-34.0) pg MCHC 34.3 (32.0-36.0) g/dL RDW Std Deviation 49.1 H (36.4-46.3) fL RDW Coeff of Ailyn 14.9 H (11.5-14.5) % Plt Count 81 L (130-400) K/uL MPV 12.4 (9.4-12.4) fL Immature Gran % (Auto) 1.1 % Neut % (Auto) 93.9 % Lymph % (Auto) 3.7 % Madison % (Auto) 1.2 % Eos % (Auto) 0.0 % Baso % (Auto) 0.1 % Neut # (Auto) 6.80 H (1.40-6.50) K/uL Lymph # (Auto) 0.27 L (1.20-3.40) K/uL Madison # (Auto) 0.09 L (0.11-0.59) K/uL Eos # (Auto) 0.00 (0.00-0.50) K/uL Baso # (Auto) 0.01 (0.00-0.20) K/uL Immature Gran # (Auto) 0.08 (0.01-0.20) K/uL Absolute Nucleated RBC 0.03 (0.00-0.12) K/uL Nucleated RBC % (auto) 0.4 % RBC Morphology Unremarkable Polychromasia Poikilocytosis Acanthocytes (Spur) PT (9.0-12.0) Seconds INR (0.9-1.1) APTT (21-31) Seconds PTT Ratio Fibrinogen (184-400) mg/dl Factor VIII Activity (55 - 145) % Sample Site Art Line POC pH 7.33 L (7.35-7.45) POC pCO2 31 L (35-46) mmHg POC pO2 73 L (80-95) mmHg POC HCO3 16 L (19-24) samara/L POC Total CO2 17 L (24-31) mmol/L POC Base Excess -9.0 (-9-1.8) samara/L ABG pH (7.35-7.45) ABG pH (Temp Correct) 7.324 L (7.35-7.45) ABG pCO2 (35-46) mmHg ABG pCO2 (Temp Corrct 32 L (35-46) mmHg ABG pO2 (80-95) mmHg POC ABG pO2 at Pt Temp 76 ABG HCO3 (19-24) mmol/L POC ABG O2 Sat 94.0 (90-95) % ABG O2 Saturation (90-95) % ABG Base Excess (-9-1.8) mEq/L Jay Test NA (Pos) VBG pH (7.36-7.41) VBG pCO2 (38-50) mmHg VBG pO2 mmHg VBG HCO3 mmol/L VBG O2 Saturation % VBG Base Excess mEq/L Oxygen Given O2 Delivery Device Ventilator POC O2 Rate 20 Minute Ventilation POC FiO2 30 % Tidal Volume 400 PEEP 8 POC Sodium 142 (135-144) mmol/L Sodium (136-145) mmol/L POC Potassium 4.7 (3.3-5.0) mmol/L Potassium (3.5-5.1) mmol/L Chloride (98-107) mmol/L Carbon Dioxide (21-32) mmol/L Anion Gap (3-11) BUN (6-23) mg/dl Creatinine (0.6-1.2) mg/dl Est Cr Clr Drug Dosing ml/min eGFR BUN/Creatinine Ratio (10-20) Glucose (70-99(Fasting)) mg/dl POC Glucose (70-99) mg/dl POC Glucose (other) (70-99) mg/dl Lactate (0.4-2.0) mmol/L Calcium (8.6-10.3) mg/dl Phosphorus (2.5-4.9) mg/dl Magnesium (1.7-2.4) mg/dl Total Bilirubin (0.2-1.0) mg/dl Direct Bilirubin (0-0.2) mg/dl AST (13-39) U/L ALT (7-52) U/L Alkaline Phosphatase (34-104) U/L Lactate Dehydrogenase (86-244) U/L Total Creatine Kinase (26-192) U/L Troponin I High Sens (0-14) pg/ml C-Reactive Protein (0-0.5) mg/dl B-Natriuretic Peptide (0-100) pg/ml Total Protein (6.0-8.3) gm/dl Albumin (3.4-5.0) gm/dl Globulin (2.5-4.0) gm/dl Albumin/Globulin Ratio (0.9-2) Procalcitonin (0-0.5) ng/ml TSH (0.300-4.500) uIu/ml Urine Color Urine Appearance (Clear) Urine pH (4.5-7.5) Ur Specific Beecher (1.000-1.030) Urine Protein (Negative) Urine Glucose (UA) (Negative) Urine Ketones (Negative) Urine Blood (Negative) Urine Nitrite (Negative) Urine Bilirubin (Negative) Urine Urobilinogen (Negative) Ur Leukocyte Esterase (Negative) Urine WBC (Auto) (0-5) /hpf Urine RBC (Auto) (0-2) /hpf U Hyaline Cast (Auto) (0-2) /lpf U Epithel Cells (Auto) (0-2) /hpf Urine Bacteria (Auto) (None Seen) Urine Yeast (None Prsent) Urine Osmolality 753 (500-800) mOsm/kg Ur Random Creatinine 47.0 mg/dl Ur Random Sodium 128 mmol/L Ur Random Potassium 73.3 mmol/L Ur Random Chloride 190 mmol/L Nasal Screen MRSA (PCR) (Negative) Stool Occult Bld Scrn (Negative) Stl C. diff Tox B Gene (Neg) Adenovirus (PCR) (NotDetected) B. pertussis DNA (PCR) (NotDetected) B.parapertussis DNA PCR (NotDetected) C. pneumoniae DNA (PCR) (NotDetected) Coronavirus OC43 (PCR) (NotDetected) Coronavirus HKU1 (PCR) (NotDetected) Coronavirus 229E (PCR) (NotDetected) SARS-CoV-2 (PCR) (Negative) Coronavirus NL63 (PCR) (NotDetected) Human Metapneumovir PCR (NotDetected) Influenza Type A (PCR) (Neg) Influenza Type B (PCR) (Neg) Urine Legionella Ag M. pneumoniae (PCR) (NotDetected) Parainfluenza 1 (PCR) (NotDetected) Parainfluenza 2 (PCR) (NotDetected) Parainfluenza 3 (PCR) (NotDetected) Parainfluenza 4 (PCR) (NotDetected) RSV (RT-PCR) (Neg) RSV (PCR) (NotDetected) Entero/Rhino (PCR) (NotDetected) Ref Lab Test Result Blood Type Blood Type Recheck Antibody Screen Crossmatch 03/08/24 03/07/24 03/07/24 Range/Units 03:34 23:58 16:10 WBC (4.8-10.8) K/ul RBC (4.20-5.40) M/uL Hgb (12.0-16.0) g/dl POC Hgb (12.0-16.0) g/dl Hct (37.0-47.0) % POC Hct (37-47) % MCV (80.0-100.0) fL MCH (25.0-34.0) pg MCHC (32.0-36.0) g/dL RDW Std Deviation (36.4-46.3) fL RDW Coeff of Ailyn (11.5-14.5) % Plt Count (130-400) K/uL MPV (9.4-12.4) fL Immature Gran % (Auto) % Neut % (Auto) % Lymph % (Auto) % [place] % (Auto) % Eos % (Auto) % Baso % (Auto) % Neut # (Auto) (1.40-6.50) K/uL Lymph # (Auto) (1.20-3.40) K/uL [place] # (Auto) (0.11-0.59) K/uL Eos # (Auto) (0.00-0.50) K/uL Baso # (Auto) (0.00-0.20) K/uL Immature Gran # (Auto) (0.01-0.20) K/uL Absolute Nucleated RBC (0.00-0.12) K/uL Nucleated RBC % (auto) % RBC Morphology Polychromasia Poikilocytosis Acanthocytes (Spur) PT (9.0-12.0) Seconds INR (0.9-1.1) APTT (21-31) Seconds PTT Ratio Fibrinogen (184-400) mg/dl Factor VIII Activity (55 - 145) % Sample Site POC pH (7.35-7.45) POC pCO2 (35-46) mmHg POC pO2 (80-95) mmHg POC HCO3 (19-24) samara/L POC Total CO2 (24-31) mmol/L POC Base Excess (-9-1.8) samara/L ABG pH (7.35-7.45) ABG pH (Temp Correct) (7.35-7.45) ABG pCO2 (35-46) mmHg ABG pCO2 (Temp Corrct (35-46) mmHg ABG pO2 (80-95) mmHg POC ABG pO2 at Pt Temp ABG HCO3 (19-24) mmol/L POC ABG O2 Sat (90-95) % ABG O2 Saturation (90-95) % ABG Base Excess (-9-1.8) mEq/L Jay Test (Pos) VBG pH (7.36-7.41) VBG pCO2 (38-50) mmHg VBG pO2 mmHg VBG HCO3 mmol/L VBG O2 Saturation % VBG Base Excess mEq/L Oxygen Given O2 Delivery Device POC O2 Rate Minute Ventilation POC FiO2 % Tidal Volume PEEP POC Sodium (135-144) mmol/L Sodium 141 (136-145) mmol/L POC Potassium (3.3-5.0) mmol/L Potassium 4.9 (3.5-5.1) mmol/L Chloride 117 H (98-107) mmol/L Carbon Dioxide 17 L (21-32) mmol/L Anion Gap 7 (3-11) BUN 26 H (6-23) mg/dl Creatinine 0.60 (0.6-1.2) mg/dl Est Cr Clr Drug Dosing 74.3 ml/min eGFR 92.39 BUN/Creatinine Ratio 43.3 H (10-20) Glucose 171 H (70-99(Fasting)) mg/dl POC Glucose 140 H 108 H (70-99) mg/dl POC Glucose (other) (70-99) mg/dl Lactate (0.4-2.0) mmol/L Calcium 7.9 L (8.6-10.3) mg/dl Phosphorus 2.7 (2.5-4.9) mg/dl Magnesium 1.9 (1.7-2.4) mg/dl Total Bilirubin (0.2-1.0) mg/dl Direct Bilirubin (0-0.2) mg/dl AST (13-39) U/L ALT (7-52) U/L Alkaline Phosphatase (34-104) U/L Lactate Dehydrogenase (86-244) U/L Total Creatine Kinase (26-192) U/L Troponin I High Sens (0-14) pg/ml C-Reactive Protein 13.31 H (0-0.5) mg/dl B-Natriuretic Peptide (0-100) pg/ml Total Protein (6.0-8.3) gm/dl Albumin (3.4-5.0) gm/dl Globulin (2.5-4.0) gm/dl Albumin/Globulin Ratio (0.9-2) Procalcitonin (0-0.5) ng/ml TSH (0.300-4.500) uIu/ml Urine Color Urine Appearance (Clear) Urine pH (4.5-7.5) Ur Specific Beecher (1.000-1.030) Urine Protein (Negative) Urine Glucose (UA) (Negative) Urine Ketones (Negative) Urine Blood (Negative) Urine Nitrite (Negative) Urine Bilirubin (Negative) Urine Urobilinogen (Negative) Ur Leukocyte Esterase (Negative) Urine WBC (Auto) (0-5) /hpf Urine RBC (Auto) (0-2) /hpf U Hyaline Cast (Auto) (0-2) /lpf U Epithel Cells (Auto) (0-2) /hpf Urine Bacteria (Auto) (None Seen) Urine Yeast (None Prsent) Urine Osmolality (500-800) mOsm/kg Ur Random Creatinine mg/dl Ur Random Sodium mmol/L Ur Random Potassium mmol/L Ur Random Chloride mmol/L Nasal Screen MRSA (PCR) (Negative) Stool Occult Bld Scrn (Negative) Stl C. diff Tox B Gene (Neg) Adenovirus (PCR) (NotDetected) B. pertussis DNA (PCR) (NotDetected) B.parapertussis DNA PCR (NotDetected) C. pneumoniae DNA (PCR) (NotDetected) Coronavirus OC43 (PCR) (NotDetected) Coronavirus HKU1 (PCR) (NotDetected) Coronavirus 229E (PCR) (NotDetected) SARS-CoV-2 (PCR) (Negative) Coronavirus NL63 (PCR) (NotDetected) Human Metapneumovir PCR (NotDetected) Influenza Type A (PCR) (Neg) Influenza Type B (PCR) (Neg) Urine Legionella Ag M. pneumoniae (PCR) (NotDetected) Parainfluenza 1 (PCR) (NotDetected) Parainfluenza 2 (PCR) (NotDetected) Parainfluenza 3 (PCR) (NotDetected) Parainfluenza 4 (PCR) (NotDetected) RSV (RT-PCR) (Neg) RSV (PCR) (NotDetected) Entero/Rhino (PCR) (NotDetected) Ref Lab Test Result Blood Type Blood Type Recheck Antibody Screen Crossmatch 03/07/24 03/07/24 03/07/24 Range/Units 14:58 12:39 07:56 WBC (4.8-10.8) K/ul RBC (4.20-5.40) M/uL Hgb (12.0-16.0) g/dl POC Hgb 6.8 L* (12.0-16.0) g/dl Hct (37.0-47.0) % POC Hct 20 L* (37-47) % MCV (80.0-100.0) fL MCH (25.0-34.0) pg MCHC (32.0-36.0) g/dL RDW Std Deviation (36.4-46.3) fL RDW Coeff of Ailyn (11.5-14.5) % Plt Count (130-400) K/uL MPV (9.4-12.4) fL Immature Gran % (Auto) % Neut % (Auto) % Lymph % (Auto) % Madison % (Auto) % Eos % (Auto) % Baso % (Auto) % Neut # (Auto) (1.40-6.50) K/uL Lymph # (Auto) (1.20-3.40) K/uL Madison # (Auto) (0.11-0.59) K/uL Eos # (Auto) (0.00-0.50) K/uL Baso # (Auto) (0.00-0.20) K/uL Immature Gran # (Auto) (0.01-0.20) K/uL Absolute Nucleated RBC (0.00-0.12) K/uL Nucleated RBC % (auto) % RBC Morphology Polychromasia Poikilocytosis Acanthocytes (Spur) PT (9.0-12.0) Seconds INR (0.9-1.1) APTT (21-31) Seconds PTT Ratio Fibrinogen 833 H (184-400) mg/dl Factor VIII Activity See Scanned Report (55 - 145) % Sample Site Art Line POC pH 7.42 (7.35-7.45) POC pCO2 24 L (35-46) mmHg POC pO2 88 (80-95) mmHg POC HCO3 16 L (19-24) samara/L POC Total CO2 16 L (24-31) mmol/L POC Base Excess -9.0 (-9-1.8) samara/L ABG pH (7.35-7.45) ABG pH (Temp Correct) 7.416 (7.35-7.45) ABG pCO2 (35-46) mmHg ABG pCO2 (Temp Corrct 24 L (35-46) mmHg ABG pO2 (80-95) mmHg POC ABG pO2 at Pt Temp 88 ABG HCO3 (19-24) mmol/L POC ABG O2 Sat 97.0 H (90-95) % ABG O2 Saturation (90-95) % ABG Base Excess (-9-1.8) mEq/L Jay Test NA (Pos) VBG pH (7.36-7.41) VBG pCO2 (38-50) mmHg VBG pO2 mmHg VBG HCO3 mmol/L VBG O2 Saturation % VBG Base Excess mEq/L Oxygen Given O2 Delivery Device POC O2 Rate Minute Ventilation POC FiO2 % Tidal Volume PEEP POC Sodium 146 H (135-144) mmol/L Sodium (136-145) mmol/L POC Potassium 4.1 (3.3-5.0) mmol/L Potassium (3.5-5.1) mmol/L Chloride (98-107) mmol/L Carbon Dioxide (21-32) mmol/L Anion Gap (3-11) BUN (6-23) mg/dl Creatinine (0.6-1.2) mg/dl Est Cr Clr Drug Dosing ml/min eGFR BUN/Creatinine Ratio (10-20) Glucose (70-99(Fasting)) mg/dl POC Glucose 124 H (70-99) mg/dl POC Glucose (other) (70-99) mg/dl Lactate (0.4-2.0) mmol/L Calcium (8.6-10.3) mg/dl Phosphorus (2.5-4.9) mg/dl Magnesium (1.7-2.4) mg/dl Total Bilirubin 0.4 (0.2-1.0) mg/dl Direct Bilirubin 0.2 (0-0.2) mg/dl AST 128 H (13-39) U/L ALT 12 (7-52) U/L Alkaline Phosphatase 86 (34-104) U/L Lactate Dehydrogenase 596 H (86-244) U/L Total Creatine Kinase (26-192) U/L Troponin I High Sens (0-14) pg/ml C-Reactive Protein (0-0.5) mg/dl B-Natriuretic Peptide (0-100) pg/ml Total Protein 5.3 L (6.0-8.3) gm/dl Albumin 2.7 L (3.4-5.0) gm/dl Globulin (2.5-4.0) gm/dl Albumin/Globulin Ratio (0.9-2) Procalcitonin (0-0.5) ng/ml TSH (0.300-4.500) uIu/ml Urine Color Urine Appearance (Clear) Urine pH (4.5-7.5) Ur Specific Beecher (1.000-1.030) Urine Protein (Negative) Urine Glucose (UA) (Negative) Urine Ketones (Negative) Urine Blood (Negative) Urine Nitrite (Negative) Urine Bilirubin (Negative) Urine Urobilinogen (Negative) Ur Leukocyte Esterase (Negative) Urine WBC (Auto) (0-5) /hpf Urine RBC (Auto) (0-2) /hpf U Hyaline Cast (Auto) (0-2) /lpf U Epithel Cells (Auto) (0-2) /hpf Urine Bacteria (Auto) (None Seen) Urine Yeast (None Prsent) Urine Osmolality (500-800) mOsm/kg Ur Random Creatinine mg/dl Ur Random Sodium mmol/L Ur Random Potassium mmol/L Ur Random Chloride mmol/L Nasal Screen MRSA (PCR) (Negative) Stool Occult Bld Scrn (Negative) Stl C. diff Tox B Gene (Neg) Adenovirus (PCR) (NotDetected) B. pertussis DNA (PCR) (NotDetected) B.parapertussis DNA PCR (NotDetected) C. pneumoniae DNA (PCR) (NotDetected) Coronavirus OC43 (PCR) (NotDetected) Coronavirus HKU1 (PCR) (NotDetected) Coronavirus 229E (PCR) (NotDetected) SARS-CoV-2 (PCR) (Negative) Coronavirus NL63 (PCR) (NotDetected) Human Metapneumovir PCR (NotDetected) Influenza Type A (PCR) (Neg) Influenza Type B (PCR) (Neg) Urine Legionella Ag M. pneumoniae (PCR) (NotDetected) Parainfluenza 1 (PCR) (NotDetected) Parainfluenza 2 (PCR) (NotDetected) Parainfluenza 3 (PCR) (NotDetected) Parainfluenza 4 (PCR) (NotDetected) RSV (RT-PCR) (Neg) RSV (PCR) (NotDetected) Entero/Rhino (PCR) (NotDetected) Ref Lab Test Result Blood Type Blood Type Recheck Antibody Screen Crossmatch 03/07/24 03/07/24 03/07/24 Range/Units 07:34 04:42 04:34 WBC 5.96 (4.8-10.8) K/ul RBC 2.28 L (4.20-5.40) M/uL Hgb 7.0 L (12.0-16.0) g/dl POC Hgb (12.0-16.0) g/dl Hct 21.4 L (37.0-47.0) % POC Hct (37-47) % MCV 93.9 (80.0-100.0) fL MCH 30.7 (25.0-34.0) pg MCHC 32.7 (32.0-36.0) g/dL RDW Std Deviation 47.4 H (36.4-46.3) fL RDW Coeff of Ailyn 13.9 (11.5-14.5) % Plt Count 71 L (130-400) K/uL MPV 12.7 H (9.4-12.4) fL Immature Gran % (Auto) 0.7 % Neut % (Auto) 90.1 % Lymph % (Auto) 7.4 % Madison % (Auto) 1.8 % Eos % (Auto) 0.0 % Baso % (Auto) 0.0 % Neut # (Auto) 5.37 (1.40-6.50) K/uL Lymph # (Auto) 0.44 L (1.20-3.40) K/uL Madison # (Auto) 0.11 (0.11-0.59) K/uL Eos # (Auto) 0.00 (0.00-0.50) K/uL Baso # (Auto) 0.00 (0.00-0.20) K/uL Immature Gran # (Auto) 0.04 (0.01-0.20) K/uL Absolute Nucleated RBC 0.02 (0.00-0.12) K/uL Nucleated RBC % (auto) 0.3 % RBC Morphology Unremarkable Polychromasia Poikilocytosis Acanthocytes (Spur) PT (9.0-12.0) Seconds INR (0.9-1.1) APTT (21-31) Seconds PTT Ratio Fibrinogen (184-400) mg/dl Factor VIII Activity (55 - 145) % Sample Site POC pH (7.35-7.45) POC pCO2 (35-46) mmHg POC pO2 (80-95) mmHg POC HCO3 (19-24) samara/L POC Total CO2 (24-31) mmol/L POC Base Excess (-9-1.8) samara/L ABG pH (7.35-7.45) ABG pH (Temp Correct) (7.35-7.45) ABG pCO2 (35-46) mmHg ABG pCO2 (Temp Corrct (35-46) mmHg ABG pO2 (80-95) mmHg POC ABG pO2 at Pt Temp ABG HCO3 (19-24) mmol/L POC ABG O2 Sat (90-95) % ABG O2 Saturation (90-95) % ABG Base Excess (-9-1.8) mEq/L Jay Test (Pos) VBG pH (7.36-7.41) VBG pCO2 (38-50) mmHg VBG pO2 mmHg VBG HCO3 mmol/L VBG O2 Saturation % VBG Base Excess mEq/L Oxygen Given O2 Delivery Device POC O2 Rate Minute Ventilation POC FiO2 % Tidal Volume PEEP POC Sodium (135-144) mmol/L Sodium 144 (136-145) mmol/L POC Potassium (3.3-5.0) mmol/L Potassium 4.4 (3.5-5.1) mmol/L Chloride 121 H (98-107) mmol/L Carbon Dioxide 18 L (21-32) mmol/L Anion Gap 5 (3-11) BUN 28 H (6-23) mg/dl Creatinine 0.42 L (0.6-1.2) mg/dl Est Cr Clr Drug Dosing 106.6 ml/min eGFR 100.68 BUN/Creatinine Ratio 66.7 H (10-20) Glucose 166 H (70-99(Fasting)) mg/dl POC Glucose 148 H (70-99) mg/dl POC Glucose (other) (70-99) mg/dl Lactate (0.4-2.0) mmol/L Calcium 8.1 L (8.6-10.3) mg/dl Phosphorus 2.0 L D (2.5-4.9) mg/dl Magnesium 2.0 (1.7-2.4) mg/dl Total Bilirubin (0.2-1.0) mg/dl Direct Bilirubin (0-0.2) mg/dl AST (13-39) U/L ALT (7-52) U/L Alkaline Phosphatase (34-104) U/L Lactate Dehydrogenase (86-244) U/L Total Creatine Kinase (26-192) U/L Troponin I High Sens (0-14) pg/ml C-Reactive Protein 18.79 H (0-0.5) mg/dl B-Natriuretic Peptide (0-100) pg/ml Total Protein (6.0-8.3) gm/dl Albumin (3.4-5.0) gm/dl Globulin (2.5-4.0) gm/dl Albumin/Globulin Ratio (0.9-2) Procalcitonin (0-0.5) ng/ml TSH (0.300-4.500) uIu/ml Urine Color Urine Appearance (Clear) Urine pH (4.5-7.5) Ur Specific Beecher (1.000-1.030) Urine Protein (Negative) Urine Glucose (UA) (Negative) Urine Ketones (Negative) Urine Blood (Negative) Urine Nitrite (Negative) Urine Bilirubin (Negative) Urine Urobilinogen (Negative) Ur Leukocyte Esterase (Negative) Urine WBC (Auto) (0-5) /hpf Urine RBC (Auto) (0-2) /hpf U Hyaline Cast (Auto) (0-2) /lpf U Epithel Cells (Auto) (0-2) /hpf Urine Bacteria (Auto) (None Seen) Urine Yeast (None Prsent) Urine Osmolality (500-800) mOsm/kg Ur Random Creatinine mg/dl Ur Random Sodium mmol/L Ur Random Potassium mmol/L Ur Random Chloride mmol/L Nasal Screen MRSA (PCR) (Negative) Stool Occult Bld Scrn (Negative) Stl C. diff Tox B Gene (Neg) Adenovirus (PCR) (NotDetected) B. pertussis DNA (PCR) (NotDetected) B.parapertussis DNA PCR (NotDetected) C. pneumoniae DNA (PCR) (NotDetected) Coronavirus OC43 (PCR) (NotDetected) Coronavirus HKU1 (PCR) (NotDetected) Coronavirus 229E (PCR) (NotDetected) SARS-CoV-2 (PCR) (Negative) Coronavirus NL63 (PCR) (NotDetected) Human Metapneumovir PCR (NotDetected) Influenza Type A (PCR) (Neg) Influenza Type B (PCR) (Neg) Urine Legionella Ag M. pneumoniae (PCR) (NotDetected) Parainfluenza 1 (PCR) (NotDetected) Parainfluenza 2 (PCR) (NotDetected) Parainfluenza 3 (PCR) (NotDetected) Parainfluenza 4 (PCR) (NotDetected) RSV (RT-PCR) (Neg) RSV (PCR) (NotDetected) Entero/Rhino (PCR) (NotDetected) Ref Lab Test Result Blood Type Blood Type Recheck Antibody Screen Crossmatch 03/06/24 03/06/24 03/06/24 Range/Units Unknown 23:54 16:57 WBC (4.8-10.8) K/ul RBC (4.20-5.40) M/uL Hgb (12.0-16.0) g/dl POC Hgb (12.0-16.0) g/dl Hct (37.0-47.0) % POC Hct (37-47) % MCV (80.0-100.0) fL MCH (25.0-34.0) pg MCHC (32.0-36.0) g/dL RDW Std Deviation (36.4-46.3) fL RDW Coeff of Ailyn (11.5-14.5) % Plt Count (130-400) K/uL MPV (9.4-12.4) fL Immature Gran % (Auto) % Neut % (Auto) % Lymph % (Auto) % Madison % (Auto) % Eos % (Auto) % Baso % (Auto) % Neut # (Auto) (1.40-6.50) K/uL Lymph # (Auto) (1.20-3.40) K/uL Madison # (Auto) (0.11-0.59) K/uL Eos # (Auto) (0.00-0.50) K/uL Baso # (Auto) (0.00-0.20) K/uL Immature Gran # (Auto) (0.01-0.20) K/uL Absolute Nucleated RBC (0.00-0.12) K/uL Nucleated RBC % (auto) % RBC Morphology Polychromasia Poikilocytosis Acanthocytes (Spur) PT (9.0-12.0) Seconds INR (0.9-1.1) APTT (21-31) Seconds PTT Ratio Fibrinogen (184-400) mg/dl Factor VIII Activity (55 - 145) % Sample Site POC pH (7.35-7.45) POC pCO2 (35-46) mmHg POC pO2 (80-95) mmHg POC HCO3 (19-24) samara/L POC Total CO2 (24-31) mmol/L POC Base Excess (-9-1.8) samara/L ABG pH (7.35-7.45) ABG pH (Temp Correct) (7.35-7.45) ABG pCO2 (35-46) mmHg ABG pCO2 (Temp Corrct (35-46) mmHg ABG pO2 (80-95) mmHg POC ABG pO2 at Pt Temp ABG HCO3 (19-24) mmol/L POC ABG O2 Sat (90-95) % ABG O2 Saturation (90-95) % ABG Base Excess (-9-1.8) mEq/L Jay Test (Pos) VBG pH (7.36-7.41) VBG pCO2 (38-50) mmHg VBG pO2 mmHg VBG HCO3 mmol/L VBG O2 Saturation % VBG Base Excess mEq/L Oxygen Given O2 Delivery Device POC O2 Rate Minute Ventilation POC FiO2 % Tidal Volume PEEP POC Sodium (135-144) mmol/L Sodium (136-145) mmol/L POC Potassium (3.3-5.0) mmol/L Potassium (3.5-5.1) mmol/L Chloride (98-107) mmol/L Carbon Dioxide (21-32) mmol/L Anion Gap (3-11) BUN (6-23) mg/dl Creatinine (0.6-1.2) mg/dl Est Cr Clr Drug Dosing ml/min eGFR BUN/Creatinine Ratio (10-20) Glucose (70-99(Fasting)) mg/dl POC Glucose 173 H 150 H (70-99) mg/dl POC Glucose (other) (70-99) mg/dl Lactate (0.4-2.0) mmol/L Calcium (8.6-10.3) mg/dl Phosphorus (2.5-4.9) mg/dl Magnesium (1.7-2.4) mg/dl Total Bilirubin (0.2-1.0) mg/dl Direct Bilirubin (0-0.2) mg/dl AST (13-39) U/L ALT (7-52) U/L Alkaline Phosphatase (34-104) U/L Lactate Dehydrogenase (86-244) U/L Total Creatine Kinase (26-192) U/L Troponin I High Sens (0-14) pg/ml C-Reactive Protein (0-0.5) mg/dl B-Natriuretic Peptide (0-100) pg/ml Total Protein (6.0-8.3) gm/dl Albumin (3.4-5.0) gm/dl Globulin (2.5-4.0) gm/dl Albumin/Globulin Ratio (0.9-2) Procalcitonin (0-0.5) ng/ml TSH (0.300-4.500) uIu/ml Urine Color Urine Appearance (Clear) Urine pH (4.5-7.5) Ur Specific Beecher (1.000-1.030) Urine Protein (Negative) Urine Glucose (UA) (Negative) Urine Ketones (Negative) Urine Blood (Negative) Urine Nitrite (Negative) Urine Bilirubin (Negative) Urine Urobilinogen (Negative) Ur Leukocyte Esterase (Negative) Urine WBC (Auto) (0-5) /hpf Urine RBC (Auto) (0-2) /hpf U Hyaline Cast (Auto) (0-2) /lpf U Epithel Cells (Auto) (0-2) /hpf Urine Bacteria (Auto) (None Seen) Urine Yeast (None Prsent) Urine Osmolality (500-800) mOsm/kg Ur Random Creatinine mg/dl Ur Random Sodium mmol/L Ur Random Potassium mmol/L Ur Random Chloride mmol/L Nasal Screen MRSA (PCR) (Negative) Stool Occult Bld Scrn (Negative) Stl C. diff Tox B Gene (Neg) Adenovirus (PCR) (NotDetected) B. pertussis DNA (PCR) (NotDetected) B.parapertussis DNA PCR (NotDetected) C. pneumoniae DNA (PCR) (NotDetected) Coronavirus OC43 (PCR) (NotDetected) Coronavirus HKU1 (PCR) (NotDetected) Coronavirus 229E (PCR) (NotDetected) SARS-CoV-2 (PCR) (Negative) Coronavirus NL63 (PCR) (NotDetected) Human Metapneumovir PCR (NotDetected) Influenza Type A (PCR) (Neg) Influenza Type B (PCR) (Neg) Urine Legionella Ag SEE NOTE M. pneumoniae (PCR) (NotDetected) Parainfluenza 1 (PCR) (NotDetected) Parainfluenza 2 (PCR) (NotDetected) Parainfluenza 3 (PCR) (NotDetected) Parainfluenza 4 (PCR) (NotDetected) RSV (RT-PCR) (Neg) RSV (PCR) (NotDetected) Entero/Rhino (PCR) (NotDetected) Ref Lab Test Result Blood Type Blood Type Recheck Antibody Screen Crossmatch 03/06/24 03/06/24 03/06/24 Range/Units 16:12 14:48 11:57 WBC (4.8-10.8) K/ul RBC (4.20-5.40) M/uL Hgb 7.3 L (12.0-16.0) g/dl POC Hgb 6.5 L* (12.0-16.0) g/dl Hct 21.3 L (37.0-47.0) % POC Hct 19 L* (37-47) % MCV (80.0-100.0) fL MCH (25.0-34.0) pg MCHC (32.0-36.0) g/dL RDW Std Deviation (36.4-46.3) fL RDW Coeff of Ailyn (11.5-14.5) % Plt Count (130-400) K/uL MPV (9.4-12.4) fL Immature Gran % (Auto) % Neut % (Auto) % Lymph % (Auto) % Madison % (Auto) % Eos % (Auto) % Baso % (Auto) % Neut # (Auto) (1.40-6.50) K/uL Lymph # (Auto) (1.20-3.40) K/uL Madison # (Auto) (0.11-0.59) K/uL Eos # (Auto) (0.00-0.50) K/uL Baso # (Auto) (0.00-0.20) K/uL Immature Gran # (Auto) (0.01-0.20) K/uL Absolute Nucleated RBC (0.00-0.12) K/uL Nucleated RBC % (auto) % RBC Morphology Polychromasia Poikilocytosis Acanthocytes (Spur) PT (9.0-12.0) Seconds INR (0.9-1.1) APTT (21-31) Seconds PTT Ratio Fibrinogen (184-400) mg/dl Factor VIII Activity (55 - 145) % Sample Site Art Line POC pH 7.42 (7.35-7.45) POC pCO2 26 L (35-46) mmHg POC pO2 151 H (80-95) mmHg POC HCO3 17 L (19-24) samara/L POC Total CO2 17 L (24-31) mmol/L POC Base Excess -8.0 (-9-1.8) samaar/L ABG pH (7.35-7.45) ABG pH (Temp Correct) 7.414 (7.35-7.45) ABG pCO2 (35-46) mmHg ABG pCO2 (Temp Corrct 26 L (35-46) mmHg ABG pO2 (80-95) mmHg POC ABG pO2 at Pt Temp 152 ABG HCO3 (19-24) mmol/L POC ABG O2 Sat 99.0 H (90-95) % ABG O2 Saturation (90-95) % ABG Base Excess (-9-1.8) mEq/L Jay Test NA (Pos) VBG pH (7.36-7.41) VBG pCO2 (38-50) mmHg VBG pO2 mmHg VBG HCO3 mmol/L VBG O2 Saturation % VBG Base Excess mEq/L Oxygen Given O2 Delivery Device Ventilator POC O2 Rate 28 Minute Ventilation 13.6 POC FiO2 45 % Tidal Volume 450 PEEP 8 POC Sodium 147 H (135-144) mmol/L Sodium (136-145) mmol/L POC Potassium 3.9 (3.3-5.0) mmol/L Potassium (3.5-5.1) mmol/L Chloride (98-107) mmol/L Carbon Dioxide (21-32) mmol/L Anion Gap (3-11) BUN (6-23) mg/dl Creatinine (0.6-1.2) mg/dl Est Cr Clr Drug Dosing ml/min eGFR BUN/Creatinine Ratio (10-20) Glucose (70-99(Fasting)) mg/dl POC Glucose 183 H (70-99) mg/dl POC Glucose (other) (70-99) mg/dl Lactate (0.4-2.0) mmol/L Calcium (8.6-10.3) mg/dl Phosphorus (2.5-4.9) mg/dl Magnesium (1.7-2.4) mg/dl Total Bilirubin (0.2-1.0) mg/dl Direct Bilirubin (0-0.2) mg/dl AST (13-39) U/L ALT (7-52) U/L Alkaline Phosphatase (34-104) U/L Lactate Dehydrogenase (86-244) U/L Total Creatine Kinase (26-192) U/L Troponin I High Sens (0-14) pg/ml C-Reactive Protein (0-0.5) mg/dl B-Natriuretic Peptide (0-100) pg/ml Total Protein (6.0-8.3) gm/dl Albumin (3.4-5.0) gm/dl Globulin (2.5-4.0) gm/dl Albumin/Globulin Ratio (0.9-2) Procalcitonin (0-0.5) ng/ml TSH (0.300-4.500) uIu/ml Urine Color Urine Appearance (Clear) Urine pH (4.5-7.5) Ur Specific Beecher (1.000-1.030) Urine Protein (Negative) Urine Glucose (UA) (Negative) Urine Ketones (Negative) Urine Blood (Negative) Urine Nitrite (Negative) Urine Bilirubin (Negative) Urine Urobilinogen (Negative) Ur Leukocyte Esterase (Negative) Urine WBC (Auto) (0-5) /hpf Urine RBC (Auto) (0-2) /hpf U Hyaline Cast (Auto) (0-2) /lpf U Epithel Cells (Auto) (0-2) /hpf Urine Bacteria (Auto) (None Seen) Urine Yeast (None Prsent) Urine Osmolality (500-800) mOsm/kg Ur Random Creatinine mg/dl Ur Random Sodium mmol/L Ur Random Potassium mmol/L Ur Random Chloride mmol/L Nasal Screen MRSA (PCR) (Negative) Stool Occult Bld Scrn (Negative) Stl C. diff Tox B Gene (Neg) Adenovirus (PCR) (NotDetected) B. pertussis DNA (PCR) (NotDetected) B.parapertussis DNA PCR (NotDetected) C. pneumoniae DNA (PCR) (NotDetected) Coronavirus OC43 (PCR) (NotDetected) Coronavirus HKU1 (PCR) (NotDetected) Coronavirus 229E (PCR) (NotDetected) SARS-CoV-2 (PCR) (Negative) Coronavirus NL63 (PCR) (NotDetected) Human Metapneumovir PCR (NotDetected) Influenza Type A (PCR) (Neg) Influenza Type B (PCR) (Neg) Urine Legionella Ag M. pneumoniae (PCR) (NotDetected) Parainfluenza 1 (PCR) (NotDetected) Parainfluenza 2 (PCR) (NotDetected) Parainfluenza 3 (PCR) (NotDetected) Parainfluenza 4 (PCR) (NotDetected) RSV (RT-PCR) (Neg) RSV (PCR) (NotDetected) Entero/Rhino (PCR) (NotDetected) Ref Lab Test Result Blood Type Blood Type Recheck A Positive Antibody Screen Crossmatch 03/06/24 03/06/24 03/06/24 Range/Units 10:11 08:31 06:44 WBC (4.8-10.8) K/ul RBC (4.20-5.40) M/uL Hgb (12.0-16.0) g/dl POC Hgb (12.0-16.0) g/dl Hct (37.0-47.0) % POC Hct (37-47) % MCV (80.0-100.0) fL MCH (25.0-34.0) pg MCHC (32.0-36.0) g/dL RDW Std Deviation (36.4-46.3) fL RDW Coeff of Ailyn (11.5-14.5) % Plt Count (130-400) K/uL MPV (9.4-12.4) fL Immature Gran % (Auto) % Neut % (Auto) % Lymph % (Auto) % Madison % (Auto) % Eos % (Auto) % Baso % (Auto) % Neut # (Auto) (1.40-6.50) K/uL Lymph # (Auto) (1.20-3.40) K/uL Madison # (Auto) (0.11-0.59) K/uL Eos # (Auto) (0.00-0.50) K/uL Baso # (Auto) (0.00-0.20) K/uL Immature Gran # (Auto) (0.01-0.20) K/uL Absolute Nucleated RBC (0.00-0.12) K/uL Nucleated RBC % (auto) % RBC Morphology Polychromasia Poikilocytosis Acanthocytes (Spur) PT (9.0-12.0) Seconds INR (0.9-1.1) APTT (21-31) Seconds PTT Ratio Fibrinogen (184-400) mg/dl Factor VIII Activity (55 - 145) % Sample Site POC pH (7.35-7.45) POC pCO2 (35-46) mmHg POC pO2 (80-95) mmHg POC HCO3 (19-24) samara/L POC Total CO2 (24-31) mmol/L POC Base Excess (-9-1.8) samara/L ABG pH (7.35-7.45) ABG pH (Temp Correct) (7.35-7.45) ABG pCO2 (35-46) mmHg ABG pCO2 (Temp Corrct (35-46) mmHg ABG pO2 (80-95) mmHg POC ABG pO2 at Pt Temp ABG HCO3 (19-24) mmol/L POC ABG O2 Sat (90-95) % ABG O2 Saturation (90-95) % ABG Base Excess (-9-1.8) mEq/L Jay Test (Pos) VBG pH (7.36-7.41) VBG pCO2 (38-50) mmHg VBG pO2 mmHg VBG HCO3 mmol/L VBG O2 Saturation % VBG Base Excess mEq/L Oxygen Given O2 Delivery Device POC O2 Rate Minute Ventilation POC FiO2 % Tidal Volume PEEP POC Sodium (135-144) mmol/L Sodium (136-145) mmol/L POC Potassium (3.3-5.0) mmol/L Potassium (3.5-5.1) mmol/L Chloride (98-107) mmol/L Carbon Dioxide (21-32) mmol/L Anion Gap (3-11) BUN (6-23) mg/dl Creatinine (0.6-1.2) mg/dl Est Cr Clr Drug Dosing ml/min eGFR BUN/Creatinine Ratio (10-20) Glucose (70-99(Fasting)) mg/dl POC Glucose 181 H (70-99) mg/dl POC Glucose (other) (70-99) mg/dl Lactate 0.9 (0.4-2.0) mmol/L Calcium (8.6-10.3) mg/dl Phosphorus (2.5-4.9) mg/dl Magnesium (1.7-2.4) mg/dl Total Bilirubin (0.2-1.0) mg/dl Direct Bilirubin (0-0.2) mg/dl AST (13-39) U/L ALT (7-52) U/L Alkaline Phosphatase (34-104) U/L Lactate Dehydrogenase (86-244) U/L Total Creatine Kinase (26-192) U/L Troponin I High Sens (0-14) pg/ml C-Reactive Protein 23.45 H (0-0.5) mg/dl B-Natriuretic Peptide 4450 H (0-100) pg/ml Total Protein (6.0-8.3) gm/dl Albumin (3.4-5.0) gm/dl Globulin (2.5-4.0) gm/dl Albumin/Globulin Ratio (0.9-2) Procalcitonin (0-0.5) ng/ml TSH (0.300-4.500) uIu/ml Urine Color Urine Appearance (Clear) Urine pH (4.5-7.5) Ur Specific Beecher (1.000-1.030) Urine Protein (Negative) Urine Glucose (UA) (Negative) Urine Ketones (Negative) Urine Blood (Negative) Urine Nitrite (Negative) Urine Bilirubin (Negative) Urine Urobilinogen (Negative) Ur Leukocyte Esterase (Negative) Urine WBC (Auto) (0-5) /hpf Urine RBC (Auto) (0-2) /hpf U Hyaline Cast (Auto) (0-2) /lpf U Epithel Cells (Auto) (0-2) /hpf Urine Bacteria (Auto) (None Seen) Urine Yeast (None Prsent) Urine Osmolality (500-800) mOsm/kg Ur Random Creatinine mg/dl Ur Random Sodium mmol/L Ur Random Potassium mmol/L Ur Random Chloride mmol/L Nasal Screen MRSA (PCR) (Negative) Stool Occult Bld Scrn (Negative) Stl C. diff Tox B Gene (Neg) Adenovirus (PCR) (NotDetected) B. pertussis DNA (PCR) (NotDetected) B.parapertussis DNA PCR (NotDetected) C. pneumoniae DNA (PCR) (NotDetected) Coronavirus OC43 (PCR) (NotDetected) Coronavirus HKU1 (PCR) (NotDetected) Coronavirus 229E (PCR) (NotDetected) SARS-CoV-2 (PCR) (Negative) Coronavirus NL63 (PCR) (NotDetected) Human Metapneumovir PCR (NotDetected) Influenza Type A (PCR) (Neg) Influenza Type B (PCR) (Neg) Urine Legionella Ag M. pneumoniae (PCR) (NotDetected) Parainfluenza 1 (PCR) (NotDetected) Parainfluenza 2 (PCR) (NotDetected) Parainfluenza 3 (PCR) (NotDetected) Parainfluenza 4 (PCR) (NotDetected) RSV (RT-PCR) (Neg) RSV (PCR) (NotDetected) Entero/Rhino (PCR) (NotDetected) Ref Lab Test Result Blood Type Blood Type Recheck Antibody Screen Crossmatch 03/06/24 03/06/24 03/06/24 Range/Units 06:20 05:58 05:55 WBC (4.8-10.8) K/ul RBC (4.20-5.40) M/uL Hgb (12.0-16.0) g/dl POC Hgb 8.5 L (12.0-16.0) g/dl Hct (37.0-47.0) % POC Hct 25 L (37-47) % MCV (80.0-100.0) fL MCH (25.0-34.0) pg MCHC (32.0-36.0) g/dL RDW Std Deviation (36.4-46.3) fL RDW Coeff of Ailyn (11.5-14.5) % Plt Count (130-400) K/uL MPV (9.4-12.4) fL Immature Gran % (Auto) % Neut % (Auto) % Lymph % (Auto) % [place] % (Auto) % Eos % (Auto) % Baso % (Auto) % Neut # (Auto) (1.40-6.50) K/uL Lymph # (Auto) (1.20-3.40) K/uL [place] # (Auto) (0.11-0.59) K/uL Eos # (Auto) (0.00-0.50) K/uL Baso # (Auto) (0.00-0.20) K/uL Immature Gran # (Auto) (0.01-0.20) K/uL Absolute Nucleated RBC (0.00-0.12) K/uL Nucleated RBC % (auto) % RBC Morphology Polychromasia Poikilocytosis Acanthocytes (Spur) PT (9.0-12.0) Seconds INR (0.9-1.1) APTT (21-31) Seconds PTT Ratio Fibrinogen (184-400) mg/dl Factor VIII Activity (55 - 145) % Sample Site Art Line POC pH 7.30 L (7.35-7.45) POC pCO2 36 (35-46) mmHg POC pO2 120 H (80-95) mmHg POC HCO3 18 L (19-24) samara/L POC Total CO2 19 L (24-31) mmol/L POC Base Excess -9.0 (-9-1.8) samara/L ABG pH (7.35-7.45) ABG pH (Temp Correct) 7.280 L (7.35-7.45) ABG pCO2 (35-46) mmHg ABG pCO2 (Temp Corrct 38 (35-46) mmHg ABG pO2 (80-95) mmHg POC ABG pO2 at Pt Temp 128 ABG HCO3 (19-24) mmol/L POC ABG O2 Sat 98.0 H (90-95) % ABG O2 Saturation (90-95) % ABG Base Excess (-9-1.8) mEq/L Jay Test NA (Pos) VBG pH (7.36-7.41) VBG pCO2 (38-50) mmHg VBG pO2 mmHg VBG HCO3 mmol/L VBG O2 Saturation % VBG Base Excess mEq/L Oxygen Given O2 Delivery Device Ventilator POC O2 Rate 28 Minute Ventilation POC FiO2 60 % Tidal Volume 450 PEEP 8 POC Sodium 149 H (135-144) mmol/L Sodium 147 H (136-145) mmol/L POC Potassium 4.0 (3.3-5.0) mmol/L Potassium 4.2 (3.5-5.1) mmol/L Chloride (98-107) mmol/L Carbon Dioxide (21-32) mmol/L Anion Gap (3-11) BUN (6-23) mg/dl Creatinine (0.6-1.2) mg/dl Est Cr Clr Drug Dosing ml/min eGFR BUN/Creatinine Ratio (10-20) Glucose (70-99(Fasting)) mg/dl POC Glucose (70-99) mg/dl POC Glucose (other) (70-99) mg/dl Lactate 1.1 (0.4-2.0) mmol/L Calcium (8.6-10.3) mg/dl Phosphorus (2.5-4.9) mg/dl Magnesium 2.0 (1.7-2.4) mg/dl Total Bilirubin (0.2-1.0) mg/dl Direct Bilirubin (0-0.2) mg/dl AST 30 (13-39) U/L ALT (7-52) U/L Alkaline Phosphatase (34-104) U/L Lactate Dehydrogenase (86-244) U/L Total Creatine Kinase 90 (26-192) U/L Troponin I High Sens (0-14) pg/ml C-Reactive Protein (0-0.5) mg/dl B-Natriuretic Peptide (0-100) pg/ml Total Protein (6.0-8.3) gm/dl Albumin (3.4-5.0) gm/dl Globulin (2.5-4.0) gm/dl Albumin/Globulin Ratio (0.9-2) Procalcitonin (0-0.5) ng/ml TSH (0.300-4.500) uIu/ml Urine Color Urine Appearance (Clear) Urine pH (4.5-7.5) Ur Specific Beecher (1.000-1.030) Urine Protein (Negative) Urine Glucose (UA) (Negative) Urine Ketones (Negative) Urine Blood (Negative) Urine Nitrite (Negative) Urine Bilirubin (Negative) Urine Urobilinogen (Negative) Ur Leukocyte Esterase (Negative) Urine WBC (Auto) (0-5) /hpf Urine RBC (Auto) (0-2) /hpf U Hyaline Cast (Auto) (0-2) /lpf U Epithel Cells (Auto) (0-2) /hpf Urine Bacteria (Auto) (None Seen) Urine Yeast (None Prsent) Urine Osmolality (500-800) mOsm/kg Ur Random Creatinine mg/dl Ur Random Sodium mmol/L Ur Random Potassium mmol/L Ur Random Chloride mmol/L Nasal Screen MRSA (PCR) (Negative) Stool Occult Bld Scrn (Negative) Stl C. diff Tox B Gene (Neg) Adenovirus (PCR) (NotDetected) B. pertussis DNA (PCR) (NotDetected) B.parapertussis DNA PCR (NotDetected) C. pneumoniae DNA (PCR) (NotDetected) Coronavirus OC43 (PCR) (NotDetected) Coronavirus HKU1 (PCR) (NotDetected) Coronavirus 229E (PCR) (NotDetected) SARS-CoV-2 (PCR) (Negative) Coronavirus NL63 (PCR) (NotDetected) Human Metapneumovir PCR (NotDetected) Influenza Type A (PCR) (Neg) Influenza Type B (PCR) (Neg) Urine Legionella Ag M. pneumoniae (PCR) (NotDetected) Parainfluenza 1 (PCR) (NotDetected) Parainfluenza 2 (PCR) (NotDetected) Parainfluenza 3 (PCR) (NotDetected) Parainfluenza 4 (PCR) (NotDetected) RSV (RT-PCR) (Neg) RSV (PCR) (NotDetected) Entero/Rhino (PCR) (NotDetected) Ref Lab Test Result Blood Type Blood Type Recheck Antibody Screen Crossmatch 03/06/24 03/06/24 03/06/24 Range/Units 05:27 05:00 04:44 WBC (4.8-10.8) K/ul RBC (4.20-5.40) M/uL Hgb (12.0-16.0) g/dl POC Hgb 9.2 L (12.0-16.0) g/dl Hct (37.0-47.0) % POC Hct 27 L (37-47) % MCV (80.0-100.0) fL MCH (25.0-34.0) pg MCHC (32.0-36.0) g/dL RDW Std Deviation (36.4-46.3) fL RDW Coeff of Ailyn (11.5-14.5) % Plt Count (130-400) K/uL MPV (9.4-12.4) fL Immature Gran % (Auto) % Neut % (Auto) % Lymph % (Auto) % [place] % (Auto) % Eos % (Auto) % Baso % (Auto) % Neut # (Auto) (1.40-6.50) K/uL Lymph # (Auto) (1.20-3.40) K/uL [place] # (Auto) (0.11-0.59) K/uL Eos # (Auto) (0.00-0.50) K/uL Baso # (Auto) (0.00-0.20) K/uL Immature Gran # (Auto) (0.01-0.20) K/uL Absolute Nucleated RBC (0.00-0.12) K/uL Nucleated RBC % (auto) % RBC Morphology Polychromasia Poikilocytosis Acanthocytes (Spur) PT (9.0-12.0) Seconds INR (0.9-1.1) APTT (21-31) Seconds PTT Ratio Fibrinogen (184-400) mg/dl Factor VIII Activity (55 - 145) % Sample Site Art Line POC pH 7.16 L* (7.35-7.45) POC pCO2 48 H (35-46) mmHg POC pO2 244 H (80-95) mmHg POC HCO3 17 L (19-24) samara/L POC Total CO2 18 L (24-31) mmol/L POC Base Excess -12.0 L (-9-1.8) samara/L ABG pH (7.35-7.45) ABG pH (Temp Correct) 7.139 L* (7.35-7.45) ABG pCO2 (35-46) mmHg ABG pCO2 (Temp Corrct 51 H (35-46) mmHg ABG pO2 (80-95) mmHg POC ABG pO2 at Pt Temp 253 ABG HCO3 (19-24) mmol/L POC ABG O2 Sat 100.0 H (90-95) % ABG O2 Saturation (90-95) % ABG Base Excess (-9-1.8) mEq/L Jay Test NA (Pos) VBG pH (7.36-7.41) VBG pCO2 (38-50) mmHg VBG pO2 mmHg VBG HCO3 mmol/L VBG O2 Saturation % VBG Base Excess mEq/L Oxygen Given O2 Delivery Device Ventilator POC O2 Rate 28 Minute Ventilation POC FiO2 100 % Tidal Volume 325 PEEP 8 POC Sodium 148 H (135-144) mmol/L Sodium (136-145) mmol/L POC Potassium 4.6 (3.3-5.0) mmol/L Potassium (3.5-5.1) mmol/L Chloride (98-107) mmol/L Carbon Dioxide (21-32) mmol/L Anion Gap (3-11) BUN (6-23) mg/dl Creatinine (0.6-1.2) mg/dl Est Cr Clr Drug Dosing ml/min eGFR BUN/Creatinine Ratio (10-20) Glucose (70-99(Fasting)) mg/dl POC Glucose (70-99) mg/dl POC Glucose (other) (70-99) mg/dl Lactate 2.2 H* (0.4-2.0) mmol/L Calcium (8.6-10.3) mg/dl Phosphorus (2.5-4.9) mg/dl Magnesium (1.7-2.4) mg/dl Total Bilirubin (0.2-1.0) mg/dl Direct Bilirubin (0-0.2) mg/dl AST (13-39) U/L ALT (7-52) U/L Alkaline Phosphatase (34-104) U/L Lactate Dehydrogenase (86-244) U/L Total Creatine Kinase (26-192) U/L Troponin I High Sens (0-14) pg/ml C-Reactive Protein (0-0.5) mg/dl B-Natriuretic Peptide (0-100) pg/ml Total Protein (6.0-8.3) gm/dl Albumin (3.4-5.0) gm/dl Globulin (2.5-4.0) gm/dl Albumin/Globulin Ratio (0.9-2) Procalcitonin (0-0.5) ng/ml TSH (0.300-4.500) uIu/ml Urine Color Yellow Urine Appearance Cloudy A (Clear) Urine pH 5.5 (4.5-7.5) Ur Specific Beecher 1.041 H (1.000-1.030) Urine Protein 2+ H (Negative) Urine Glucose (UA) Trace H (Negative) Urine Ketones Trace H (Negative) Urine Blood Negative (Negative) Urine Nitrite Negative (Negative) Urine Bilirubin Negative (Negative) Urine Urobilinogen Negative (Negative) Ur Leukocyte Esterase Negative (Negative) Urine WBC (Auto) 0-5 (0-5) /hpf Urine RBC (Auto) 6-10 H (0-2) /hpf U Hyaline Cast (Auto) 6-10 H (0-2) /lpf U Epithel Cells (Auto) 3-5 H (0-2) /hpf Urine Bacteria (Auto) None Seen (None Seen) Urine Yeast (None Prsent) Urine Osmolality (500-800) mOsm/kg Ur Random Creatinine mg/dl Ur Random Sodium mmol/L Ur Random Potassium mmol/L Ur Random Chloride mmol/L Nasal Screen MRSA (PCR) (Negative) Stool Occult Bld Scrn (Negative) Stl C. diff Tox B Gene (Neg) Adenovirus (PCR) (NotDetected) B. pertussis DNA (PCR) (NotDetected) B.parapertussis DNA PCR (NotDetected) C. pneumoniae DNA (PCR) (NotDetected) Coronavirus OC43 (PCR) (NotDetected) Coronavirus HKU1 (PCR) (NotDetected) Coronavirus 229E (PCR) (NotDetected) SARS-CoV-2 (PCR) (Negative) Coronavirus NL63 (PCR) (NotDetected) Human Metapneumovir PCR (NotDetected) Influenza Type A (PCR) (Neg) Influenza Type B (PCR) (Neg) Urine Legionella Ag M. pneumoniae (PCR) (NotDetected) Parainfluenza 1 (PCR) (NotDetected) Parainfluenza 2 (PCR) (NotDetected) Parainfluenza 3 (PCR) (NotDetected) Parainfluenza 4 (PCR) (NotDetected) RSV (RT-PCR) (Neg) RSV (PCR) (NotDetected) Entero/Rhino (PCR) (NotDetected) Ref Lab Test Result Blood Type Blood Type Recheck Antibody Screen Crossmatch 03/06/24 03/06/24 03/06/24 Range/Units 04:33 00:30 00:04 WBC 9.77 9.23 (4.8-10.8) K/ul RBC 2.85 L 3.11 L (4.20-5.40) M/uL Hgb 8.8 L 9.6 L (12.0-16.0) g/dl POC Hgb (12.0-16.0) g/dl Hct 27.9 L 28.4 L (37.0-47.0) % POC Hct (37-47) % MCV 97.9 D 91.3 (80.0-100.0) fL MCH 30.9 30.9 (25.0-34.0) pg MCHC 31.5 L 33.8 (32.0-36.0) g/dL RDW Std Deviation 52.6 H 45.4 (36.4-46.3) fL RDW Coeff of Ailyn 14.7 H 13.7 (11.5-14.5) % Plt Count 116 L 113 L (130-400) K/uL MPV 12.9 H 12.0 (9.4-12.4) fL Immature Gran % (Auto) 0.7 0.8 % Neut % (Auto) 86.0 94.0 % Lymph % (Auto) 12.3 4.0 % [place] % (Auto) 0.9 1.1 % Eos % (Auto) 0.0 0.0 % Baso % (Auto) 0.1 0.1 % Neut # (Auto) 8.40 H 8.68 H (1.40-6.50) K/uL Lymph # (Auto) 1.20 0.37 L (1.20-3.40) K/uL [place] # (Auto) 0.09 L 0.10 L (0.11-0.59) K/uL Eos # (Auto) 0.00 0.00 (0.00-0.50) K/uL Baso # (Auto) 0.01 0.01 (0.00-0.20) K/uL Immature Gran # (Auto) 0.07 0.07 (0.01-0.20) K/uL Absolute Nucleated RBC (0.00-0.12) K/uL Nucleated RBC % (auto) % RBC Morphology Polychromasia 1+ 2+ Poikilocytosis Present Acanthocytes (Spur) 1+ PT (9.0-12.0) Seconds INR (0.9-1.1) APTT (21-31) Seconds PTT Ratio Fibrinogen (184-400) mg/dl Factor VIII Activity (55 - 145) % Sample Site POC pH (7.35-7.45) POC pCO2 (35-46) mmHg POC pO2 (80-95) mmHg POC HCO3 (19-24) samara/L POC Total CO2 (24-31) mmol/L POC Base Excess (-9-1.8) samara/L ABG pH 7.44 (7.35-7.45) ABG pH (Temp Correct) (7.35-7.45) ABG pCO2 20 L (35-46) mmHg ABG pCO2 (Temp Corrct (35-46) mmHg ABG pO2 84 (80-95) mmHg POC ABG pO2 at Pt Temp ABG HCO3 14 L (19-24) mmol/L POC ABG O2 Sat (90-95) % ABG O2 Saturation 97.6 H (90-95) % ABG Base Excess -8.2 (-9-1.8) mEq/L Jay Test Pos (Pos) VBG pH 7.18 L (7.36-7.41) VBG pCO2 43 (38-50) mmHg VBG pO2 39 mmHg VBG HCO3 16 mmol/L VBG O2 Saturation < 60.0 % VBG Base Excess -12.0 mEq/L Oxygen Given 9L O2 Delivery Device POC O2 Rate Minute Ventilation POC FiO2 % Tidal Volume PEEP POC Sodium (135-144) mmol/L Sodium TNP 142 (136-145) mmol/L POC Potassium (3.3-5.0) mmol/L Potassium TNP 4.7 (3.5-5.1) mmol/L Chloride 118 H 120 H (98-107) mmol/L Carbon Dioxide 15 L 15 L (21-32) mmol/L Anion Gap TNP 7 (3-11) BUN 20 19 (6-23) mg/dl Creatinine 0.50 L 0.47 L (0.6-1.2) mg/dl Est Cr Clr Drug Dosing 89.6 95.3 ml/min eGFR 96.54 97.99 BUN/Creatinine Ratio 40.0 H 40.4 H (10-20) Glucose 152 H 209 H (70-99(Fasting)) mg/dl POC Glucose (70-99) mg/dl POC Glucose (other) (70-99) mg/dl Lactate 1.7 (0.4-2.0) mmol/L Calcium 7.7 L 7.8 L (8.6-10.3) mg/dl Phosphorus 3.7 D 1.1 L* (2.5-4.9) mg/dl Magnesium TNP (1.7-2.4) mg/dl Total Bilirubin 0.7 0.6 (0.2-1.0) mg/dl Direct Bilirubin (0-0.2) mg/dl AST TNP 37 (13-39) U/L ALT 19 12 (7-52) U/L Alkaline Phosphatase 79 89 (34-104) U/L Lactate Dehydrogenase (86-244) U/L Total Creatine Kinase (26-192) U/L Troponin I High Sens (0-14) pg/ml C-Reactive Protein 27.67 H (0-0.5) mg/dl B-Natriuretic Peptide (0-100) pg/ml Total Protein 6.1 5.6 L (6.0-8.3) gm/dl Albumin 3.3 L 2.6 L (3.4-5.0) gm/dl Globulin 2.8 3.0 (2.5-4.0) gm/dl Albumin/Globulin Ratio 1.2 0.9 (0.9-2) Procalcitonin 0.51 H (0-0.5) ng/ml TSH 0.402 (0.300-4.500) uIu/ml Urine Color Urine Appearance (Clear) Urine pH (4.5-7.5) Ur Specific Beecher (1.000-1.030) Urine Protein (Negative) Urine Glucose (UA) (Negative) Urine Ketones (Negative) Urine Blood (Negative) Urine Nitrite (Negative) Urine Bilirubin (Negative) Urine Urobilinogen (Negative) Ur Leukocyte Esterase (Negative) Urine WBC (Auto) (0-5) /hpf Urine RBC (Auto) (0-2) /hpf U Hyaline Cast (Auto) (0-2) /lpf U Epithel Cells (Auto) (0-2) /hpf Urine Bacteria (Auto) (None Seen) Urine Yeast (None Prsent) Urine Osmolality (500-800) mOsm/kg Ur Random Creatinine mg/dl Ur Random Sodium mmol/L Ur Random Potassium mmol/L Ur Random Chloride mmol/L Nasal Screen MRSA (PCR) (Negative) Stool Occult Bld Scrn (Negative) Stl C. diff Tox B Gene (Neg) Adenovirus (PCR) (NotDetected) B. pertussis DNA (PCR) (NotDetected) B.parapertussis DNA PCR (NotDetected) C. pneumoniae DNA (PCR) (NotDetected) Coronavirus OC43 (PCR) (NotDetected) Coronavirus HKU1 (PCR) (NotDetected) Coronavirus 229E (PCR) (NotDetected) SARS-CoV-2 (PCR) (Negative) Coronavirus NL63 (PCR) (NotDetected) Human Metapneumovir PCR (NotDetected) Influenza Type A (PCR) (Neg) Influenza Type B (PCR) (Neg) Urine Legionella Ag M. pneumoniae (PCR) (NotDetected) Parainfluenza 1 (PCR) (NotDetected) Parainfluenza 2 (PCR) (NotDetected) Parainfluenza 3 (PCR) (NotDetected) Parainfluenza 4 (PCR) (NotDetected) RSV (RT-PCR) (Neg) RSV (PCR) (NotDetected) Entero/Rhino (PCR) (NotDetected) Ref Lab Test Result Blood Type A Positive Blood Type Recheck Antibody Screen NEGATIVE Crossmatch See Detail 03/05/24 03/05/24 03/04/24 Range/Units 14:26 07:10 22:47 WBC 9.47 (4.8-10.8) K/ul RBC 3.01 L (4.20-5.40) M/uL Hgb 9.4 L (12.0-16.0) g/dl POC Hgb (12.0-16.0) g/dl Hct 27.4 L (37.0-47.0) % POC Hct (37-47) % MCV 91.0 (80.0-100.0) fL MCH 31.2 (25.0-34.0) pg MCHC 34.3 (32.0-36.0) g/dL RDW Std Deviation 46.8 H (36.4-46.3) fL RDW Coeff of Ailyn 13.8 (11.5-14.5) % Plt Count 114 L (130-400) K/uL MPV 12.2 (9.4-12.4) fL Immature Gran % (Auto) 0.7 % Neut % (Auto) 89.5 % Lymph % (Auto) 8.7 % [place] % (Auto) 1.0 % Eos % (Auto) 0.0 % Baso % (Auto) 0.1 % Neut # (Auto) 8.48 H (1.40-6.50) K/uL Lymph # (Auto) 0.82 L (1.20-3.40) K/uL [place] # (Auto) 0.09 L (0.11-0.59) K/uL Eos # (Auto) 0.00 (0.00-0.50) K/uL Baso # (Auto) 0.01 (0.00-0.20) K/uL Immature Gran # (Auto) 0.07 (0.01-0.20) K/uL Absolute Nucleated RBC (0.00-0.12) K/uL Nucleated RBC % (auto) % RBC Morphology Polychromasia Poikilocytosis Acanthocytes (Spur) PT (9.0-12.0) Seconds INR (0.9-1.1) APTT (21-31) Seconds PTT Ratio Fibrinogen (184-400) mg/dl Factor VIII Activity (55 - 145) % Sample Site POC pH (7.35-7.45) POC pCO2 (35-46) mmHg POC pO2 (80-95) mmHg POC HCO3 (19-24) samara/L POC Total CO2 (24-31) mmol/L POC Base Excess (-9-1.8) samara/L ABG pH (7.35-7.45) ABG pH (Temp Correct) (7.35-7.45) ABG pCO2 (35-46) mmHg ABG pCO2 (Temp Corrct (35-46) mmHg ABG pO2 (80-95) mmHg POC ABG pO2 at Pt Temp ABG HCO3 (19-24) mmol/L POC ABG O2 Sat (90-95) % ABG O2 Saturation (90-95) % ABG Base Excess (-9-1.8) mEq/L Jay Test (Pos) VBG pH (7.36-7.41) VBG pCO2 (38-50) mmHg VBG pO2 mmHg VBG HCO3 mmol/L VBG O2 Saturation % VBG Base Excess mEq/L Oxygen Given O2 Delivery Device POC O2 Rate Minute Ventilation POC FiO2 % Tidal Volume PEEP POC Sodium (135-144) mmol/L Sodium 142 143 (136-145) mmol/L POC Potassium (3.3-5.0) mmol/L Potassium 4.1 3.6 D (3.5-5.1) mmol/L Chloride 118 H 116 H (98-107) mmol/L Carbon Dioxide 17 L 20 L (21-32) mmol/L Anion Gap 7 7 (3-11) BUN 17 16 (6-23) mg/dl Creatinine 0.47 L 0.39 L (0.6-1.2) mg/dl Est Cr Clr Drug Dosing 95.3 114.8 ml/min eGFR 97.99 102.50 BUN/Creatinine Ratio 36.2 H 41.0 H (10-20) Glucose 169 H 130 H (70-99(Fasting)) mg/dl POC Glucose (70-99) mg/dl POC Glucose (other) (70-99) mg/dl Lactate (0.4-2.0) mmol/L Calcium 7.8 L 7.8 L (8.6-10.3) mg/dl Phosphorus 2.0 L D 3.6 D 1.8 L (2.5-4.9) mg/dl Magnesium 2.1 2.4 1.6 L (1.7-2.4) mg/dl Total Bilirubin 0.6 (0.2-1.0) mg/dl Direct Bilirubin (0-0.2) mg/dl AST 35 (13-39) U/L ALT 26 (7-52) U/L Alkaline Phosphatase 73 (34-104) U/L Lactate Dehydrogenase (86-244) U/L Total Creatine Kinase (26-192) U/L Troponin I High Sens (0-14) pg/ml C-Reactive Protein (0-0.5) mg/dl B-Natriuretic Peptide (0-100) pg/ml Total Protein 5.4 L (6.0-8.3) gm/dl Albumin 2.7 L (3.4-5.0) gm/dl Globulin 2.7 (2.5-4.0) gm/dl Albumin/Globulin Ratio 1.0 (0.9-2) Procalcitonin (0-0.5) ng/ml TSH (0.300-4.500) uIu/ml Urine Color Urine Appearance (Clear) Urine pH (4.5-7.5) Ur Specific Beecher (1.000-1.030) Urine Protein (Negative) Urine Glucose (UA) (Negative) Urine Ketones (Negative) Urine Blood (Negative) Urine Nitrite (Negative) Urine Bilirubin (Negative) Urine Urobilinogen (Negative) Ur Leukocyte Esterase (Negative) Urine WBC (Auto) (0-5) /hpf Urine RBC (Auto) (0-2) /hpf U Hyaline Cast (Auto) (0-2) /lpf U Epithel Cells (Auto) (0-2) /hpf Urine Bacteria (Auto) (None Seen) Urine Yeast (None Prsent) Urine Osmolality (500-800) mOsm/kg Ur Random Creatinine mg/dl Ur Random Sodium mmol/L Ur Random Potassium mmol/L Ur Random Chloride mmol/L Nasal Screen MRSA (PCR) (Negative) Stool Occult Bld Scrn (Negative) Stl C. diff Tox B Gene (Neg) Adenovirus (PCR) (NotDetected) B. pertussis DNA (PCR) (NotDetected) B.parapertussis DNA PCR (NotDetected) C. pneumoniae DNA (PCR) (NotDetected) Coronavirus OC43 (PCR) (NotDetected) Coronavirus HKU1 (PCR) (NotDetected) Coronavirus 229E (PCR) (NotDetected) SARS-CoV-2 (PCR) (Negative) Coronavirus NL63 (PCR) (NotDetected) Human Metapneumovir PCR (NotDetected) Influenza Type A (PCR) (Neg) Influenza Type B (PCR) (Neg) Urine Legionella Ag M. pneumoniae (PCR) (NotDetected) Parainfluenza 1 (PCR) (NotDetected) Parainfluenza 2 (PCR) (NotDetected) Parainfluenza 3 (PCR) (NotDetected) Parainfluenza 4 (PCR) (NotDetected) RSV (RT-PCR) (Neg) RSV (PCR) (NotDetected) Entero/Rhino (PCR) (NotDetected) Ref Lab Test Result Blood Type Blood Type Recheck Antibody Screen Crossmatch 03/04/24 03/04/24 03/03/24 Range/Units 12:33 05:32 Unknown WBC 9.77 (4.8-10.8) K/ul RBC 2.92 L (4.20-5.40) M/uL Hgb 8.9 L (12.0-16.0) g/dl POC Hgb (12.0-16.0) g/dl Hct 27.1 L (37.0-47.0) % POC Hct (37-47) % MCV 92.8 (80.0-100.0) fL MCH 30.5 (25.0-34.0) pg MCHC 32.8 (32.0-36.0) g/dL RDW Std Deviation 46.4 H (36.4-46.3) fL RDW Coeff of Ailyn 13.6 (11.5-14.5) % Plt Count 108 L (130-400) K/uL MPV 11.6 (9.4-12.4) fL Immature Gran % (Auto) 0.6 % Neut % (Auto) 89.5 % Lymph % (Auto) 8.7 % [place] % (Auto) 1.1 % Eos % (Auto) 0.0 % Baso % (Auto) 0.1 % Neut # (Auto) 8.74 H (1.40-6.50) K/uL Lymph # (Auto) 0.85 L (1.20-3.40) K/uL [place] # (Auto) 0.11 (0.11-0.59) K/uL Eos # (Auto) 0.00 (0.00-0.50) K/uL Baso # (Auto) 0.01 (0.00-0.20) K/uL Immature Gran # (Auto) 0.06 (0.01-0.20) K/uL Absolute Nucleated RBC (0.00-0.12) K/uL Nucleated RBC % (auto) % RBC Morphology Polychromasia 2+ Poikilocytosis Acanthocytes (Spur) PT (9.0-12.0) Seconds INR (0.9-1.1) APTT (21-31) Seconds PTT Ratio Fibrinogen (184-400) mg/dl Factor VIII Activity (55 - 145) % Sample Site POC pH (7.35-7.45) POC pCO2 (35-46) mmHg POC pO2 (80-95) mmHg POC HCO3 (19-24) samara/L POC Total CO2 (24-31) mmol/L POC Base Excess (-9-1.8) samara/L ABG pH (7.35-7.45) ABG pH (Temp Correct) (7.35-7.45) ABG pCO2 (35-46) mmHg ABG pCO2 (Temp Corrct (35-46) mmHg ABG pO2 (80-95) mmHg POC ABG pO2 at Pt Temp ABG HCO3 (19-24) mmol/L POC ABG O2 Sat (90-95) % ABG O2 Saturation (90-95) % ABG Base Excess (-9-1.8) mEq/L Jay Test (Pos) VBG pH 7.39 (7.36-7.41) VBG pCO2 34 L (38-50) mmHg VBG pO2 38 mmHg VBG HCO3 21 mmol/L VBG O2 Saturation 65.6 % VBG Base Excess -3.6 mEq/L Oxygen Given O2 Delivery Device POC O2 Rate Minute Ventilation POC FiO2 % Tidal Volume PEEP POC Sodium (135-144) mmol/L Sodium 147 H (136-145) mmol/L POC Potassium (3.3-5.0) mmol/L Potassium 2.6 L (3.5-5.1) mmol/L Chloride 117 H (98-107) mmol/L Carbon Dioxide 22 (21-32) mmol/L Anion Gap 8 (3-11) BUN 22 (6-23) mg/dl Creatinine 0.47 L (0.6-1.2) mg/dl Est Cr Clr Drug Dosing 97.0 ml/min eGFR 97.99 BUN/Creatinine Ratio 46.8 H (10-20) Glucose 131 H (70-99(Fasting)) mg/dl POC Glucose (70-99) mg/dl POC Glucose (other) (70-99) mg/dl Lactate (0.4-2.0) mmol/L Calcium 7.8 L (8.6-10.3) mg/dl Phosphorus 1.5 L* (2.5-4.9) mg/dl Magnesium 1.7 (1.7-2.4) mg/dl Total Bilirubin 0.6 (0.2-1.0) mg/dl Direct Bilirubin (0-0.2) mg/dl AST 33 (13-39) U/L ALT 31 (7-52) U/L Alkaline Phosphatase 68 (34-104) U/L Lactate Dehydrogenase (86-244) U/L Total Creatine Kinase (26-192) U/L Troponin I High Sens (0-14) pg/ml C-Reactive Protein 22.94 H (0-0.5) mg/dl B-Natriuretic Peptide (0-100) pg/ml Total Protein 5.4 L (6.0-8.3) gm/dl Albumin 2.8 L (3.4-5.0) gm/dl Globulin 2.6 (2.5-4.0) gm/dl Albumin/Globulin Ratio 1.1 (0.9-2) Procalcitonin (0-0.5) ng/ml TSH (0.300-4.500) uIu/ml Urine Color Urine Appearance (Clear) Urine pH (4.5-7.5) Ur Specific Beecher (1.000-1.030) Urine Protein (Negative) Urine Glucose (UA) (Negative) Urine Ketones (Negative) Urine Blood (Negative) Urine Nitrite (Negative) Urine Bilirubin (Negative) Urine Urobilinogen (Negative) Ur Leukocyte Esterase (Negative) Urine WBC (Auto) (0-5) /hpf Urine RBC (Auto) (0-2) /hpf U Hyaline Cast (Auto) (0-2) /lpf U Epithel Cells (Auto) (0-2) /hpf Urine Bacteria (Auto) (None Seen) Urine Yeast (None Prsent) Urine Osmolality (500-800) mOsm/kg Ur Random Creatinine mg/dl Ur Random Sodium mmol/L Ur Random Potassium mmol/L Ur Random Chloride mmol/L Nasal Screen MRSA (PCR) (Negative) Stool Occult Bld Scrn Negative (Negative) Stl C. diff Tox B Gene Negative Cdiff Gene (Neg) Adenovirus (PCR) Not Detected (NotDetected) B. pertussis DNA (PCR) Not Detected (NotDetected) B.parapertussis DNA PCR Not Detected (NotDetected) C. pneumoniae DNA (PCR) Not Detected (NotDetected) Coronavirus OC43 (PCR) Not Detected (NotDetected) Coronavirus HKU1 (PCR) Not Detected (NotDetected) Coronavirus 229E (PCR) Not Detected (NotDetected) SARS-CoV-2 (PCR) DETECTED A (Negative) Coronavirus NL63 (PCR) Not Detected (NotDetected) Human Metapneumovir PCR Not Detected (NotDetected) Influenza Type A (PCR) Not Detected (Neg) Influenza Type B (PCR) Not Detected (Neg) Urine Legionella Ag M. pneumoniae (PCR) Not Detected (NotDetected) Parainfluenza 1 (PCR) Not Detected (NotDetected) Parainfluenza 2 (PCR) Not Detected (NotDetected) Parainfluenza 3 (PCR) Not Detected (NotDetected) Parainfluenza 4 (PCR) Not Detected (NotDetected) RSV (RT-PCR) (Neg) RSV (PCR) Not Detected (NotDetected) Entero/Rhino (PCR) Not Detected (NotDetected) Ref Lab Test Result Blood Type Blood Type Recheck Antibody Screen Crossmatch 03/03/24 03/03/24 03/03/24 Range/Units 20:49 16:56 16:37 WBC (4.8-10.8) K/ul RBC (4.20-5.40) M/uL Hgb (12.0-16.0) g/dl POC Hgb (12.0-16.0) g/dl Hct (37.0-47.0) % POC Hct (37-47) % MCV (80.0-100.0) fL MCH (25.0-34.0) pg MCHC (32.0-36.0) g/dL RDW Std Deviation (36.4-46.3) fL RDW Coeff of Ailyn (11.5-14.5) % Plt Count (130-400) K/uL MPV (9.4-12.4) fL Immature Gran % (Auto) % Neut % (Auto) % Lymph % (Auto) % Madison % (Auto) % Eos % (Auto) % Baso % (Auto) % Neut # (Auto) (1.40-6.50) K/uL Lymph # (Auto) (1.20-3.40) K/uL Madison # (Auto) (0.11-0.59) K/uL Eos # (Auto) (0.00-0.50) K/uL Baso # (Auto) (0.00-0.20) K/uL Immature Gran # (Auto) (0.01-0.20) K/uL Absolute Nucleated RBC (0.00-0.12) K/uL Nucleated RBC % (auto) % RBC Morphology Polychromasia Poikilocytosis Acanthocytes (Spur) PT (9.0-12.0) Seconds INR (0.9-1.1) APTT (21-31) Seconds PTT Ratio Fibrinogen (184-400) mg/dl Factor VIII Activity (55 - 145) % Sample Site POC pH (7.35-7.45) POC pCO2 (35-46) mmHg POC pO2 (80-95) mmHg POC HCO3 (19-24) samara/L POC Total CO2 (24-31) mmol/L POC Base Excess (-9-1.8) samara/L ABG pH (7.35-7.45) ABG pH (Temp Correct) (7.35-7.45) ABG pCO2 (35-46) mmHg ABG pCO2 (Temp Corrct (35-46) mmHg ABG pO2 (80-95) mmHg POC ABG pO2 at Pt Temp ABG HCO3 (19-24) mmol/L POC ABG O2 Sat (90-95) % ABG O2 Saturation (90-95) % ABG Base Excess (-9-1.8) mEq/L Jay Test (Pos) VBG pH (7.36-7.41) VBG pCO2 (38-50) mmHg VBG pO2 mmHg VBG HCO3 mmol/L VBG O2 Saturation % VBG Base Excess mEq/L Oxygen Given O2 Delivery Device POC O2 Rate Minute Ventilation POC FiO2 % Tidal Volume PEEP POC Sodium (135-144) mmol/L Sodium 148 H (136-145) mmol/L POC Potassium (3.3-5.0) mmol/L Potassium 2.5 L* (3.5-5.1) mmol/L Chloride 116 H (98-107) mmol/L Carbon Dioxide 23 (21-32) mmol/L Anion Gap 9 (3-11) BUN 29 H (6-23) mg/dl Creatinine 0.62 (0.6-1.2) mg/dl Est Cr Clr Drug Dosing 72.3 ml/min eGFR 91.66 BUN/Creatinine Ratio 46.8 H (10-20) Glucose 127 H (70-99(Fasting)) mg/dl POC Glucose (70-99) mg/dl POC Glucose (other) (70-99) mg/dl Lactate (0.4-2.0) mmol/L Calcium 8.0 L (8.6-10.3) mg/dl Phosphorus 2.1 L (2.5-4.9) mg/dl Magnesium (1.7-2.4) mg/dl Total Bilirubin (0.2-1.0) mg/dl Direct Bilirubin (0-0.2) mg/dl AST (13-39) U/L ALT (7-52) U/L Alkaline Phosphatase (34-104) U/L Lactate Dehydrogenase (86-244) U/L Total Creatine Kinase 181 (26-192) U/L Troponin I High Sens 94.5 H* D 121.2 H* D (0-14) pg/ml C-Reactive Protein (0-0.5) mg/dl B-Natriuretic Peptide (0-100) pg/ml Total Protein (6.0-8.3) gm/dl Albumin (3.4-5.0) gm/dl Globulin (2.5-4.0) gm/dl Albumin/Globulin Ratio (0.9-2) Procalcitonin (0-0.5) ng/ml TSH (0.300-4.500) uIu/ml Urine Color Urine Appearance (Clear) Urine pH (4.5-7.5) Ur Specific Beecher (1.000-1.030) Urine Protein (Negative) Urine Glucose (UA) (Negative) Urine Ketones (Negative) Urine Blood (Negative) Urine Nitrite (Negative) Urine Bilirubin (Negative) Urine Urobilinogen (Negative) Ur Leukocyte Esterase (Negative) Urine WBC (Auto) (0-5) /hpf Urine RBC (Auto) (0-2) /hpf U Hyaline Cast (Auto) (0-2) /lpf U Epithel Cells (Auto) (0-2) /hpf Urine Bacteria (Auto) (None Seen) Urine Yeast (None Prsent) Urine Osmolality (500-800) mOsm/kg Ur Random Creatinine mg/dl Ur Random Sodium mmol/L Ur Random Potassium mmol/L Ur Random Chloride mmol/L Nasal Screen MRSA (PCR) Negative (Negative) Stool Occult Bld Scrn (Negative) Stl C. diff Tox B Gene (Neg) Adenovirus (PCR) (NotDetected) B. pertussis DNA (PCR) (NotDetected) B.parapertussis DNA PCR (NotDetected) C. pneumoniae DNA (PCR) (NotDetected) Coronavirus OC43 (PCR) (NotDetected) Coronavirus HKU1 (PCR) (NotDetected) Coronavirus 229E (PCR) (NotDetected) SARS-CoV-2 (PCR) (Negative) Coronavirus NL63 (PCR) (NotDetected) Human Metapneumovir PCR (NotDetected) Influenza Type A (PCR) (Neg) Influenza Type B (PCR) (Neg) Urine Legionella Ag M. pneumoniae (PCR) (NotDetected) Parainfluenza 1 (PCR) (NotDetected) Parainfluenza 2 (PCR) (NotDetected) Parainfluenza 3 (PCR) (NotDetected) Parainfluenza 4 (PCR) (NotDetected) RSV (RT-PCR) (Neg) RSV (PCR) (NotDetected) Entero/Rhino (PCR) (NotDetected) Ref Lab Test Result Blood Type Blood Type Recheck Antibody Screen Crossmatch 03/03/24 03/03/24 03/03/24 Range/Units 15:13 14:55 14:24 WBC 9.96 (4.8-10.8) K/ul RBC 3.38 L (4.20-5.40) M/uL Hgb 10.4 L (12.0-16.0) g/dl POC Hgb (12.0-16.0) g/dl Hct 31.0 L (37.0-47.0) % POC Hct (37-47) % MCV 91.7 (80.0-100.0) fL MCH 30.8 (25.0-34.0) pg MCHC 33.5 (32.0-36.0) g/dL RDW Std Deviation 45.0 (36.4-46.3) fL RDW Coeff of Ailyn 13.4 (11.5-14.5) % Plt Count 144 (130-400) K/uL MPV 11.8 (9.4-12.4) fL Immature Gran % (Auto) 1.0 % Neut % (Auto) 93.1 % Lymph % (Auto) 4.8 % Madison % (Auto) 1.0 % Eos % (Auto) 0.0 % Baso % (Auto) 0.1 % Neut # (Auto) 9.27 H (1.40-6.50) K/uL Lymph # (Auto) 0.48 L (1.20-3.40) K/uL Madison # (Auto) 0.10 L (0.11-0.59) K/uL Eos # (Auto) 0.00 (0.00-0.50) K/uL Baso # (Auto) 0.01 (0.00-0.20) K/uL Immature Gran # (Auto) 0.10 (0.01-0.20) K/uL Absolute Nucleated RBC (0.00-0.12) K/uL Nucleated RBC % (auto) % RBC Morphology Polychromasia 1+ Poikilocytosis Acanthocytes (Spur) PT 13.1 H (9.0-12.0) Seconds INR 1.2 H (0.9-1.1) APTT 29 (21-31) Seconds PTT Ratio 1.1 Fibrinogen (184-400) mg/dl Factor VIII Activity (55 - 145) % Sample Site POC pH (7.35-7.45) POC pCO2 (35-46) mmHg POC pO2 (80-95) mmHg POC HCO3 (19-24) samara/L POC Total CO2 (24-31) mmol/L POC Base Excess (-9-1.8) samara/L ABG pH (7.35-7.45) ABG pH (Temp Correct) (7.35-7.45) ABG pCO2 (35-46) mmHg ABG pCO2 (Temp Corrct (35-46) mmHg ABG pO2 (80-95) mmHg POC ABG pO2 at Pt Temp ABG HCO3 (19-24) mmol/L POC ABG O2 Sat (90-95) % ABG O2 Saturation (90-95) % ABG Base Excess (-9-1.8) mEq/L Jay Test (Pos) VBG pH 7.42 H (7.36-7.41) VBG pCO2 29 L (38-50) mmHg VBG pO2 73 mmHg VBG HCO3 19 mmol/L VBG O2 Saturation 97.1 % VBG Base Excess -5.1 mEq/L Oxygen Given O2 Delivery Device POC O2 Rate Minute Ventilation POC FiO2 % Tidal Volume PEEP POC Sodium (135-144) mmol/L Sodium 147 H (136-145) mmol/L POC Potassium (3.3-5.0) mmol/L Potassium 2.4 L* (3.5-5.1) mmol/L Chloride 116 H (98-107) mmol/L Carbon Dioxide 19 L (21-32) mmol/L Anion Gap 12 H (3-11) BUN 35 H (6-23) mg/dl Creatinine 0.72 (0.6-1.2) mg/dl Est Cr Clr Drug Dosing 62.3 ml/min eGFR 86.06 BUN/Creatinine Ratio 48.6 H (10-20) Glucose 156 H (70-99(Fasting)) mg/dl POC Glucose (70-99) mg/dl POC Glucose (other) (70-99) mg/dl Lactate 1.6 (0.4-2.0) mmol/L Calcium 8.1 L (8.6-10.3) mg/dl Phosphorus (2.5-4.9) mg/dl Magnesium 1.9 (1.7-2.4) mg/dl Total Bilirubin 0.7 (0.2-1.0) mg/dl Direct Bilirubin 0.2 (0-0.2) mg/dl AST 45 H (13-39) U/L ALT 22 (7-52) U/L Alkaline Phosphatase 84 (34-104) U/L Lactate Dehydrogenase (86-244) U/L Total Creatine Kinase (26-192) U/L Troponin I High Sens 99.1 H* (0-14) pg/ml C-Reactive Protein 16.54 H (0-0.5) mg/dl B-Natriuretic Peptide (0-100) pg/ml Total Protein 6.3 (6.0-8.3) gm/dl Albumin 3.2 L (3.4-5.0) gm/dl Globulin (2.5-4.0) gm/dl Albumin/Globulin Ratio (0.9-2) Procalcitonin (0-0.5) ng/ml TSH (0.300-4.500) uIu/ml Urine Color Yellow Urine Appearance Cloudy A (Clear) Urine pH 6.5 (4.5-7.5) Ur Specific Beecher 1.025 (1.000-1.030) Urine Protein 2+ H (Negative) Urine Glucose (UA) Negative (Negative) Urine Ketones Negative (Negative) Urine Blood Negative (Negative) Urine Nitrite Negative (Negative) Urine Bilirubin Negative (Negative) Urine Urobilinogen Negative (Negative) Ur Leukocyte Esterase Trace H (Negative) Urine WBC (Auto) 11-20 H (0-5) /hpf Urine RBC (Auto) >20 H (0-2) /hpf U Hyaline Cast (Auto) 3-5 H (0-2) /lpf U Epithel Cells (Auto) 11-20 H (0-2) /hpf Urine Bacteria (Auto) None Seen (None Seen) Urine Yeast Present A (None Prsent) Urine Osmolality (500-800) mOsm/kg Ur Random Creatinine mg/dl Ur Random Sodium mmol/L Ur Random Potassium mmol/L Ur Random Chloride mmol/L Nasal Screen MRSA (PCR) (Negative) Stool Occult Bld Scrn (Negative) Stl C. diff Tox B Gene (Neg) Adenovirus (PCR) (NotDetected) B. pertussis DNA (PCR) (NotDetected) B.parapertussis DNA PCR (NotDetected) C. pneumoniae DNA (PCR) (NotDetected) Coronavirus OC43 (PCR) (NotDetected) Coronavirus HKU1 (PCR) (NotDetected) Coronavirus 229E (PCR) (NotDetected) SARS-CoV-2 (PCR) POSITIVE A (Negative) Coronavirus NL63 (PCR) (NotDetected) Human Metapneumovir PCR (NotDetected) Influenza Type A (PCR) Negative (Neg) Influenza Type B (PCR) Negative (Neg) Urine Legionella Ag M. pneumoniae (PCR) (NotDetected) Parainfluenza 1 (PCR) (NotDetected) Parainfluenza 2 (PCR) (NotDetected) Parainfluenza 3 (PCR) (NotDetected) Parainfluenza 4 (PCR) (NotDetected) RSV (RT-PCR) Negative (Neg) RSV (PCR) (NotDetected) Entero/Rhino (PCR) (NotDetected) Ref Lab Test Result See Scanned Report Blood Type Blood Type Recheck Antibody Screen Crossmatch Diagnostic Findings Chest X-Ray 03/03/24 14:16 XR chest 1V portable CLINICAL HISTORY: Sepsis. COMPARISON STUDY: No previous studies for comparison. FINDINGS: There is no pneumothorax or pleural effusion. There is slight elevation of the right hemidiaphragm. Cardiac size is normal. Mediastinal contours are normal. Patchy bilateral lower lung airspace opacities are present. There is no evidence for pulmonary edema. Severe osteoarthritis of both glenohumeral joints. IMPRESSION: Patchy bilateral lower lung airspace opacities which favor an infectious process. Radiographic follow-up to ensure resolution is recommended. ACT 112: Negative or not required by law. Electronically signed by: Alexis Caballero M.D. 03/03/2024 3:18 PM KUB X-Ray 03/03/24 19:23 KUB CLINICAL HISTORY: feeding tube placement COMPARISON STUDY: None. FINDINGS: The tip of the feeding tube projects over the first portion of duodenum. Bilateral airspace opacities are greater within the right lung. Visualized bowel gas pattern is unremarkable. No evidence for free air on this exam. IMPRESSION: 1. Tip of feeding tube projects over the first portion of the duodenum. 2. Bilateral airspace opacities, greater within the right lung. The findings f avor pneumonia. ACT 112: Negative or not required by law. Electronically signed by: Alexis Caballero M.D. 03/03/2024 7:40 PM Chest X-Ray 03/04/24 21:37 XR chest 1V portable CLINICAL HISTORY: Increase O2 demand TECHNIQUE: Single frontal radiograph of the chest was obtained. Comparison: Comparison is made to chest radiograph 03/03/2024 FINDINGS: Enteric tube is partially visualized. Calcified aortic knob is seen. Airspace opacities are visible in the right midlung. Interstitial thickening is seen. No evidence of pleural effusion or pneumothorax. IMPRESSION: Scattered airspace opacities are increased in conspicuity from prior exam compatible with pneumonia/aspiration. ACT 112: Negative or not required by law. Electronically signed by: Chris Murphy M.D. 03/05/2024 7:50 AM Chest X-Ray 03/05/24 22:35 XR chest 1V portable HISTORY: 79 years-old Female increased O2 demand COMPARISON: CTA chest 03/06/2024 TECHNIQUE: AP view of the chest FINDINGS: Enteric tube course into the stomach with distal tip outside the [id number]. Small pleural effusions. No pneumothorax. Multilobar distribution bilateral mixed interstitial and alveolar opacities, right greater than left. Heart is upper limits of normal in size. Degenerative changes of the shoulders and spine. Mild right hemidiaphragmatic elevation. IMPRESSION: 1. Right greater than left mixed interstitial and alveolar opacities may represent asymmetric pulmonary edema versus multifocal pneumonia. 2. Small pleural effusions. ACT 112: Negative or not required by law. The above report was generated using voice recognition software. It may contain grammatical, syntax or spelling errors. Electronically signed by: Adalid Luz M.D. 03/06/2024 6:48 AM Chest CTA 03/06/24 00:37 Exam(s): CTA CHEST IV Amt: 119 ml opti 320 EXAM: CT Angiography Chest With Intravenous Contrast CLINICAL HISTORY: Reason for exam: PE r/o, known R aspiration. TECHNIQUE: Axial computed tomographic angiography images of the chest with intravenous contrast. CTDI is 23.56 mGy and DLP is 695.9 mGy-cm. Automated exposure control was utilized for the study. A dose lowering technique was utilized adhering to the principles of ALARA. MIP reconstructed images were created and reviewed. COMPARISON: No relevant prior studies available. FINDINGS: Pulmonary arteries: Unremarkable. No pulmonary embolism. Aorta: No acute findings. No thoracic aortic aneurysm. Lungs: Patchy bilateral airspace consolidations, consistent with severe multilobar pneumonia. Small bilateral parapneumonic effusions. Pleural space: Unremarkable. No significant effusion. No pneumothorax. Heart: Unremarkable. No cardiomegaly. No significant pericardial effusion. No evidence of RV dysfunction. Bones/joints: No acute fracture. No dislocation. Soft tissues: Unremarkable. Lymph nodes: Unremarkable. No enlarged lymph nodes. Tubes, lines and devices: Feeding tube terminates in the stomach. IMPRESSION: 1. No pulmonary embolism. 2. Patchy bilateral airspace consolidations, consistent with severe multilobar pneumonia. Small bilateral parapneumonic effusions. 3. Feeding tube terminates in the stomach. Electronically signed by: Vincent Kaplan MD 03/06/24 03:04 AM Chest X-Ray 03/06/24 04:18 XR chest 1V portable CLINICAL HISTORY: tube placement TECHNIQUE: Single frontal radiograph of the chest was obtained. Comparison: Comparison is made to chest radiograph 03/05/2024 FINDINGS: Endotracheal tube terminates 2.6 cm in the jazmin. Enteric tube terminates below the diaphragm. The cardiomediastinal silhouette is normal. Multifocal airspace opacities are similar in extent to prior exam. Small left pleural effusion cannot be excluded. IMPRESSION: Multifocal airspace opacities may represent atelectasis, pneumonia, and/or aspiration. ACT 112: Negative or not required by law. Electronically signed by: Chris Murphy M.D. 03/06/2024 7:00 AM Abdomen/Pelvis CT 03/07/24 07:[address] WITH IV CONTRAST CT DOSE: 1294.99 mGy.cm HISTORY: Acute onset abdominal pain with possible GI bleed R/O BLEED TECHNIQUE: Multiaxial CT images of the abdomen and pelvis were performed following the IV administration of 94 cc of Optiray, A dose lowering technique was utilized adhering to the principles of ALARA. COMPARISON STUDY: CTA chest 03/06/2024 FINDINGS: Streak artifact related to the hip arthroplasties limits the exam. Mild cardiomegaly. Thtfc-[id number] layering pleural effusions have slightly increased in size. Multifocal groundglass and alveolar opacities of the lungs redemonstrated suggestive of multifocal pneumonia. Study is degraded by respiratory motion artifact. No pneumatosis or pneumoperitoneum. Unremarkable spleen, mildly atrophic pancreas and left adrenal gland. Right adrenal gland calcifications appear chronic. Mildly distended gallbladder. The liver is within normal limits. 1.6 cm inferior right hepatic lobe cyst. Patency of the portal vein. There are a few scattered subcentimeter left renal calcifications. 2.5 cm hypodensity of the mid inferior pole left kidney suggestive of a probable cyst. No hydronephrosis. Decompressed urinary bladder with Trevino catheter. Atherosclerosis of the aorta without aneurysm. No lymphadenopathy. A feeding tube is noted with distal tip terminating within the duodenum. No bowel obstruction. Fluid-filled nondilated loops of both large and small bowel are present. Fluid-filled noninflamed appendix. Mild generalized body wall edema. Degenerative changes of the spine. IMPRESSION: 1. Limited exam as above. 2. Wpmtj-oi-vkyvikmx pleural effusions have mildly increased in size. There are persistent multifocal pulmonary opacities favoring multifocal pneumonia. 3. No bowel obstruction or bowel wall thickening. 4. Nondilated fluid-filled loops of large and small bowel may be physiologic or represent an ileus versus enteritis with diarrheal illness. 5. Distal tip of feeding tube terminates in the duodenum. 6. Additional findings as above. ACT 112: Negative or not required by law. The above report was generated using voice recognition software. It may contain grammatical, syntax or spelling errors. Electronically signed by: Adalid Luz M.D. 03/07/2024 10:04 AM Chest X-Ray 03/07/24 12:18 XR chest 1V portable CLINICAL HISTORY: central line placement. TECHNIQUE: Single frontal radiograph of the chest was obtained. Comparison: Comparison is made to chest radiograph 03/06/2024 FINDINGS: Lines and tubes are stable. Right IJ catheter terminates in the mid SVC. The cardiomediastinal silhouette is stable. Multifocal airspace opacities are seen. No definite pleural effusions. IMPRESSION: Right IJ catheter is in satisfactory position. Redemonstration of multifocal airspace opacities. ACT 112: Negative or not required by law. Electronically signed by: Chris Murphy M.D. 03/07/2024 12:50 PM Chest X-Ray 03/08/24 08:43 XR chest 1V portable CLINICAL HISTORY: increase need for 02 COMPARISON STUDY: Chest CT March 06, 2024. Chest radiograph March 07, 2024. FINDINGS: Tip of endotracheal tube is 3.5 cm above the jazmin. Tip of feeding tube is below the lower aspect of this image but at least within the gastric antrum. Right internal jugular central line remains in place. There is no pneumothorax. Small bilateral pleural effusions are unchanged. Multifocal bilateral airspace opacities are similar to prior exam. There is associated interstitial thickening. IMPRESSION: 1. Satisfactory positioning of lines and tubes. 2. Persistent extensive bilateral airspace opacities with interstitial thickening. The findings favor multifocal pneumonia. Pulmonary edema could a ppear similar. 3. No pneumothorax. Small bilateral pleural effusions. ACT 112: Negative or not required by law. Electronically signed by: Alexis Caballero M.D. 03/08/2024 9:38 AM Brain MRI 03/08/24 18:15 CR Exam(s): MRI HEAD Without Contrast EXAM: MR Head Without Intravenous Contrast CLINICAL HISTORY: Reason for exam: eval for mass or central cause for tachypnea. TECHNIQUE: Magnetic resonance images of the head/brain without intravenous contrast in multiple planes. COMPARISON: No relevant prior studies available. FINDINGS: Brain: There is a large right and small left occipital lobe acute ischemic injury without evidence of hemorrhagic transformation. There are numerous tiny foci of acute ischemic injury in the cerebrum and cerebellum. Advanced nonspecific white matter changes. Ventricles: Advanced ventriculomegaly. Bones/joints: Unremarkable. No acute fracture. Sinuses: Unremarkable as visualized. No acute sinusitis. Mastoid air cells: There is a small amount of fluid in the ethmoid air cells. No mastoid effusion. Orbits: Bilateral lens replacements. IMPRESSION: Large right and small left bilateral occipital lobe acute ischemic injuries with numerous tiny foci of acute ischemic injury throughout the cerebrum and cerebellum concerning for embolic phenomena. Recommend CT angiogram of the head and neck and echocardiogram further evaluation. No evidence of hemorrhagic transformation. Communications: Verify Receipt Electronically signed by: Kimberli Hooker MD 03/08/24 23:59 PM Head CTA 03/09/24 00:03 Exam(s): CTA HEAD With Contrast IV Amt: 118 ML OPTIRAY 320 EXAM: CT Angiography Head With Intravenous Contrast CLINICAL HISTORY: Reason for exam: multiple embolic CVAs on MRI. TECHNIQUE: Axial computed tomographic angiography images of the head with intravenous contrast. CTDI is 22.84 mGy and DLP is 455.73 mGy-cm. Automated exposure control was utilized for the study. A dose lowering technique was utilized adhering to the principles of ALARA. MIP reconstructed images were created and reviewed. CONTRAST: Patient received 118 ML OPTIRAY 320 of IV contrast COMPARISON: No relevant prior studies available. FINDINGS: The dural venous sinuses are patent. Right internal carotid artery: No acute findings. Intracranial segment is patent with no significant stenosis. No aneurysm. Right anterior cerebral artery: Unremarkable. No occlusion or significant stenosis. No aneurysm. Right middle cerebral artery: Unremarkable. No occlusion or significant stenosis. No aneurysm. Right posterior cerebral artery: Unremarkable. No occlusion or significant stenosis. No aneurysm. Right vertebral artery: Unremarkable as visualized. Left internal carotid artery: No acute findings. Intracranial segment is patent with no significant stenosis. No aneurysm. Left anterior cerebral artery: Unremarkable. No occlusion or significant stenosis. No aneurysm. Left middle cerebral artery: Unremarkable. No occlusion or significant stenosis. No aneurysm. Left posterior cerebral artery: Unremarkable. No occlusion or significant stenosis. No aneurysm. Left vertebral artery: Unremarkable as visualized. Basilar artery: Unremarkable. No occlusion or significant stenosis. No aneurysm. IMPRESSION: Negative CT angiogram of the head. Electronically signed by: Kimberli Hooker MD 03/09/24 03:26 AM Neck CTA 03/09/24 00:03 Exam(s): CTA NECK With Contrast IV Amt: 118 ML OPTIRAY 320 EXAM: CT Angiography Neck With Intravenous Contrast CLINICAL HISTORY: Reason for exam: multiple embolic cvas on MRI. TECHNIQUE: Routine carotid CT angiography protocol was performed with intravenous contrast. NASCET criteria using the distal ICAs for comparison were used for evaluation of stenoses. CTDI is 22.84 mGy and DLP is 455.73 mGy-cm. Automated exposure control was utilized for the study. A dose lowering technique was utilized adhering to the principles of ALARA. MIP reconstructed images were created and reviewed. CONTRAST: Patient received 118 ML OPTIRAY 320 of IV contrast COMPARISON: None. FINDINGS: VASCULATURE: Right common carotid artery: Unremarkable. No occlusion or significant stenosis. No dissection. Right internal carotid artery: Unremarkable. Extracranial segment is patent with no occlusion or significant stenosis. No dissection. Right external carotid artery: Unremarkable. No occlusion. Right vertebral artery: Unremarkable. No occlusion or significant stenosis. No dissection. Left common carotid artery: Unremarkable. No occlusion or significant stenosis. No dissection. Left internal carotid artery: Unremarkable. Extracranial segment is patent with no occlusion or significant stenosis. No dissection. Left external carotid artery: Unremarkable. No occlusion. Left vertebral artery: Unremarkable. No occlusion or significant stenosis. No dissection. NECK: Bones/joints: Unremarkable. No acute fracture. Soft tissues: Unremarkable. Lung apices: Bilateral pulmonary infiltrates with pleural effusions. CAROTID STENOSIS REFERENCE USING NASCET CRITERIA: % ICA stenosis = (1 - narrowest ICA diameter/diameter of distal cervical ICA) x 100. Mild - <50% stenosis. Moderate - 50-69% stenosis. Severe - 70-94% stenosis. Near occlusion - 95-99% stenosis. Occluded - 100% stenosis. IMPRESSION: Negative CTA neck. Electronically signed by: Kimberli Hooker MD 03/09/24 03:28 AM Chest X-Ray 03/09/24 07:00 XR chest 1V portable CLINICAL HISTORY: f/u COMPARISON STUDY: Chest CT March 06, 2024. Chest radiograph March 08, 2024. FINDINGS: Tip of endotracheal tube is 3.6 cm above the jazmin. Tip of feeding tube is at least within the body of the stomach. Right internal jugular central line remains in place. There is no pneumothorax. Small bilateral pleural effusions persist. Cardiomediastinal silhouette is stable. Multifocal bilateral airspace opacities and interstitial thickening persists. IMPRESSION: 1. Satisfactory positioning of lines and tubes. 2. Extensive bilateral airspace opacities and interstitial thickening, similar to prior exam. The findings favor multifocal pneumonia although pulmonary edema could appear similar. 3. Small bilateral pleural effusions. No pneumothorax. ACT 112: Negative or not required by law. Electronically signed by: Alexis Caballero M.D. 03/09/2024 7:04 AM PG Care Time/CCT Total # of Minutes Spent Total Time Spent with Patient: Total time spent is greater than 50% in coordination of care (as documented) at patient's floor/unit and/or counseling patient: I spent 70 minutes overall addressing this case: 10 min in medical data review/discussion with referring provider(s) and/or preparation for the visit 10 min in direct interaction with the patient/exam 25 min in Advance Care Planning/Goals of Care discussions as detailed above in note (must be >16min) 10 min in subsequent review and synthesis of assessment and plan 15 min communicating with other providers regarding the patient's case: nursing, icu, primary team Advanced Care Planning [id number] Advanced Care Planning 30 [place] [address] IN/OBS CONSULT LVL 3,45M (25 - SIGNIFICANT, SEPARATELY IDENTIFIABLE ) Patient Type New Medical Decision Making High Complexity Diagnoses Dyspnea and respiratory abnormalities R06.00; R06.89 Discussion about advance care planning held with family member Z71.0 Altered mental status R41.82 Weakness generalized R53.1 Severe acute respiratory syndrome coronavirus 2 (SARS-CoV-2) RNA test result positive at limit of detection U07.1 Embolic stroke I63.9 Acute hypoxemic respiratory failure J96.01 Parkinson's disease dementia G20.A1; F02.80 Additional Codes Advanced Care Planning - 66378 Advanced Care Planning 30 Min: 26738 Advanced Care Planning 30 Min ([id number])
[2024-03-09] MEDS ORDERED: ONDANSETRON INJ 2 MG/ML 2 ML VIAL IV PRN ×2 (16:53→19:50)
[2024-03-09] MEDS: LORazepam 2 MG/1 ML VIAL IV PRN ×2 (17:19→20:25)
[2024-03-09] MEDS: HYDROmorphone INJ 0.5 MG/0.5 ML SYR IV PRN ×2 (17:20→20:23)
[2024-03-09] MEDS: HYOSCYAMINE SULFATE 0.125 MG TAB SL PRN (17:20)
[2024-03-09] MEDS: GLYCOPYRROLATE 0.2 MG/ML VIAL IV PRN ×2 (17:41→20:44)
--- NOTE | 2024-03-09 23:24 | Death Pronouncement Note ---
Date of Service March 09, 2024 Pronouncement Note Admission Date Admission Date: March 03, 2024 Date and Time of Date of : 03/09/24 Time of : 23:05 PCOD Preliminary cause of : Pneumonia Contributing Factors (1) Acute respiratory failure with hypoxia: (2) Embolic stroke: (3) Parkinsons disease: (4) Metabolic encephalopathy: (5) Elevated troponin I level: (6) Severe acute respiratory syndrome coronavirus 2 (SARS-CoV-2) RNA test result positive at limit of detection: (7) Hypernatremia: (8) Anemia: Hospital Course Hospital Course: 79 YOF admitted on 03/03/24 with history of parkinson's dementia, hypoxia, recent COVID 19 infection and pneumonia. She was admitted for respiratory failure secondary to presumed combination aspiration and bacterial pneumonia. She suffered hypocarbic/hypoxic respiratory failure on 03/06/24 requiring emergent intubation. Patient continued to be unable to wean from ventilator and remained tachypneic and poor mental exam, for this MRI was obtained on 03/09/24 and noted multiple embolic strokes, further workup with CTA head and neck, ECHO with bubble study did not reveal source of embolism. Palliative care was engaged on 03/09/24 due to her steady cognitive decline and new CVA findings. After further discussion with the patient's he was sure that she would not want to be dependant on life support and understood that her new findings on chornic conditions were not curable. Patient was paliatively extubated this evening, and comfort measures were employed. The patient was noted to be asystole at 2229, I pronounced patient at 2304. Summary Additional details: PRONOUNCEMENT NOTE - Date: Time: 2304 I was contacted by nursing staff regarding the patients Cessation to breath and asystole on the monitor at 2300, following attempts to reach primary service failed. See abbreviated hospital course above. Assessment: I presented to the patients room for evaluation. Upon assessment, the patient was found to be in a terminal state,. Asystole was on the monitor and confirmed in 2 leads for 2 minutes with maximum amplitude. Pupils were fixed and dilated without response. No palpable pulses appreciated. No spontaneous breaths noted. Heart sounds were absent. No response to painful stimuli. Time of : 2304 as pronounced by myself. Family not present at bedside, however were in to visit patient earlier today prior to palliative extubation. The did no wish to remain at the bedside for dying process. Family updated by RN at 2310. Questions were addressed emotional support was provided by primary nurse and no further support was requested by myself. . Patients primary service was contacted and made aware of patient demise. I santiago ve reached out to the Attending Nocturnal Physician personally. Pronouncement section of the Certificate was filled out and signed by myself. Cause of : Primary - Pneumonia Secondary - Respiratory failure Contributing Causes of - Parkinson's Disease, CVA Please feel free to contact me with any questions regarding the above-mentioned course. Additional Data Attending physician: MD Adela Covarrubias Rick MD
--- NOTE | 2024-03-10 07:49 | Discharge Summary ---
Discharge Summary Date of Service date and time of March 09, 2024 2305 hours Principal Dx & Hospital Course #1 = Principal Diagnosis (1) Embolic stroke: Pt had MRI 03/08 with confirmed acute embolic CVA-large right and small lfeft occipital lobe ischemic injury with multiple tiny foci of injury throughout the cerebrum and cerebellum, no hemorrhagic transformation on plavix, depending on course may consider statin , ABCD2 score is low so single antiplatelet agent recommended echo and CTA without origin, maybe some subacute component, could be initial event? poor pre stroke physical performance, Appreciate palliative care, coordinating compassionate extubation pt was compassionately extubated and at 2305 hours on 03/09/24 (2) Acute respiratory failure with hypoxia: Suspected aspiration with dysphagia respiratory distress not able to wean ventilatior cannot tell if CREELER impact CT chest negative for PE did show multifocal pneumonia in context of recent C OVID infection doxycycline/ zosyn (3) Metabolic encephalopathy: secondary to infection, CVA, suspect sepsis poa from respiratory or urine source legionella testing pending mrsa negative Stop all sedating medications - baclofen, gabapentin urine growing evelia and Cogulase negative staph should be covered by doxycycline (4) Elevated troponin I level: Suspected demand ischemia, continue to trend Echo 03/06 without RWMA elevated bnp maybe from volume resusitation (5) Severe acute respiratory syndrome coronavirus 2 (SARS-CoV-2) RNA test result positive at limit of detection: Initially tested positive on February 12, not suspicious of new infection on decadron (6) Parkinsons disease: After initial fluid resuscitation restarted Sinemet via [employer] (7) Anemia: of undetermined source or cause no obvious blood loss s/p 2 u prbc Admission HPI Per Admitting Provider Karolyn Snell is a 79 year old female with Parkinson's with dementia who presents to the ER from [facility] due to hypoxia. Unable to obtain history from patient due to non-verbal at this time and limited responsiveness. History also limited as patient at outside intitutions and notes not completely available at time of admission. History mainly obtained from over the phone. She initially started having COVID symptoms on February 06. He took her to the ER at [facility] on February 12 and she was confirmed to have COVID-19 at that time. The ER gave IV fluids and she felt improved therefore she was discharged home. Apparently doing well for about a day and then progressively was eating and drinking less and slowly became weaker that she had to return to the ER on February 19. She was diagnosed with bacterial pneumonia and treated with antibiotics. She kept getting significantly weaker during this admission and required a lot of assistance to move and was told there was not much more that could be done in the hospital setting therefore she was transferred to [facility] for acute rehabilitation on February 25. He reports she started to eat and drink more at [facility] and was initially improving although the last few days was becoming more tachypneic. She was started on IV Zosyn at [facility] although I am unclear when this was started. The does not think she ever saw speech and language therapy although [facility] do have oropharyngeal dysphagia listed as a diagnosis. Her notes he gave her an ensure this morning and she was coughing a lot after drinking this and on his was home he was called to say she was being transferred to the hospital. He confirms full code status. Per progress note from today at [facility] the patient had acute onset dyspnea and hypoxiam and noted to have a sodium level of 151 and potassium 2.1 this morning. Patient with known history of dysphagia and dementia and concern was she had aspirated. Acetazolamide not on progress note from today but suspect it had just been discontinued at the time of writing as confirmed with [facility] over the phone that she was still getting this medication with last dose this morning. Discharge Exam Constitutional see of progress note Discharge Plan Discharge Items Patient Disposition: Other Date/Time: 03/09/24 22:29 Hospital Stay Data Consultations 03/03/24 15:46 ED Decision to Admit Stat 03/09/24 09:54 Consult Neurology Routine 03/09/24 13:11 Consult Palliative Care Routine Diagnostic Imagining Performed 03/06/24 00:37 CT angio chest PE protocol Stat 03/07/24 07:19 CT abd pelvis IV con only Stat 03/07/24 11:40 sono, invasive monitoring [US point of care ultrasound] Urgent 03/08/24 18:15 MRI Brain [MR brain wo con] Routine 03/09/24 00:03 CTA head w con [CT angio head w con] Routine CTA neck with con [CT angio neck with con] Routine Total Time Total Time Spent Total Time Spent (In Minutes): It required greater than 30 minutes to prepare this patient for discharge. Coding Level of Care Code 63253 INP/OBS DISCH >30 MIN Diagnoses Embolic stroke I63.9 Acute respiratory failure with hypoxia J96.01 Metabolic encephalopathy G93.41 Elevated troponin I level R79.89 Severe acute respiratory syndrome coronavirus 2 (SARS-CoV-2) RNA test result positive at limit of detection U07.1 Parkinsons disease G20.A1 Anemia D64.9
[2024-03-10] MEDS ORDERED: CASPOFUNGIN 50 MG in SODIUM CHLORIDE 0.9% 250 ML IV SCH (11:00)
== END 2024-03-10 00:33 | disposition expired | DRG 871 ==
LOC: ED 14:15 → EDINP 15:55 → SUATTDRO 15:55 → 4W 18:22 → 1E 03-06 04:38